=== PATIENT | female | born 1985 | race Caucasian/White ===

== ENCOUNTER 2016-07-04 04:49 | Emergency (ER) | payer OTHER ==
[2016-07-04] MEDS ORDERED: ACETAMINOPHEN IV (For NPO) 1,000 MG in SALINE 100 100ML.BAG IVPB STA (05:03)
[2016-07-04] MEDS ORDERED: SODIUM CHLORIDE 0.9% 1,000 ML IV STA (05:03)
[2016-07-04] MEDS ORDERED: ONDANSETRON 4 MG/2 ML VIAL IVP STA ×2 (05:03→06:10)
[2016-07-04 05:31] LABS: Basophils % (A) 0 %; CH 31.6; CHCM 34.7; Eosinophils # (A) 0.1 k/uL (0-0.7); Eosinophils % (A) 1 %; HCT 40.4 % (34.0-46.0); HDW 2.54; HGB 13.5 gm/dL (11.4-16.0); Luc # (Auto) 0.11; Luc % (Auto) 1; Lymphocytes # (A) 1.2 k/uL (1.0-4.8); Lymphocytes % (A) 8 %; MCH 30.5 pg (25.0-35.0); MCHC 33.4 g/dL (31.0-37.0); MCV 91.1 fL (80.0-100.0); Mean Platelet Volume 7.4; Monocytes # (A) 0.6 k/uL (0-1.0); Monocytes % (A) 4 %; Neutrophils # (A) 11.9 k/uL (1.3-7.7); Neutrophils % (A) 86 %; RBC 4.44 m/uL (3.80-5.40); RDW 12.7 % (11.5-15.5); WBC (Perox) 13.37
[2016-07-04 05:45] LABS: ALT 50 U/L (9-52); AST 28 U/L (14-36); Alkaline Phosphatase 79 U/L (38-126); Amylase 78 U/L (30-110); Anion Gap 13 mmol/L; Blood Urea Nitrogen 13 mg/dL (7-17); Calcium 9.6 mg/dL (8.4-10.2); Carbon Dioxide 22 mmol/L (22-30); Chloride 107 mmol/L (98-107); Glucose 96 mg/dL (74-99); Non-African American GFR(MDRD) >60 (>60 ml/min/1.73 sqM); Potassium 3.8 mmol/L (3.5-5.1); Sodium 142 mmol/L (137-145); Total Bilirubin 0.7 mg/dL (0.2-1.3); Total Protein 7.7 g/dL (6.3-8.2)
[2016-07-04] MEDS ORDERED: ONDANSETRON 4 MG ODT STARTER PACK 2 TAB BTL PO STA (06:09)
--- NOTE | 2016-07-04 06:09 | ED ---
General Adult HPI - General Chief complaint: Nausea/Vomiting/Diarrhea Stated complaint: vomitting Time Seen by Provider: 07/04/16 05:55 Source: patient, RN notes reviewed Mode of arrival: ambulatory Limitations: no limitations - History of Present Illness Initial comments: This is a 30-year-old female who presents to the emergency department complaining of vomiting since 1 AM. Patient states she has not been able to stop since she woke up. Patient denies any abdominal pain but she states her abdomen is sore. Patient denies any diarrhea. Patient denies any fever or chills. Patient denies any chest pain difficulty breathing or shortness of breath. Patient states no one around her is having similar symptoms. Patient denies any back pain. Patient denies any dysuria hematuria urinary frequency. - Related Data Home Medications Medication Instructions Recorded Confirmed No Known Home Medications [No 07/04/16 07/04/16 Known Home Medications] Allergies Allergy/AdvReac Type Severity Reaction Status Date / Time No Known Allergies Allergy Verified 07/04/16 04:55 Review of Systems ROS Statement: Those systems with pertinent positive or pertinent negative responses have been documented in the HPI. ROS Other: All systems not noted in ROS Statement are negative. Past Medical History Past Medical History: Hypertension Additional Past Medical History / Comment(s): kidney stones History of Any Multi-Drug Resistant Organisms: MRSA Date of last positivie culture/infection: 05/28/16 MDRO Source:: left arm Past Surgical History: Section, Cholecystectomy, Hernia Repair, Hysterectomy, Orthopedic Surgery Additional Past Surgical History / Comment(s): cervical cancer Past Psychological History: Anxiety Smoking Status: Never smoker Past Alcohol Use History: None Reported, Occasional Past Drug Use History: None Reported General Exam - General Exam Comments Initial Comments: GENERAL: Patient is well-developed and well-nourished. Patient is nontoxic and well- hydrated and is in mild distress. ENT: Neck is soft and supple. No significant lymphadenopathy is noted. Oropharynx is clear. Moist mucous membranes. Neck has full range of motion without eliciting any pain. EYES: The sclera were anicteric and conjunctiva were pink and moist. Extraocular movements were intact and pupils were equal round and reactive to light. Eyelids were unremarkable. PULMONARY: Unlabored respirations. Good breath sounds bilaterally. No audible rales rhonchi or wheezing was noted. CARDIOVASCULAR: There is a regular rate and rhythm without any murmurs gallops or rubs. ABDOMEN: Soft and nontender with normal bowel sounds. SKIN: Skin is clear with no lesions or rashes and otherwise unremarkable. NEUROLOGIC: Patient is alert and oriented x3. Cranial nerves II through XII are grossly intact. Motor and sensory are also intact. Normal speech, volume and content. MUSCULOSKELETAL: Normal extremities with adequate strength and full range of motion. No lower extremity swelling or edema. No calf tenderness. PSYCHIATRIC: Normal psychiatric evaluation. Limitations: no limitations Course Vital Signs 07/04/16 07/04/16 04:51 06:34 Temperature 97.6 F 97 F L Pulse Rate 97 80 Respiratory 20 18 Rate Blood Pressure 148/95 133/74 O2 Sat by Pulse 100 98 Oximetry Medical Decision Making - Medical Decision Making After the initial shot of Zofran patient still had a little nausea so I repeated the dose patient received fluids and Zofran in the ER she was feeling considerably better at this point time she wanted to go home. - Lab Data Result diagrams: 07/04/16 05:30 07/04/16 05:30 Lab Results 07/04/16 07/04/16 Range/Units 05:30 05:30 WBC 14.0 H (3.8-10.6) k/uL RBC 4.44 (3.80-5.40) m/uL Hgb 13.5 (11.4-16.0) gm/dL Hct 40.4 (34.0-46.0) % MCV 91.1 (80.0-100.0) fL MCH 30.5 (25.0-35.0) pg MCHC 33.4 (31.0-37.0) g/dL RDW 12.7 (11.5-15.5) % Plt Count 205 (150-450) k/uL Neutrophils % 86 % Lymphocytes % 8 % Monocytes % 4 % Eosinophils % 1 % Basophils % 0 % Neutrophils # 11.9 H (1.3-7.7) k/uL Lymphocytes # 1.2 (1.0-4.8) k/uL Monocytes # 0.6 (0-1.0) k/uL Eosinophils # 0.1 (0-0.7) k/uL Basophils # 0.0 (0-0.2) k/uL Sodium 142 (137-145) mmol/L Potassium 3.8 (3.5-5.1) mmol/L Chloride 107 (98-107) mmol/L Carbon Dioxide 22 (22-30) mmol/L Anion Gap 13 mmol/L BUN 13 (7-17) mg/dL Creatinine 0.80 (0.52-1.04) mg/dL Est GFR (MDRD) Af Amer >60 (>60 ml/min/1.73 sqM) Est GFR (MDRD) Non-Af >60 (>60 ml/min/1.73 sqM) Glucose 96 (74-99) mg/dL Calcium 9.6 (8.4-10.2) mg/dL Total Bilirubin 0.7 (0.2-1.3) mg/dL AST 28 (14-36) U/L ALT 50 (9-52) U/L Alkaline Phosphatase 79 (38-126) U/L Total Protein 7.7 (6.3-8.2) g/dL Albumin 4.7 (3.5-5.0) g/dL Amylase 78 (30-110) U/L Lipase 73 (23-300) U/L Disposition Clinical Impression: Nausea & vomiting Disposition: HOME SELF-CARE Instructions: Acute Nausea and Vomiting (ED) Referrals: Amparo Felder MD [Primary Care Provider] - 1-2 days Time of Disposition: 06:09
[2016-07-04 06:37] VITALS: BP 133/74; PULSE 80; RESP 18; TEMP 97
== END 2016-07-04 06:38 ==
LOC: EC 04:49
DX: R11.2 Nausea with vomiting, unspecified (principal)
CPT/HCPCS: 96365; 96375; 96376; 96361; 99283; 36415; 80053; 82150; 83690; 85025; J2405; J0131; S0119

== ENCOUNTER 2016-08-05 09:28 | Day surgery (SDC) | payer OTHER ==
[2016-07-31 11:54] VITALS: BMI 22.1
[~2016-08-05 09:28] MED LIST: DEXAMETHASONE SOD PHOSPHATE 10 MG/ML 1 ML VIAL IV ONE; HEPARIN SODIUM,PORCINE 5,000 UNIT/ML 1 ML VIAL SQ ONE; LACTATED RINGERS 1,000 ML IV SCH; LIDOCAINE 1% 20 ML VIAL (10MG/ML) FOR IV START INTRADERMA PRN; ONDANSETRON 4 MG/2 ML VIAL IVP ONE; SCOPOLAMINE 1.5MG/72HR PATCH TRANSDERM ONE
[2016-08-05 11:32] VITALS: RESP 16
--- NOTE | 2016-08-05 12:49 | P.GSHP ---
History of Present Illness H&P Date: 08/05/16 Chief Complaint: Right lower quadrant incisional hernia This is a 28-year-old female who presents today for laparoscopic robotic- assisted repair of a right lower quadrant incisional hernia. Past Medical History Past Medical History: Cancer, Hypertension Additional Past Medical History / Comment(s): Hx stress related hypertension - currently resolved. Hx kidney stones, cervical cancer. History of Any Multi-Drug Resistant Organisms: MRSA Date of last positivie culture/infection: 05/28/16 MDRO Source:: Left arm Past Surgical History: Section, Cholecystectomy, Hernia Repair, Hysterectomy, Orthopedic Surgery Additional Past Surgical History / Comment(s): Has plate and 6 screws in left ankle. Past Anesthesia/Blood Transfusion Reactions: Postoperative Nausea & Vomiting ( PONV) Past Psychological History: Anxiety Smoking Status: Former smoker Past Alcohol Use History: Occasional Additional Past Alcohol Use History / Comment(s): Smoked 1/2PPD for 10 yrs, quit in 2009. Past Drug Use History: None Reported - Past Family History Mother Family Medical History: Cancer Additional Family Medical History / Comment(s): Breast Cancer Medications and Allergies Home Medications Medication Instructions Recorded Confirmed Type HYDROcodone/APAP 5-325MG [[place] 1 tab PO Q6HR PRN 07/31/16 08/05/16 History 5-325] Allergies Allergy/AdvReac Type Severity Reaction Status Date / Time No Known Allergies Allergy Verified 07/31/16 11:35 Surgical - Exam Vital Signs Temp Pulse Resp BP Pulse Ox 98.4 F 80 16 158/84 97 08/05/16 11:27 08/05/16 11:27 08/05/16 11:27 08/05/16 11:27 08/05/16 11:27 - General well developed, no distress - Eyes PERRL - ENT normal pinna - Neck no masses - Respiratory normal expansion - Cardiovascular Rhythm: regular - Abdomen Abdomen: soft, non tender Hernia: incisional (Right lower quadrant incisional hernia measuring 1 cm diameter) Assessment and Plan Plan: Right lower quadrant incisional hernia. We'll perform laparoscopic robotic- assisted repair.
[2016-08-05] MEDS ORDERED: LIDOCAINE 1% INJ 10MG/ML (20 ML MDV) ONE (13:14)
[2016-08-05] MEDS ORDERED: NEOSTIGMINE 1 MG/ML 10 ML VIAL ONE (13:14)
[2016-08-05] MEDS ORDERED: ROCURONIUM BROMIDE 10 MG/ML 10 ML VIAL IV ONE (13:14)
[2016-08-05] MEDS ORDERED: PROPOFOL 10 MG/ML 20 ML VIAL IV ONE (13:14)
[2016-08-05] MEDS ORDERED: SUCCINYLCHOLINE CHLORIDE 100 MG/5 ML SYR IV ONE (13:14)
[2016-08-05] MEDS ORDERED: KETOROLAC 30 MG/ML 1 ML VIAL ONE (13:14)
[2016-08-05] MEDS ORDERED: GLYCOPYRROLATE 0.2 MG/ML 2 ML VIAL ONE (13:14)
[2016-08-05] MEDS ORDERED: fentaNYL (PF) 50 MCG/ML 2 ML AMP ONE (13:14)
[2016-08-05] MEDS ORDERED: MIDAZOLAM 2 MG/2 ML VIAL ONE (13:14)
[2016-08-05] MEDS ORDERED: ONDANSETRON 4 MG/2 ML VIAL ONE (13:14)
[2016-08-05] MEDS: ceFAZolin 2 GM in SODIUM CHLORIDE 0.9% 100 ML IVPB ONE ×2 (13:25→13:34)
[2016-08-05] MEDS ORDERED: BUPIVACAIN-EPI 0.25%-1:200,000 30 ML VIAL SQ ONE ×2 (13:33→13:39)
[2016-08-05] MEDS: HYDROmorphone 1 MG/ML 1 ML SYRINGE IVP PRN ×5 (15:19→16:26)
--- NOTE | 2016-08-05 15:22 | P.OP ---
Date of Procedure: 08/05/16 Preoperative Diagnosis: Recurrent incisional hernia Postoperative Diagnosis: Recurrent incisional hernia Procedure(s) Performed: Laparoscopic robotic repair of recurrent incisional hernia Partial omentectomy Anesthesia: ELLIOTT Surgeon: Andrae Adorno Estimated Blood Loss (ml): 5 Pathology: other (Omentum) Condition: stable Disposition: PACU Description of Procedure: The patient's placed on the endoscopy table in the lateral position. She received general anesthesia. Her abdomen was then prepped and draped in usual sterile fashion. The patient's hernia was previously marked in the preoperative hold area was located to the right of the umbilicus. The skin incision sites were anesthetized 1% local Xylocaine. The skin was incised 11 blade. Using a 5 mm blade less trocar the perineal cavity is entered in the left upper quadrant. After adequate insufflation the laparoscope was then placed the pleural cavity. Next a 8 mm trocar was placed in the left lower quadrant and a 12 mm trocar was placed in the left lateral position. The original 5 mm trocar was exchanged for an 8 mm robotic trocar. The patient's placed the left side up position and then the patient was docked to the robot. The patient's right abdomen was examined and there appeared adhesions to the anterior abdominal wall in the right side of the abdomen. The adhesions were lysed. After the adhesions were taken down there appeared to be to be #2 small incisional hernias. Using the hook cautery the incarcerated omentum was withdrawn from the hernias. And then the fascial defect was closed with oh the lock suture. Next using a ventral light ST mesh the hernia was repaired and this mesh was secured with 20 the lock suture. The patient was then undocked from the robot the needles were retrieved. The omentum was retrieved. The trochars withdrawn. And the fascia of the 12 mm trocar site was closed with 0 Ethibond suture. The skin was closed interrupted 3-0 Monocryl suture. Dermabond dressings was applied. Patient was sent to recovery in stable condition.
[2016-08-05 15:35] VITALS: TEMP 98
[2016-08-05] MEDS ORDERED: PROMETHAZINE INJ 25 MG/ML 1 ML VIAL IVPB ONE (15:35)
[2016-08-05] MEDS ORDERED: HYDROcodone/APAP 7.5-325MG 1 EACH TAB PO ONE ×2 (16:54)
[2016-08-05 18:03] VITALS: BP 116/68; PULSE 80
== END 2016-08-05 18:39 | disposition home or self-care (01) ==
LOC: OR 09:28
PROVIDERS: ATTEND Surgery
DX: K43.2 Incisional hernia without obstruction or gangrene (principal); K66.0 Peritoneal adhesions (postprocedural) (postinfection); Z79.891 Long term (current) use of opiate analgesic; Z86.14 Personal history of Methicillin resistant Staphylococcus aureus infection; Z87.891 Personal history of nicotine dependence
CPT/HCPCS: 49656; C1781; J2250; J1644; J1100; J2550; J2710; J0690; J2405; J2001; J3010; J1885; J1170; J0330; J2704; 88304

== ENCOUNTER 2016-09-15 08:23 | Emergency (ER) | payer OTHER ==
[2016-09-15 08:32] VITALS: RESP 18; TEMP 98.3
[2016-09-15] MEDS ORDERED: ONDANSETRON 4 MG/2 ML VIAL IVP STA (08:52)
[2016-09-15] MEDS ORDERED: SODIUM CHLORIDE 0.9% 1,000 ML IV STA (08:52)
--- NOTE | 2016-09-15 08:54 | ED ---
General Adult HPI - General Chief complaint: Abdominal Pain Stated complaint: post op pain Time Seen by Provider: 09/15/16 08:46 Source: patient, RN notes reviewed Mode of arrival: ambulatory Limitations: no limitations - History of Present Illness Initial comments: Patient 31-year-old female significant past medical history for hernia repair approximately one month ago, who presents emergency room today with a chief complaint of lower abdominal pain that started approximate 4 days ago. She describes it as a "burning" type sensation to the lower abdomen just below her bellybutton. Patient states seems to be worse with certain movements at times. She currently rates pain 2/10. Denies radiation. Does admit to some nausea. Denies any other complaints or symptoms. Patient denies any recent fever, chills, shortness of breath, chest pain, back pain, vomiting, numbness or tingling, dysuria or hematuria, constipation or diarrhea, headaches or visual changes, or any other complaints. - Related Data Home Medications Medication Instructions Recorded Confirmed HYDROcodone/APAP 5-325MG [[place] 1 tab PO Q6HR PRN 07/31/16 09/15/16 5-325] Docusate [Colace] 100 - 200 mg PO BID PRN 09/15/16 09/15/16 HYDROcodone/APAP 7.5-325MG [[place] 1 tab PO Q4H PRN 09/15/16 09/15/16 7.5] Allergies Allergy/AdvReac Type Severity Reaction Status Date / Time No Known Allergies Allergy Verified 09/15/16 09:06 Review of Systems ROS Statement: Those systems with pertinent positive or pertinent negative responses have been documented in the HPI. ROS Other: All systems not noted in ROS Statement are negative. Past Medical History Past Medical History: Cancer, Hypertension Additional Past Medical History / Comment(s): Hx stress related hypertension - currently resolved. Hx kidney stones, cervical cancer. History of Any Multi-Drug Resistant Organisms: MRSA Date of last positivie culture/infection: 05/28/16 MDRO Source:: Left arm Past Surgical History: Section, Cholecystectomy, Hernia Repair, Hysterectomy, Orthopedic Surgery Additional Past Surgical History / Comment(s): Has plate and 6 screws in left ankle. Past Anesthesia/Blood Transfusion Reactions: Postoperative Nausea & Vomiting ( PONV) Past Psychological History: Anxiety Smoking Status: Former smoker Past Alcohol Use History: Occasional Additional Past Alcohol Use History / Comment(s): Smoked 1/2PPD for 10 yrs, quit in 2009. Past Drug Use History: None Reported - Past Family History Mother Family Medical History: Cancer Additional Family Medical History / Comment(s): Breast Cancer General Exam - General Exam Comments Initial Comments: General: The patient is awake and alert, in no distress, and does not appear acutely ill. Eye: Pupils are equal, round and reactive to light, extra-ocular movements are intact. No nystagmus. There is normal conjunctiva bilaterally. No signs of icterus. Ears, nose, mouth and throat: There are moist mucous membranes and no oral lesions. Neck: The neck is supple, there is no tenderness or JVD. Cardiovascular: There is a regular rate and rhythm. No murmur, rub or gallop is appreciated. Respiratory: Lungs are clear to auscultation, respirations are non-labored, breath sounds are equal. No wheezes, stridor, rales, or rhonchi. Gastrointestinal: Soft, non-distended, non-tender abdomen without masses or organomegaly noted. There is no rebound or guarding present. No CVA tenderness. Bowel sounds are unremarkable. Musculoskeletal: Normal ROM, no tenderness. Strength 5/5. Sensation intact. Pulses equal bilaterally 2+. Neurological: A&O x 3. CN II-XII intact, There are no obvious motor or sensory deficits. Coordination appears grossly intact. Speech is normal. Skin: Skin is warm and dry and no rashes or lesions are noted. Psychiatric: Cooperative, appropriate mood & affect, normal judgment. Limitations: no limitations Course Vital Signs 09/15/16 09/15/16 08:29 09:18 Temperature 98.3 F Pulse Rate 82 72 Respiratory 18 18 Rate Blood Pressure 126/83 142/83 O2 Sat by Pulse 99 98 Oximetry Medical Decision Making - Medical Decision Making Patient reexamined at this time shows no signs of distress. Patient's abdomen is soft on reexam. Patient's labs reviewed. Mild elevation of AST ALT. Patient's glucose 64. Has eaten here feeling well no dizziness or lightheadedness. Remaining labs unremarkable. No white count. Negative lactic acid. Vital stable with no fever. Case discussed with attending physician Dr. Wong. Patient will be discharged home advised follow-up with her appointment in the next 3 days. She is advised return for any fever or increase or worsening of symptoms. She states understanding and is in agreement. - Lab Data Result diagrams: 09/15/16 09:20 09/15/16 09:20 Lab Results 09/15/16 09/15/16 09/15/16 Range/Units 09:20 09:20 09:20 WBC 6.0 (3.8-10.6) k/uL RBC 4.12 (3.80-5.40) m/uL Hgb 13.0 (11.4-16.0) gm/dL Hct 37.0 (34.0-46.0) % MCV 89.9 (80.0-100.0) fL MCH 31.6 (25.0-35.0) pg MCHC 35.2 (31.0-37.0) g/dL RDW 12.4 (11.5-15.5) % Plt Count 218 (150-450) k/uL Neutrophils % 53 % Lymphocytes % 34 % Monocytes % 6 % Eosinophils % 3 % Basophils % 1 % Neutrophils # 3.2 (1.3-7.7) k/uL Lymphocytes # 2.0 (1.0-4.8) k/uL Monocytes # 0.4 (0-1.0) k/uL Eosinophils # 0.2 (0-0.7) k/uL Basophils # 0.0 (0-0.2) k/uL Sodium 144 (137-145) mmol/L Potassium 4.0 (3.5-5.1) mmol/L Chloride 106 (98-107) mmol/L Carbon Dioxide 27 (22-30) mmol/L Anion Gap 11 mmol/L BUN 11 (7-17) mg/dL Creatinine 0.70 (0.52-1.04) mg/dL Est GFR (MDRD) Af Amer >60 (>60 ml/min/1.73 sqM) Est GFR (MDRD) Non-Af >60 (>60 ml/min/1.73 sqM) Glucose 64 L (74-99) mg/dL Plasma Lactic Acid Russ (0.7-2.0) mmol/L Calcium 9.8 (8.4-10.2) mg/dL Total Bilirubin 0.5 (0.2-1.3) mg/dL AST 53 H (14-36) U/L ALT 71 H (9-52) U/L Alkaline Phosphatase 70 (38-126) U/L Total Protein 7.8 (6.3-8.2) g/dL Albumin 4.4 (3.5-5.0) g/dL Lipase 84 (23-300) U/L Urine Color Urine Appearance (Clear) Urine pH (5.0-8.0) Ur Specific Daisy (1.001-1.035) Urine Protein (Negative) Urine Glucose (UA) (Negative) Urine Ketones (Negative) Urine Blood (Negative) Urine Nitrite (Negative) Urine Bilirubin (Negative) Urine Urobilinogen (<2.0) mg/dL Ur Leukocyte Esterase (Negative) Urine HCG, Qual Not Detected (Not Detectd) 09/15/16 09/15/16 Range/Units 09:20 09:20 WBC (3.8-10.6) k/uL RBC (3.80-5.40) m/uL Hgb (11.4-16.0) gm/dL Hct (34.0-46.0) % MCV (80.0-100.0) fL MCH (25.0-35.0) pg MCHC (31.0-37.0) g/dL RDW (11.5-15.5) % Plt Count (150-450) k/uL Neutrophils % % Lymphocytes % % Monocytes % % Eosinophils % % Basophils % % Neutrophils # (1.3-7.7) k/uL Lymphocytes # (1.0-4.8) k/uL Monocytes # (0-1.0) k/uL Eosinophils # (0-0.7) k/uL Basophils # (0-0.2) k/uL Sodium (137-145) mmol/L Potassium (3.5-5.1) mmol/L Chloride (98-107) mmol/L Carbon Dioxide (22-30) mmol/L Anion Gap mmol/L BUN (7-17) mg/dL Creatinine (0.52-1.04) mg/dL Est GFR (MDRD) Af Amer (>60 ml/min/1.73 sqM) Est GFR (MDRD) Non-Af (>60 ml/min/1.73 sqM) Glucose (74-99) mg/dL Plasma Lactic Acid Russ 1.0 (0.7-2.0) mmol/L Calcium (8.4-10.2) mg/dL Total Bilirubin (0.2-1.3) mg/dL AST (14-36) U/L ALT (9-52) U/L Alkaline Phosphatase (38-126) U/L Total Protein (6.3-8.2) g/dL Albumin (3.5-5.0) g/dL Lipase (23-300) U/L Urine Color Colorless Urine Appearance Clear (Clear) Urine pH 6.5 (5.0-8.0) Ur Specific Daisy 1.002 (1.001-1.035) Urine Protein Negative (Negative) Urine Glucose (UA) Negative (Negative) Urine Ketones Negative (Negative) Urine Blood Negative (Negative) Urine Nitrite Negative (Negative) Urine Bilirubin Negative (Negative) Urine Urobilinogen <2.0 (<2.0) mg/dL Ur Leukocyte Esterase Negative (Negative) Urine HCG, Qual (Not Detectd) Disposition Clinical Impression: Abdominal pain Disposition: HOME SELF-CARE Condition: Good Instructions: Abdominal Pain (ED) Additional Instructions: Please follow-up with family surgeon in the next 2-3 days. Please return to emergency room if the symptoms increase or worsen or for any other concerns. Referrals: Amparo Felder MD [Primary Care Provider] - 1-2 days Andrae Adorno MD [STAFF PHYSICIAN] - 1-2 days Time of Disposition: 10:24
[2016-09-15 09:20] VITALS: PULSE 72
--- NOTE | 2016-09-15 09:44 | XR ---
EXAMINATION TYPE: XR KUB DATE OF EXAM: 09/15/2016 9:34 AM COMPARISON: NONE HISTORY: Left-sided abdominal pain TECHNIQUE: One view abdominal series FINDINGS: The osseous structures are intact. The bowel gas pattern is nonspecific. Lung bases are clear. Surgi angel clips in the gallbladder fossa. IMPRESSION: 1. Nonspecific abdomen.
[2016-09-15 09:45] LABS: Appearance,Urine Clear (Clear); Bilirubin,Urine Negative (Negative); Glucose,Urine (UA) Negative (Negative); Ketones,Urine Negative (Negative); Leukocyte Esterase,Urine Negative (Negative); Nitrite,Urine Negative (Negative); PH, Urine 6.5 (5.0-8.0); Protein,Urine Negative (Negative); Specific Gravity,Urine 1.002 (1.001-1.035); UA Billing (MACRO vs. MICRO) CHEM; Urobilinogen,Urine <2.0 mg/dL (<2.0)
[2016-09-15 09:50] LABS: Basophils % (A) 1 %; CH 31.5; CHCM 35.2; Eosinophils # (A) 0.2 k/uL (0-0.7); Eosinophils % (A) 3 %; HDW 2.76; Luc # (Auto) 0.21; Luc % (Auto) 3; Lymphocytes % (A) 34 %; MCH 31.6 pg (25.0-35.0); MCHC 35.2 g/dL (31.0-37.0); MCV 89.9 fL (80.0-100.0); Mean Platelet Volume 8.2; Monocytes # (A) 0.4 k/uL (0-1.0); Monocytes % (A) 6 %; Neutrophils # (A) 3.2 k/uL (1.3-7.7); Neutrophils % (A) 53 %; RBC 4.12 m/uL (3.80-5.40); RDW 12.4 % (11.5-15.5); WBC (Perox) 5.98
[2016-09-15 10:40] LABS: ALT 71 U/L (9-52); AST 53 U/L (14-36); Alkaline Phosphatase 70 U/L (38-126); Anion Gap 11 mmol/L; Blood Urea Nitrogen 11 mg/dL (7-17); Calcium 9.8 mg/dL (8.4-10.2); Carbon Dioxide 27 mmol/L (22-30); Chloride 106 mmol/L (98-107); Glucose 64 mg/dL (74-99); Non-African American GFR(MDRD) >60 (>60 ml/min/1.73 sqM); Sodium 144 mmol/L (137-145); Total Bilirubin 0.5 mg/dL (0.2-1.3); Total Protein 7.8 g/dL (6.3-8.2)
[2016-09-15 10:51] VITALS: BP 158/94
== END 2016-09-15 10:56 | disposition home or self-care (01) ==
LOC: EC 08:23
DX: R10.30 Lower abdominal pain, unspecified (principal); R11.0 Nausea; I10 Essential (primary) hypertension; F41.9 Anxiety disorder, unspecified; Z85.41 Personal history of malignant neoplasm of cervix uteri; Z87.891 Personal history of nicotine dependence; Z90.49 Acquired absence of other specified parts of digestive tract; Z90.710 Acquired absence of both cervix and uterus
CPT/HCPCS: 36415; 80053; 83605; 83690; 85025; 81003; 81025; 74000; 99284; 96374; 96361 ×2; J2405

== ENCOUNTER → 2016-10-02 | Outpatient (CLI) | payer OTHER ==
--- NOTE | 2016-10-02 16:37 | CT ---
EXAMINATION TYPE: CT abdomen pelvis w con DATE OF EXAM: 10/02/2016 4:23 PM REFERENCE: Previous study dated 11/23/2015. HISTORY: R10.9 left flank pain, Z85.41 hx cervical CA HISTORY: Left groin pain after hernia repair 4 1/2 weeks ago. History of cervical cancer. REFERENCE: NONE CT DLP: 1126.00 mGy Automated exposure control for dose reduction was used. TECHNIQUE: Helical acquisition through the abdomen and pelvis was obtained following the oral ingesti on of with Oral Contrast and following intravenous administration of 100 mL of Omnipaque 300. The nahomy a was reformatted in axial, coronal and sagittal projections. FINDINGS: There are at least 3 subpleural nodules in the right lower lobe and middle lobe which is s table in comparison with previous examination. There is no pleural or pericardial fluid. The heart is not enlarged. Within the abdomen, the gallbladder is been removed. The liver measures 18 cm. This is largely due to a prominent Julissa's lobe. The spleen is unremarkable. Both adrenal glands are normal. There is no evidence of hydronephrosis or nephrolithiasis. Both kidneys demonstrate function and appe ar morphologically normal. The pancreas is unremarkable. There is no significant retroperitoneal, iliac or inguinal adenopathy. There is follicular change in both ovaries. The uterus is not visualized. The bladder is unremarkable. The left side of the colon is collapsed. The appendix is normal. Small bowel loops are normal. No free air is seen. There is a small amount of free fluid within the pelvis. There are sclerotic foci in the left humeral head as well as the acetabulum. There is no significant degenerative change. IMPRESSION: 1. NO EVIDENCE OF HYDRONEPHROSIS OR NEPHROLITHIASIS. 2. COLLAPSE OF THE LEFT SIDE OF THE COLON MAKES IT DIFFICULT TO ASSESS COLONIC WALL THICKNESS. PLEASE CORRELATE CLINICALLY TO EXCLUDE COLITIS. 3. MULTIPLE STABLE PULMONARY NODULES. 4. SEVERAL STABLE SCLEROTIC FOCI DESCRIBED. THIS IN COMBINATION WITH MULTIPLE PULMONARY NODULES RA ISES A MILD SUSPICION FOR METASTATIC DISEASE. A NUCLEAR MEDICINE WHOLE BODY BONE SCAN WOULD BE RECOMM ENDED.
== END | disposition home or self-care (01) ==
LOC: RADCTMAIN 15:51
PROVIDERS: ATTEND Internal Medicine
DX: K63.89 Other specified diseases of intestine (principal); Z85.41 Personal history of malignant neoplasm of cervix uteri
CPT/HCPCS: 74177; Q9967

== ENCOUNTER → 2016-10-08 | Outpatient (CLI) | payer OTHER ==
--- NOTE | 2016-10-08 15:04 | NM ---
EXAMINATION TYPE: NM bone scan whole body DATE OF EXAM: 10/08/2016 2:59 PM COMPARISON: NONE HISTORY: Cervical cancer Delayed whole-body scanning was performed following the injection of 27.1 mCi Tc 99m MDP. Images acq uired 3 hours post injection. FINDINGS: Uptake within the left foot likely post traumatic or post arthritic. No suspicious areas of abnormal increased or reduced uptake. Faint area of abnormal uptake in the upper thoracic spine likely degenerative. IMPRESSION: No suspicious uptake to suggest metastases.
== END | disposition home or self-care (01) ==
LOC: RADNMMAIN 11:16
PROVIDERS: ATTEND Internal Medicine
DX: R91.8 Other nonspecific abnormal finding of lung field (principal); Z85.41 Personal history of malignant neoplasm of cervix uteri
CPT/HCPCS: 78306; A9503

== ENCOUNTER 2016-10-10 22:51 | Emergency (ER) | payer OTHER ==
[2016-10-10 23:01] VITALS: BP 125/77; PULSE 92; RESP 20; TEMP 99.3
[2016-10-10] MEDS ORDERED: SULFAMETH-TMP DS STARTER PACK 2 TAB BTL PO STA (23:53)
--- NOTE | 2016-10-10 23:56 | ED ---
Skin/Abscess/FB HPI - General Chief complaint: Skin/Abscess/Foreign Body Stated complaint: left axillary boil Time Seen by Provider: 10/10/16 23:08 Source: patient, family Mode of arrival: ambulatory Limitations: no limitations - History of Present Illness Initial comments: Patient is a 32-year-old [employer] chief complaint of abscess underneath her left axilla. Patient reports that she's had these before. She states that she cannot receive the rate of them. Patient states she's never seen a industrial refrigeration mechanic before. She states she's had no fever or chills patient has feels hard lumps underneath her left axilla patient denies any pain or abscess in the right ankle. Patient states that she has not had any recent antibiotics. Denies any fever or chills, denies any chest pain, shortness of breath, nausea, vomiting, abdominal pain, changes in urination and bowel movements. denies any headache or changes in vision. - Related Data Home Medications Medication Instructions Recorded Confirmed HYDROcodone/APAP 5-325MG [[place] 1 tab PO Q6HR PRN 07/31/16 10/10/16 5-325] HYDROcodone/APAP 7.5-325MG [[place] 1 tab PO Q4H PRN 09/15/16 10/10/16 7.5] Previous Rx's Medication Instructions Recorded HYDROcodone/APAP 5-325MG [[place] 1 tab PO Q6HR PRN #10 tab 10/10/16 5-325] Sulfamethox-Tmp 800-160Mg [Bactrim 1 tab PO Q12HR #14 tab 10/10/16 DS 800-160 mg] Allergies Allergy/AdvReac Type Severity Reaction Status Date / Time No Known Allergies Allergy Verified 10/10/16 23:01 Review of Systems ROS Statement: Those systems with pertinent positive or pertinent negative responses have been documented in the HPI. ROS Other: All systems not noted in ROS Statement are negative. Past Medical History Past Medical History: Cancer, Hypertension Additional Past Medical History / Comment(s): Hx stress related hypertension - currently resolved. Hx kidney stones, cervical cancer. History of Any Multi-Drug Resistant Organisms: MRSA Date of last positivie culture/infection: 05/28/16 MDRO Source:: Left arm Past Surgical History: Section, Cholecystectomy, Hernia Repair, Hysterectomy, Orthopedic Surgery Additional Past Surgical History / Comment(s): Has plate and 6 screws in left ankle. Past Anesthesia/Blood Transfusion Reactions: Postoperative Nausea & Vomiting ( PONV) Past Psychological History: Anxiety Smoking Status: Former smoker Past Alcohol Use History: Occasional Additional Past Alcohol Use History / Comment(s): Smoked 1/2PPD for 10 yrs, quit in 2009. Past Drug Use History: None Reported - Past Family History Mother Family Medical History: Cancer Additional Family Medical History / Comment(s): Breast Cancer General Exam - General Exam Comments Initial Comments: Pleasant 31-year-old female. No distress. Limitations: no limitations General appearance: alert, in no apparent distress Head exam: Present: atraumatic, normocephalic, normal inspection Eye exam: Present: normal appearance, PERRL, EOMI. Absent: scleral icterus, conjunctival injection, periorbital swelling ENT exam: Present: normal exam, mucous membranes moist Neck exam: Present: normal inspection. Absent: tenderness, meningismus, lymphadenopathy Respiratory exam: Present: normal lung sounds bilaterally. Absent: respiratory distress, wheezes, rales, rhonchi, stridor Cardiovascular Exam: Present: regular rate, normal rhythm, normal heart sounds. Absent: systolic murmur, diastolic murmur, rubs, gallop, clicks GI/Abdominal exam: Present: soft, normal bowel sounds. Absent: distended, tenderness, guarding, rebound, rigid Extremities exam: Present: normal inspection, full ROM, normal capillary refill. Absent: tenderness, pedal edema, joint swelling, calf tenderness Back exam: Present: normal inspection Neurological exam: Present: alert, oriented X3, CN II-XII intact Psychiatric exam: Present: normal affect, normal mood Skin exam: Present: warm, dry, intact, normal color, erythema (Left axilla. Multiple hard nodules and abscesses. Consistent with hydradenitis suppuritiva.) . Absent: rash Course Vital Signs 10/10/16 22:58 Temperature 99.3 F Pulse Rate 92 Respiratory 20 Rate Blood Pressure 125/77 O2 Sat by Pulse 100 Oximetry Medical Decision Making - Medical Decision Making is 31-year-old female with multiple abscesses and nodules in the left axilla. Patient reports she's had them drained in the past. Patient had 2 large nodules that are causing most pain. Patient wants them incised and drained. Patient did have significant pus and wound culture was obtained. Patient was started on Bactrim and given pain medication. Patient received treatment plan will comply. Discussion is follow-up with industrial refrigeration mechanic. Patient history plan will comply. Disposition Clinical Impression: Axillary hidradenitis suppurativa Disposition: HOME SELF-CARE Condition: Good Instructions: Abscess Incision and Drainage (ED) Additional Instructions: Patient is follow-up with industrial refrigeration mechanic regards to her hydranitis suppurivica Patient needs to take entire antibiotic prescription and use pain medication instructed. Remove drain in a privately 3 days. Return to emergency department if any alarming signs or symptoms occur. Prescriptions: HYDROcodone/APAP 5-325MG [[place] 5-325] 1 tab PO Q6HR PRN #10 tab PRN Reason: Pain Sulfamethox-Tmp 800-160Mg [Bactrim DS 800-160 mg] 1 tab PO Q12HR #14 tab Referrals: Amparo Felder MD [Primary Care Provider] - 1-2 days Time of Disposition: 23:54
[2016-10-11] MEDS ORDERED: ACET/COD 300 MG/30 MG STARTER PACK 6 TAB BTL PO STA (00:23)
== END 2016-10-11 00:34 | disposition home or self-care (01) ==
LOC: EC 22:51
DX: L73.2 Hidradenitis suppurativa (principal); Z87.891 Personal history of nicotine dependence
CPT/HCPCS: 87070; 87077; 87186; 87205; 99283

== ENCOUNTER 2016-10-22 09:00 | Day surgery (SDC) | payer OTHER ==
[2016-10-20 14:11] VITALS: BMI 22.8
[~2016-10-22 09:00] MED LIST changes: -DEXAMETHASONE SOD PHOSPHATE 10 MG/ML 1 ML VIAL IV ONE; -HEPARIN SODIUM,PORCINE 5,000 UNIT/ML 1 ML VIAL SQ ONE; -LIDOCAINE 1% 20 ML VIAL (10MG/ML) FOR IV START INTRADERMA PRN; -ONDANSETRON 4 MG/2 ML VIAL IVP ONE; -SCOPOLAMINE 1.5MG/72HR PATCH TRANSDERM ONE
[2016-10-22 09:13] VITALS: TEMP 98
[2016-10-22] MEDS ORDERED: fentaNYL (PF) 50 MCG/ML 2 ML AMP ONE (09:34)
[2016-10-22] MEDS ORDERED: PROPOFOL 10 MG/ML 20 ML VIAL IV ONE (09:34)
[2016-10-22] MEDS ORDERED: MIDAZOLAM 2 MG/2 ML VIAL ONE (09:34)
[2016-10-22 10:04] VITALS: RESP 18
[2016-10-22 10:18] VITALS: BP 124/78; PULSE 72
--- NOTE | 2016-10-22 11:28 | P.PCN ---
Date of Procedure: 10/22/16 Procedure(s) Performed: Procedure: Total colonoscopy and biopsy. Preoperative diagnosis: Change in bowel habits and abnormal CT of the abdomen. Postoperative diagnosis: Exam of the colon and terminal ileum within normal limits. Preparation: HalfLytely prep. Sedation: Was provided by anesthesia. Brief clinical history: The patient is a 31-year-old female who is referred for this evaluation because of abnormal CT of the abdomen with poor visualization of the right colon because of lack of distention. The patient has been having issues with loose and diarrheic stools that started this year. Prior to that, used to have a bowel movement every few days. No family history of inflammatory bowel disease. She had hysterectomy for cervical cancer. No extraintestinal manifestations of inflammatory bowel disease. Procedure: With the patient on her left lateral decubitus position and after informed consent and adequate sedation, the perianal area was inspected and it did not show any fissures or fistulas. There were no masses felt on digital rectal examination. The Olympus CFQ 160L video colonoscope was then inserted in the rectum in the usual fashion and advanced to the cecum. I intubated the ileocecal valve and examined the terminal ileum. Terminal ileum and colon appeared healthy with no edema, erythema, friability, ulceration, exudation or spontaneous bleeding. No polyps or tumors were seen or any obvious diverticular disease. I retroflexed endoscope in the rectum and I obtained biopsies from the terminal ileum and right colon before the endoscope was withdrawn. The patient tolerated the procedure well. Plan: The patient was reassured. Will await biopsy results. Further plans based on her course. She will follow-up with you as planned.
== END 2016-10-22 10:32 | disposition home or self-care (01) ==
LOC: ORWHC2ENDO 09:00
DX: K52.9 Noninfective gastroenteritis and colitis, unspecified (principal)
CPT/HCPCS: 88305; 45380; J2250; J3010; J2704

== ENCOUNTER 2016-11-08 01:53 | Emergency (ER) | payer OTHER ==
[2016-11-08 02:29] VITALS: BP 153/85; PULSE 92; RESP 20; TEMP 98.5
[2016-11-08] MEDS ORDERED: SULFAMETH-TMP DS STARTER PACK 2 TAB BTL PO STA (02:42)
--- NOTE | 2016-11-08 02:44 | ED ---
Skin/Abscess/FB HPI - General Chief complaint: Skin/Abscess/Foreign Body Stated complaint: abcess under left arm Time Seen by Provider: 11/08/16 02:25 Source: patient, RN notes reviewed, old records reviewed Mode of arrival: ambulatory Limitations: no limitations - History of Present Illness Initial comments: This is a 31 year old female with recurrent left axilla abscess. PAtient was incised and drained, and the culture grew MRSA. PAtient states that she was doing better once on BActrim, but the abscess reoccured once she was off of them. She states that it is panful to move her arm. Denies any increased redness around the site. Denies any fever, chills, nausea vomiting, abdominal pain. - Related Data Home Medications Medication Instructions Recorded Confirmed Multivitamin [Multivitamins Adult 1 each PO DAILY 10/20/16 11/08/16 Gummies] Previous Rx's Medication Instructions Recorded HYDROcodone/APAP 5-325MG [[place] 1 tab PO Q6HR PRN #10 tab 10/10/16 5-325] Sulfamethox-Tmp 800-160Mg [Bactrim 2 tab PO Q12HR 7 Days 11/08/16 DS 800-160 mg] Allergies Allergy/AdvReac Type Severity Reaction Status Date / Time No Known Allergies Allergy Verified 11/08/16 02:06 Review of Systems ROS Statement: Those systems with pertinent positive or pertinent negative responses have been documented in the HPI. ROS Other: All systems not noted in ROS Statement are negative. Past Medical History Past Medical History: Cancer, Hypertension Additional Past Medical History / Comment(s): states "intermittent abdominal pain and left side of colon being collapsed on CT scan, also stated stable pulmonary nodules on ct scan",Hx stress related hypertension - currently resolved. Hx kidney stones, cervical cancer. History of Any Multi-Drug Resistant Organisms: MRSA Date of last positivie culture/infection: 10-11-2016 MDRO Source:: Left arm axilla Past Surgical History: Section, Cholecystectomy, Hernia Repair, Hysterectomy, Orthopedic Surgery Additional Past Surgical History / Comment(s): Has plate and 6 screws in left ankle-hardware removed lt ankle August 2016,hernia repairs x 4,c sect x3 Past Anesthesia/Blood Transfusion Reactions: Family History of Problems w/ Anesthesia, Postoperative Nausea & Vomiting (PONV) Additional Past Anesthesia/Blood Transfusion Reaction / Comment(s): mother has PONV,no hx blood transfusion Past Psychological History: Anxiety Smoking Status: Former smoker Past Alcohol Use History: Occasional Additional Past Alcohol Use History / Comment(s): Smoked 1/2PPD for 10 yrs, quit in 2009. Past Drug Use History: None Reported - Past Family History Mother Family Medical History: Cancer, Hypertension Additional Family Medical History / Comment(s): Breast Cancer,fadia mastectomy Father Family Medical History: Asthma, Diabetes Mellitus, Hypertension, Rheumatoid Arthritis (RA) General Exam - General Exam Comments Initial Comments: Pleasant 31 year old female, no distress. Limitations: no limitations General appearance: alert, in no apparent distress Head exam: Present: atraumatic, normocephalic, normal inspection Eye exam: Present: normal appearance, PERRL, EOMI. Absent: scleral icterus, conjunctival injection, periorbital swelling ENT exam: Present: normal exam, mucous membranes moist Neck exam: Present: normal inspection. Absent: tenderness, meningismus, lymphadenopathy Respiratory exam: Present: normal lung sounds bilaterally. Absent: respiratory distress, wheezes, rales, rhonchi, stridor Cardiovascular Exam: Present: regular rate, normal rhythm, normal heart sounds. Absent: systolic murmur, diastolic murmur, rubs, gallop, clicks GI/Abdominal exam: Present: soft, normal bowel sounds. Absent: distended, tenderness, guarding, rebound, rigid Extremities exam: Present: normal inspection, full ROM, normal capillary refill , other (left axilla abscess measuring 2 cm and deep, not ready to be drained. ) . Absent: tenderness, pedal edema, joint swelling, calf tenderness Back exam: Present: normal inspection Neurological exam: Present: alert, oriented X3, CN II-XII intact Psychiatric exam: Present: normal affect, normal mood Skin exam: Present: warm, dry, intact, normal color. Absent: rash Course Vital Signs 11/08/16 11/08/16 02:02 02:54 Temperature 98.5 F 98.5 F Pulse Rate 92 92 Respiratory 20 20 Rate Blood Pressure 153/85 153/85 O2 Sat by Pulse 99 99 Oximetry Medical Decision Making - Medical Decision Making This is a 31 year old female with chief complaint of recurrent left axilla abscess. Abscess is approximately 2 cm and deep, not ready to be incised and drained at this time. Discussed diagnosis of hydrinatis suppurativa. Patient relates she has appointment with dermatology in 3 days. Patient will be started on bactrim, advised to apply warm conpresses on the area. Patient agrees to treatment plan and return parameters were discussed. Disposition Clinical Impression: Abscess of left axilla, Axillary hidradenitis suppurativa Disposition: HOME SELF-CARE Condition: Good Instructions: Abscess (ED) Additional Instructions: eye secondary apply warm compresses over the area. Take at home pain medication and anxiety medication. Return the emergency department if any alarming signs or symptoms occur. Follow-up with your supervisor pressing department on Wednesday. Prescriptions: Sulfamethox-Tmp 800-160Mg [Bactrim DS 800-160 mg] 2 tab PO Q12HR 7 Days Referrals: Amparo Felder MD [Primary Care Provider] - 1-2 days Time of Disposition: 02:43
== END 2016-11-08 02:54 | disposition home or self-care (01) ==
LOC: EC 01:53
DX: L02.412 Cutaneous abscess of left axilla (principal); L73.2 Hidradenitis suppurativa; Z86.14 Personal history of Methicillin resistant Staphylococcus aureus infection; Z85.9 Personal history of malignant neoplasm, unspecified; Z87.891 Personal history of nicotine dependence; Z79.899 Other long term (current) drug therapy
CPT/HCPCS: 99283

== ENCOUNTER 2016-11-26 09:14 | Emergency (ER) | payer OTHER ==
[2016-11-26] MEDS ORDERED: MAG HYDROX/AL HYDROX/SIMETH 30 ML, HYOSCYAMINE ELIXIR 10 ML, CIMETIDINE HCL 300 MG, LID... PO STA ×4 (10:02)
--- NOTE | 2016-11-26 10:20 | ED ---
General Adult HPI - General Chief complaint: Chest Pain Stated complaint: HEARTBURN, SENT BY [facility] EKG Time Seen by Provider: 11/26/16 09:57 Source: patient, RN notes reviewed Mode of arrival: wheelchair Limitations: no limitations - History of Present Illness Initial comments: Patient is a 31-year-old female who presents emergency room today with a chief complaint of some acid reflux. She states that she noticed it last night approximately midnight. She states that seem to go away. She states she woke up this morning she was getting ready came back. She describes it as a "burning " type pain. States feels it in the lower portion of her chest. She also admits that she feels some pain to her back. She states she went to urgent care who performed an EKG. She states she was not told anything about but they advised to come here to the emergency room for further evaluation. She denies any other complaints at this time. Patient denies any recent fever, chills, shortness of breath, abdominal pain, nausea or vomiting, numbness or tingling, dysuria or hematuria, constipation or diarrhea, headaches or visual changes, or any other complaints. - Related Data Home Medications Medication Instructions Recorded Confirmed Multivitamin with Iron 1 tab PO DAILY 11/26/16 11/26/16 [Multivitamins with Iron] Previous Rx's Medication Instructions Recorded HYDROcodone/APAP 5-325MG [[place] 1 tab PO Q6HR PRN #10 tab 10/10/16 5-325] Famotidine [Pepcid] 20 mg PO BID #20 tablet 11/26/16 Allergies Allergy/AdvReac Type Severity Reaction Status Date / Time No Known Allergies Allergy Verified 11/26/16 10:16 Review of Systems ROS Statement: Those systems with pertinent positive or pertinent negative responses have been documented in the HPI. ROS Other: All systems not noted in ROS Statement are negative. Past Medical History Past Medical History: Cancer, Hypertension Additional Past Medical History / Comment(s): states "intermittent abdominal pain and left side of colon being collapsed on CT scan, also stated stable pulmonary nodules on ct scan",Hx stress related hypertension - currently resolved. Hx kidney stones, cervical cancer. History of Any Multi-Drug Resistant Organisms: MRSA Date of last positivie culture/infection: 10-11-2016 MDRO Source:: Left arm axilla Past Surgical History: Section, Cholecystectomy, Hernia Repair, Hysterectomy, Orthopedic Surgery Additional Past Surgical History / Comment(s): Has plate and 6 screws in left ankle-hardware removed lt ankle August 2016,hernia repairs x 4,c sect x3 Past Anesthesia/Blood Transfusion Reactions: Family History of Problems w/ Anesthesia, Postoperative Nausea & Vomiting (PONV) Additional Past Anesthesia/Blood Transfusion Reaction / Comment(s): mother has PONV,no hx blood transfusion Past Psychological History: Anxiety Smoking Status: Former smoker Past Alcohol Use History: Occasional Additional Past Alcohol Use History / Comment(s): Smoked 1/2PPD for 10 yrs, quit in 2009. Past Drug Use History: None Reported - Past Family History Mother Family Medical History: Cancer, Hypertension Additional Family Medical History / Comment(s): Breast Cancer,fadia mastectomy Father Family Medical History: Asthma, Diabetes Mellitus, Hypertension, Rheumatoid Arthritis (RA) General Exam - General Exam Comments Initial Comments: General: The patient is awake and alert, in no distress, and does not appear acutely ill. Eye: Pupils are equal, round and reactive to light, extra-ocular movements are intact. No nystagmus. There is normal conjunctiva bilaterally. No signs of icterus. Ears, nose, mouth and throat: There are moist mucous membranes and no oral lesions. Neck: The neck is supple, there is no tenderness or JVD. Cardiovascular: There is a regular rate and rhythm. No murmur, rub or gallop is appreciated. Respiratory: Lungs are clear to auscultation, respirations are non-labored, breath sounds are equal. No wheezes, stridor, rales, or rhonchi. Gastrointestinal: Soft, non-distended, non-tender abdomen without masses or organomegaly noted. There is no rebound or guarding present. No CVA tenderness. Bowel sounds are unremarkable. Musculoskeletal: Normal ROM, no tenderness. Strength 5/5. Sensation intact. Pulses equal bilaterally 2+. Neurological: A&O x 3. CN II-XII intact, There are no obvious motor or sensory deficits. Coordination appears grossly intact. Speech is normal. Skin: Skin is warm and dry and no rashes or lesions are noted. Psychiatric: Cooperative, appropriate mood & affect, normal judgment. Limitations: no limitations Course Vital Signs 11/26/16 11/26/16 09:20 10:14 Temperature 98.6 F Pulse Rate 81 84 Respiratory 18 20 Rate Blood Pressure 132/85 164/90 O2 Sat by Pulse 98 Oximetry EKG Findings - EKG Comments: EKG Findings:: EKG performed at 0950: A 12-lead EKG was performed and interpreted by me as showing the following: Rate is 80, and rhythm is normal sinus. There are normal QRS complexes and normal R-wave progression. ST segments have no elevation or depression, and UT segments appear normal. Medical Decision Making - Medical Decision Making Patient reexamined at this time shows no signs of distress. She was given GI cocktail here in the emergency room and does admit to improvement. She states she is pain-free at this time. Patient's EKG unremarkable shows normal sinus rhythm. His x-rays negative. Patient's labs were obtained. Again symptoms obtained and are negative. Patient at this time is pain-free is been resolved with GI cocktail. This that they didn't feel like heartburn to herself. She will be discharged home advised close follow-up the family doctor over the next 2 days advised to return if symptoms increase worsen. Patient advised to use Pepcid for symptoms with [id number] Tums as needed. Advised return if anything increases or worsens or for any other concerns. She states understanding and is in agreement. - Lab Data Result diagrams: 11/26/16 10:39 11/26/16 10:39 Lab Results 11/26/16 11/26/16 11/26/16 Range/Units 10:39 10:39 10:39 WBC 6.7 (3.8-10.6) k/uL RBC 4.55 (3.80-5.40) m/uL Hgb 14.3 (11.4-16.0) gm/dL Hct 42.5 (34.0-46.0) % MCV 93.4 (80.0-100.0) fL MCH 31.4 (25.0-35.0) pg MCHC 33.6 (31.0-37.0) g/dL RDW 12.8 (11.5-15.5) % Plt Count 202 (150-450) k/uL Neutrophils % 58 % Lymphocytes % 33 % Monocytes % 5 % Eosinophils % 1 % Basophils % 1 % Neutrophils # 3.9 (1.3-7.7) k/uL Lymphocytes # 2.2 (1.0-4.8) k/uL Monocytes # 0.4 (0-1.0) k/uL Eosinophils # 0.1 (0-0.7) k/uL Basophils # 0.1 (0-0.2) k/uL Sodium 143 (137-145) mmol/L Potassium 3.8 (3.5-5.1) mmol/L Chloride 104 (98-107) mmol/L Carbon Dioxide 27 (22-30) mmol/L Anion Gap 12 mmol/L BUN 11 (7-17) mg/dL Creatinine 0.74 (0.52-1.04) mg/dL Est GFR (MDRD) Af Amer >60 (>60 ml/min/1.73 sqM) Est GFR (MDRD) Non-Af >60 (>60 ml/min/1.73 sqM) Glucose 89 (74-99) mg/dL Calcium 10.0 (8.4-10.2) mg/dL Total Bilirubin 0.8 (0.2-1.3) mg/dL AST 34 (14-36) U/L ALT 47 (9-52) U/L Alkaline Phosphatase 79 (38-126) U/L Total Creatine Kinase 54 (30-135) U/L CK-MB (CK-2) 0.4 (0.0-2.4) ng/mL CK-MB (CK-2) Rel Index 0.7 Troponin I <0.012 (0.000-0.034) ng/mL Total Protein 8.7 H (6.3-8.2) g/dL Albumin 5.2 H (3.5-5.0) g/dL Disposition Clinical Impression: Acid reflux Disposition: HOME SELF-CARE Condition: Good Instructions: Gastroesophageal Reflux Disease (ED) Additional Instructions: Please use medication as discussed. Please follow-up with family doctor in the next 2 days. Please return to emergency room if the symptoms increase or worsen or for any other concerns. Prescriptions: Famotidine [Pepcid] 20 mg PO BID #20 tablet Referrals: Amparo Felder MD [Primary Care Provider] - 1-2 days Time of Disposition: 11:39
[2016-11-26 10:53] LABS: Basophils # (A) 0.1 k/uL (0-0.2); Basophils % (A) 1 %; CHCM 34.4; Eosinophils # (A) 0.1 k/uL (0-0.7); Eosinophils % (A) 1 %; HCT 42.5 % (34.0-46.0); HDW 2.55; HGB 14.3 gm/dL (11.4-16.0); Luc # (Auto) 0.19; Luc % (Auto) 3; Lymphocytes # (A) 2.2 k/uL (1.0-4.8); Lymphocytes % (A) 33 %; MCH 31.4 pg (25.0-35.0); MCHC 33.6 g/dL (31.0-37.0); MCV 93.4 fL (80.0-100.0); Mean Platelet Volume 7.4; Monocytes # (A) 0.4 k/uL (0-1.0); Monocytes % (A) 5 %; Neutrophils # (A) 3.9 k/uL (1.3-7.7); Neutrophils % (A) 58 %; RBC 4.55 m/uL (3.80-5.40); RDW 12.8 % (11.5-15.5); WBC 6.7 k/uL (3.8-10.6); WBC (Perox) 6.68
--- NOTE | 2016-11-26 11:04 | XR ---
EXAMINATION TYPE: XR chest 2V DATE OF EXAM: 11/26/2016 COMPARISON: 11/23/2015 HISTORY: Chest pain TECHNIQUE: Frontal and lateral views of the chest are obtained. FINDINGS: There is no focal air space opacity. No evidence for pnuemothorax.No pleural effusion. The cardiac silhouette size is within normal limits. The osseous structures are grossly intact. IMPRESSION: 1. No acute cardiopulmonary process.
[2016-11-26 11:05] LABS: ALT 47 U/L (9-52); AST 34 U/L (14-36); Alkaline Phosphatase 79 U/L (38-126); Anion Gap 12 mmol/L; Blood Urea Nitrogen 11 mg/dL (7-17); Carbon Dioxide 27 mmol/L (22-30); Chloride 104 mmol/L (98-107); Glucose 89 mg/dL (74-99); Non-African American GFR(MDRD) >60 (>60 ml/min/1.73 sqM); Potassium 3.8 mmol/L (3.5-5.1); Sodium 143 mmol/L (137-145); Total Bilirubin 0.8 mg/dL (0.2-1.3); Total Protein 8.7 g/dL (6.3-8.2)
[2016-11-26 11:22] LABS: Creatine Kinase 54 U/L (30-135)
[2016-11-26 11:33] LABS: Creatine Kinase MB 0.4 ng/mL (0.0-2.4); Troponin I <0.012 ng/mL (0.000-0.034)
[2016-11-26 11:50] VITALS: BP 108/77; PULSE 87; RESP 18; TEMP 98.4
== END 2016-11-26 11:50 | disposition home or self-care (01) ==
LOC: EC 09:14
DX: K21.9 Gastro-esophageal reflux disease without esophagitis (principal); M54.9 Dorsalgia, unspecified; Z87.891 Personal history of nicotine dependence; Z79.899 Other long term (current) drug therapy; Z85.41 Personal history of malignant neoplasm of cervix uteri; Z90.49 Acquired absence of other specified parts of digestive tract; Z90.710 Acquired absence of both cervix and uterus
CPT/HCPCS: 36415; 71020; 80053; 82550; 82553; 84484; 85025; 93005; 99285

== ENCOUNTER 2016-12-24 21:53 | Emergency (ER) | payer OTHER ==
[2016-12-24 22:12] VITALS: BP 146/84; PULSE 94; RESP 16; TEMP 98.5
--- NOTE | 2016-12-24 23:17 | ED ---
Skin/Abscess/FB HPI - General Chief complaint: Skin/Abscess/Foreign Body Stated complaint: Rash/ Fever Source: patient Mode of arrival: ambulatory Limitations: no limitations - History of Present Illness Initial comments: Patient is a 31-year-old female presenting to the emergency department with complaints of abscess to the left axilla. Patient states it started as a small bump 5 days ago and has gotten increasingly more painful and bigger in size. 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 Patient states she drained some green pus out of the abscess yesterday. Patient denies chills, reports low-grade fever, denies nausea, vomiting, shortness of breath, chest pain, or abdominal pain. Patient denies numbness or tingling. Patient denies possibility of being as she had a hysterectomy. Patient believes she had a tetanus shot less than 5 years ago and prefers to follow-up with her primary care physician if she needs one. MD complaint: abscess/boil Onset/Timin -: days(s) Tetanus Up to Date: unsure Location: LUE (Left axilla) Severity: moderate Severity scale (1-10): 7 Quality: sharp, constant Consistency: constant Improves with: none Worsens with: none Context: other (Abscess under left axilla) Associated symptoms: fever (Patient states she had a temperature of 100 today.) Treatments Prior to Arrival: attempted to drain pus at home - Related Data Home Medications Medication Instructions Recorded Confirmed Multivitamins, Thera [Multivitamin 1 tab PO DAILY 12/24/16 12/24/16 (formulary)] Mupirocin 2% Nasal Oint [Bactroban 1 applic NASAL HS PRN 12/24/16 12/24/16 2% Nasal Oint] Previous Rx's Medication Instructions Recorded HYDROcodone/APAP 5-325MG [Wister 1 tab PO Q6HR PRN #10 tab 10/10/16 5-325] HYDROcodone/APAP 5-325MG [Wister 1 tab PO Q6H PRN #10 tab 12/25/16 5-325] Sulfamethox-Tmp 800-160Mg [Bactrim 1 tab PO Q12HR #20 tab 12/25/16 DS 800-160 mg] Allergies Allergy/AdvReac Type Severity Reaction Status Date / Time No Known Allergies Allergy Verified 12/24/16 22:11 Review of Systems ROS Statement: Those systems with pertinent positive or pertinent negative responses have been documented in the HPI. ROS Other: All systems not noted in ROS Statement are negative. Past Medical History Past Medical History: Cancer, Hypertension Additional Past Medical History / Comment(s): states "intermittent abdominal pain and left side of colon being collapsed on CT scan, also stated stable pulmonary nodules on ct scan",Hx stress related hypertension - currently resolved. Hx kidney stones, cervical cancer. History of Any Multi-Drug Resistant Organisms: MRSA Date of last positivie culture/infection: 10-11-2016 MDRO Source:: Left arm axilla Past Surgical History: Section, Cholecystectomy, Hernia Repair, Hysterectomy, Orthopedic Surgery Additional Past Surgical History / Comment(s): Has plate and 6 screws in left ankle-hardware removed lt ankle August 2016,hernia repairs x 4,c sect x3 Past Anesthesia/Blood Transfusion Reactions: Family History of Problems w/ Anesthesia, Postoperative Nausea & Vomiting (PONV) Additional Past Anesthesia/Blood Transfusion Reaction / Comment(s): mother has PONV,no hx blood transfusion Past Psychological History: Anxiety Smoking Status: Former smoker Past Alcohol Use History: Occasional Past Drug Use History: None Reported - Past Family History Mother Family Medical History: Cancer, Hypertension Additional Family Medical History / Comment(s): Breast Cancer,fadia mastectomy Father Family Medical History: Asthma, Diabetes Mellitus, Hypertension, Rheumatoid Arthritis (RA) General Exam - General Exam Comments Initial Comments: GENERAL: Pt awake and alert, well-appearing, well-nourished, and in no acute distress. HEAD: Atraumatic, normocephalic. EYES: Pupils equal, round, and reactive to light, extraocular movements intact, sclera anicteric, conjunctiva are normal. ENT: Oropharynx clear without exudates. Moist mucous membranes. NECK:Supple without lymphadenopathy. LUNGS: Breath sounds clear to auscultation bilaterally. No wheezes, rales, or rhonchi. HEART: Heart S1, S2, no S3 or S4. Regular rate and rhythm. No murmurs, rubs or gallops. ABDOMEN: Soft, nontender, nondistended, normoactive bowel sounds. No guarding, no rebound. No masses or organomegaly appreciated. EXTREMITIES: 2+ peripheral pulses. No edema. No calf tenderness. NEUROLOGICAL: Pt oriented x 3. No focal deficits noted. Strength and sensation grossly intact. PSYCH: Normal mood, normal affect. SKIN: Warm, dry. 2 cm x 2 cm abscess noted to left axilla with minimal surrounding erythema and minimal induration. Limitations: no limitations Course Vital Signs 12/24/16 22:07 Temperature 98.5 F Pulse Rate 94 Respiratory 16 Rate Blood Pressure 146/84 O2 Sat by Pulse 97 Oximetry Procedures - Incision & Drainage Consent Obtained: verbal consent Time Out Performed?: No Site: other (Left axilla) Size (cm): 2 Anesthetic Used: lidocaine 1% Amount (mLs): 2 I&D Cleaning Method: Chloroprep, Iodine Sterile Field Used?: Yes Scalpel Used: #11 Needle Aspiration Performed?: No Irrigation Performed?: Yes I&D Drainage Obtained: Pus, Blood Packing: Iodoform Culture Obtained?: Yes Patient Tolerated Procedure: well, no complications Medical Decision Making - Medical Decision Making Abscess to left axilla. Incision and drainage performed. Patient tolerated well. Culture obtained. Patient placed on Bactrim. Patient instructed to follow-up with primary care physician. Patient instructed to return to the emergency department with any new worsening symptoms. Discharge instructions and return parameters reviewed. Disposition Clinical Impression: Abscess of left axilla Disposition: HOME SELF-CARE Condition: Good Instructions: Abscess Incision and Drainage (ED) Additional Instructions: Finish antibiotic as prescribed. Continue Wister every 6 hours as needed for moderate pain. Apply warm compresses 3-4 times a day. Follow-up with primary care physician for wound check and next 24-48 hours. Please return to the emergency department with new or worsening symptoms. Prescriptions: HYDROcodone/APAP 5-325MG [Wister 5-325] 1 tab PO Q6H PRN #10 tab PRN Reason: Pain Sulfamethox-Tmp 800-160Mg [Bactrim DS 800-160 mg] 1 tab PO Q12HR #20 tab Referrals: Amparo Felder MD [Primary Care Provider] - 1-2 days Time of Disposition: 00:17
[2016-12-25] MEDS ORDERED: SULFAMETHOX-TMP 800-160MG 1 EACH TAB PO STA (00:11)
== END 2016-12-25 00:42 | disposition home or self-care (01) ==
LOC: EC 21:53
DX: L02.412 Cutaneous abscess of left axilla (principal); Z85.41 Personal history of malignant neoplasm of cervix uteri; Z86.14 Personal history of Methicillin resistant Staphylococcus aureus infection; Z87.891 Personal history of nicotine dependence; Z79.899 Other long term (current) drug therapy
CPT/HCPCS: 10060; 87070; 87077; 87186; 87205; 99283

== ENCOUNTER 2017-01-26 08:38 | Emergency (ER) | payer OTHER ==
[2017-01-26] MEDS ORDERED: SODIUM CHLORIDE 0.9% 1,000 ML IV STA (09:01)
--- NOTE | 2017-01-26 09:03 | ED ---
General Adult HPI - General Chief complaint: Shortness of Breath Stated complaint: Diff Breathing Time Seen by Provider: 01/26/17 08:50 Source: patient, RN notes reviewed Mode of arrival: ambulatory Limitations: no limitations - History of Present Illness Initial comments: Patient 31-year-old female significant past medical history for anxiety, who presents emergency room today with a chief complaint of feeling short of breath , lightheaded and dizzy after waking up this morning. She does admit that she got up this morning felt okay was going to let her dog began feeling like she could not take a deep breath. She states she's had some anxiety similar to this in the past. She states "was different is that she began feeling nauseated and then the lightheaded. She states she's never had that in the past. She states that the lightheadedness and nausea has improved some at this time still feels like she cannot take a deep breath. She denies any pain. She does admit that she felt like her heart was racing earlier. Denies any other complaints at this time. Admits to a history of cervical cancer back in 2009. Patient denies any recent fever, chills, chest pain, back pain, abdominal pain, vomiting, numbness or tingling, dysuria or hematuria, constipation or diarrhea, headaches or visual changes, or any other complaints. - Related Data Home Medications Medication Instructions Recorded Confirmed Multivitamins, Thera [Multivitamin 1 tab PO DAILY 12/24/16 01/26/17 (formulary)] Mupirocin 2% Nasal Oint [Bactroban 1 applic NASAL HS PRN 12/24/16 01/26/17 2% Nasal Oint] Allergies Allergy/AdvReac Type Severity Reaction Status Date / Time No Known Allergies Allergy Verified 01/26/17 09:15 Review of Systems ROS Statement: Those systems with pertinent positive or pertinent negative responses have been documented in the HPI. ROS Other: All systems not noted in ROS Statement are negative. Past Medical History Past Medical History: Cancer, Hypertension Additional Past Medical History / Comment(s): states "intermittent abdominal pain and left side of colon being collapsed on CT scan, also stated stable pulmonary nodules on ct scan",Hx stress related hypertension - currently resolved. Hx kidney stones, cervical cancer. History of Any Multi-Drug Resistant Organisms: MRSA Date of last positivie culture/infection: 12/25/16 MDRO Source:: Left arm axilla Past Surgical History: Section, Cholecystectomy, Hernia Repair, Hysterectomy, Orthopedic Surgery Additional Past Surgical History / Comment(s): Has plate and 6 screws in left ankle-hardware removed lt ankle August 2016,hernia repairs x 4,c sect x3 Past Anesthesia/Blood Transfusion Reactions: Family History of Problems w/ Anesthesia, Postoperative Nausea & Vomiting (PONV) Additional Past Anesthesia/Blood Transfusion Reaction / Comment(s): mother has PONV,no hx blood transfusion Past Psychological History: Anxiety Smoking Status: Former smoker Past Alcohol Use History: Occasional Past Drug Use History: None Reported - Past Family History Mother Family Medical History: Cancer, Hypertension Additional Family Medical History / Comment(s): Breast Cancer,fadia mastectomy Father Family Medical History: Asthma, Diabetes Mellitus, Hypertension, Rheumatoid Arthritis (RA) General Exam Limitations: no limitations Course Vital Signs 01/26/17 01/26/17 01/26/17 08:41 08:44 09:43 Temperature 98.3 F 98.6 F Pulse Rate 80 69 Respiratory 18 16 Rate Blood Pressure 168/100 139/68 120/76 O2 Sat by Pulse 100 98 Oximetry 01/26/17 10:11 Temperature Pulse Rate Respiratory 20 Rate Blood Pressure O2 Sat by Pulse Oximetry EKG Findings - EKG Comments: EKG Findings:: EKG performed at 0911: A 12-lead EKG was performed and interpreted by me as showing the following: Rate is 72, and rhythm is normal sinus. There are normal QRS complexes and normal R-wave progression. ST segments have no elevation or depression, and CA segments appear normal. Medical Decision Making - Medical Decision Making Case discussed in detail with attending physician Dr. Wong. Patient examined here in the emergency room shows no signs of distress resting comfortably in the stretcher. Denies any nausea or lightheadedness after fluid bolus. Patient denies any chest pain discomfort or shortness breath at this time states she is feeling fine. She does admit that she's had similar symptoms before with her anxiety. Does not take any medications at home. Patient's vital stable. Pulse ox 100% on room air pulse was 80 at triage and 72 on EKG. EKG shows normal sinus rhythm. Patient has no clinical signs symptoms DVT. Denies any previous recent surgery or immobilization or injury. Has no previous history of DVT or PE. No history of hemoptysis. No history of malignancy within the last 6 months. Patient low probability for any PE. Patient will be discharged home she is asymptomatic at this time. Follow-up family doctor over the next 2 days. - Lab Data Result diagrams: 01/26/17 09:20 01/26/17 09:20 Lab Results 01/26/17 01/26/17 01/26/17 Range/Units 09:20 09:20 09:20 WBC 6.6 (3.8-10.6) k/uL RBC 4.21 (3.80-5.40) m/uL Hgb 13.4 (11.4-16.0) gm/dL Hct 38.9 (34.0-46.0) % MCV 92.4 (80.0-100.0) fL MCH 31.9 (25.0-35.0) pg MCHC 34.5 (31.0-37.0) g/dL RDW 13.0 (11.5-15.5) % Plt Count 188 (150-450) k/uL Neutrophils % 69 % Lymphocytes % 23 % Monocytes % 5 % Eosinophils % 1 % Basophils % 0 % Neutrophils # 4.5 (1.3-7.7) k/uL Lymphocytes # 1.6 (1.0-4.8) k/uL Monocytes # 0.3 (0-1.0) k/uL Eosinophils # 0.1 (0-0.7) k/uL Basophils # 0.0 (0-0.2) k/uL Sodium 143 (137-145) mmol/L Potassium 3.8 (3.5-5.1) mmol/L Chloride 106 (98-107) mmol/L Carbon Dioxide 27 (22-30) mmol/L Anion Gap 10 mmol/L BUN 12 (7-17) mg/dL Creatinine 0.80 (0.52-1.04) mg/dL Est GFR (MDRD) Af Amer >60 (>60 ml/min/1.73 sqM) Est GFR (MDRD) Non-Af >60 (>60 ml/min/1.73 sqM) Glucose 85 (74-99) mg/dL Calcium 9.3 (8.4-10.2) mg/dL Total Bilirubin 0.7 (0.2-1.3) mg/dL AST 21 (14-36) U/L ALT 35 (9-52) U/L Alkaline Phosphatase 70 (38-126) U/L Total Creatine Kinase 59 (30-135) U/L CK-MB (CK-2) 0.2 (0.0-2.4) ng/mL CK-MB (CK-2) Rel Index 0.3 Troponin I <0.012 (0.000-0.034) ng/mL Total Protein 7.2 (6.3-8.2) g/dL Albumin 4.2 (3.5-5.0) g/dL Disposition Clinical Impression: Lightheaded Disposition: HOME SELF-CARE Condition: Good Instructions: Lightheadedness (ED) Additional Instructions: Please use medication as discussed. Please follow-up with family doctor in the next 2 days. Please return to emergency room if the symptoms increase or worsen or for any other concerns. Referrals: Amparo Felder MD [Primary Care Provider] - 1-2 days Time of Disposition: 10:47
--- NOTE | 2017-01-26 09:44 | XR ---
EXAMINATION TYPE: XR chest 2V DATE OF EXAM: 01/26/2017 COMPARISON: Prior chest x-ray 11/26/2016 HISTORY: Shortness of breath TECHNIQUE: Frontal and lateral views of the chest are obtained. FINDINGS: There is no focal air space opacity, pleural effusion, or pneumothorax seen. The cardiac silhouette size is within normal limits. The osseous structures are intact. IMPRESSION: No acute cardiopulmonary process.
[2017-01-26 09:47] LABS: Basophils % (A) 0 %; CH 32.3; CHCM 35.1; Eosinophils # (A) 0.1 k/uL (0-0.7); Eosinophils % (A) 1 %; HCT 38.9 % (34.0-46.0); HDW 2.59; HGB 13.4 gm/dL (11.4-16.0); Luc # (Auto) 0.09; Luc % (Auto) 1; Lymphocytes # (A) 1.6 k/uL (1.0-4.8); Lymphocytes % (A) 23 %; MCH 31.9 pg (25.0-35.0); MCHC 34.5 g/dL (31.0-37.0); MCV 92.4 fL (80.0-100.0); Mean Platelet Volume 8.3; Monocytes # (A) 0.3 k/uL (0-1.0); Monocytes % (A) 5 %; Neutrophils # (A) 4.5 k/uL (1.3-7.7); Neutrophils % (A) 69 %; RBC 4.21 m/uL (3.80-5.40); WBC 6.6 k/uL (3.8-10.6); WBC (Perox) 6.08
[2017-01-26 09:52] LABS: ALT 35 U/L (9-52); AST 21 U/L (14-36); Alkaline Phosphatase 70 U/L (38-126); Anion Gap 10 mmol/L; Blood Urea Nitrogen 12 mg/dL (7-17); Calcium 9.3 mg/dL (8.4-10.2); Carbon Dioxide 27 mmol/L (22-30); Chloride 106 mmol/L (98-107); Glucose 85 mg/dL (74-99); Non-African American GFR(MDRD) >60 (>60 ml/min/1.73 sqM); Potassium 3.8 mmol/L (3.5-5.1); Sodium 143 mmol/L (137-145); Total Bilirubin 0.7 mg/dL (0.2-1.3); Total Protein 7.2 g/dL (6.3-8.2)
[2017-01-26 10:10] LABS: Creatine Kinase 59 U/L (30-135)
[2017-01-26 10:22] LABS: Creatine Kinase MB 0.2 ng/mL (0.0-2.4); Troponin I <0.012 ng/mL (0.000-0.034)
[2017-01-26 10:58] VITALS: BP 111/58; PULSE 60; RESP 16; TEMP 98
== END 2017-01-26 11:00 | disposition home or self-care (01) ==
LOC: EC 08:38
DX: R42 Dizziness and giddiness (principal); R06.02 Shortness of breath; Z85.41 Personal history of malignant neoplasm of cervix uteri; Z87.891 Personal history of nicotine dependence; Z79.899 Other long term (current) drug therapy
CPT/HCPCS: 36415; 71020; 80053; 82550; 82553; 84484; 85025; 93005; 96360; 99285

== ENCOUNTER → 2017-03-30 | Outpatient (CLI) | payer OTHER ==
--- NOTE | 2017-03-30 15:57 | US ---
EXAMINATION TYPE: US abdomen complete DATE OF EXAM: 03/30/2017 COMPARISON: NONE CLINICAL HISTORY: R10.84 Generlized Pain. Burning sensation RLQ, cholecystectomy, abdominal pain EXAM MEASUREMENTS: Liver Length: 14.8 cm Gallbladder Wall: Surgically absent CBD: 0.4 cm Spleen: 11.9 cm Right Kidney: 10.3 x 3.8 x 4.8 cm Left Kidney: 10.3 x 5.0 x 5.4 cm Pancreas: limited evaluation due to overlying bowel content Liver: appears wnl Gallbladder: Surgically absent Evidence for sonographic Guo's sign: no CBD: appears wnl Spleen: wnl Right Kidney: no evidence of hydronephrosis or nephrolithiasis Left Kidney: no evidence of hydronephrosis or nephrolithiasis Upper IVC: wnl Abd Aorta: wnl IMPRESSION: 1. Postcholecystectomy changes.
== END | disposition home or self-care (01) ==
LOC: RADUSWWP 14:55
PROVIDERS: ATTEND Internal Medicine
DX: R10.84 Generalized abdominal pain (principal); Z90.49 Acquired absence of other specified parts of digestive tract
CPT/HCPCS: 76700

== ENCOUNTER 2017-05-12 16:36 | Emergency (ER) | payer OTHER ==
[2017-05-12 16:41] VITALS: RESP 18; TEMP 98.9
[2017-05-12] MEDS ORDERED: SODIUM CHLORIDE 0.9% 500 ML IV STA (17:16)
[2017-05-12] MEDS ORDERED: KETOROLAC 30 MG/ML 1 ML VIAL IVP STA (17:16)
[2017-05-12] MEDS ORDERED: SODIUM CHLORIDE 0.9% 1,000 ML IV STA (17:16)
[2017-05-12] MEDS ORDERED: LORazepam 1 MG TAB PO STA (17:16)
--- NOTE | 2017-05-12 17:28 | ED ---
General Adult HPI - General Chief complaint: Shortness of Breath Stated complaint: SOB Time Seen by Provider: 05/12/17 17:15 Source: patient, RN notes reviewed, old records reviewed Mode of arrival: ambulatory Limitations: no limitations - History of Present Illness Initial comments: She is a 31-year-old female presents to the emergency Department chief complaint of chest palpitations and shortness of breath, she did she was having an anxiety attack. She reports that it started this morning. She reports she' s been under a lot of stress, her mother was recently diagnosed with metastatic breast cancer. Patient reports that she's had no fever or chills, denies any cough. She reports that at 4:00 she felt like she needed to take an Ativan. She reports she took the Ativan but her symptoms continue to persist. She reports that occasionally she'll have these episodes of chest palpitations, and feels a tightness in her chest but then it slowly resolves. She is here with HER-2 daughters. She denies any other complaints including abdominal pain, or nausea or vomiting or changes in bowel habits. Denies any urinary symptoms. - Related Data Home Medications Medication Instructions Recorded Confirmed LORazepam [Ativan] 0.5 mg PO DAILY PRN 05/12/17 05/12/17 Multivitamins, Thera [Multivitamin 1 tab PO DAILY 05/12/17 05/12/17 (formulary)] Allergies Allergy/AdvReac Type Severity Reaction Status Date / Time No Known Allergies Allergy Verified 05/12/17 17:12 Review of Systems ROS Statement: Those systems with pertinent positive or pertinent negative responses have been documented in the HPI. ROS Other: All systems not noted in ROS Statement are negative. Past Medical History Past Medical History: Cancer, Hypertension Additional Past Medical History / Comment(s): states "intermittent abdominal pain and left side of colon being collapsed on CT scan, also stated stable pulmonary nodules on ct scan",Hx stress related hypertension - currently resolved. Hx kidney stones, cervical cancer. History of Any Multi-Drug Resistant Organisms: MRSA Date of last positivie culture/infection: 12/25/16 MDRO Source:: Left arm axilla Past Surgical History: Section, Cholecystectomy, Hernia Repair, Hysterectomy, Orthopedic Surgery Additional Past Surgical History / Comment(s): Has plate and 6 screws in left ankle-hardware removed lt ankle August 2016,hernia repairs x 4,c sect x3 Past Anesthesia/Blood Transfusion Reactions: Family History of Problems w/ Anesthesia, Postoperative Nausea & Vomiting (PONV) Additional Past Anesthesia/Blood Transfusion Reaction / Comment(s): mother has PONV,no hx blood transfusion Past Psychological History: Anxiety Smoking Status: Former smoker Past Alcohol Use History: None Reported Past Drug Use History: None Reported - Past Family History Mother Family Medical History: Cancer, Hypertension Additional Family Medical History / Comment(s): Breast Cancer,fadia mastectomy Father Family Medical History: Asthma, Diabetes Mellitus, Hypertension, Rheumatoid Arthritis (RA) General Exam - General Exam Comments Initial Comments: Well-appearing 31-year-old female. Patient does not appear to be in any acute distress. Limitations: no limitations General appearance: alert, in no apparent distress Head exam: Present: atraumatic, normocephalic, normal inspection Eye exam: Present: normal appearance, PERRL, EOMI. Absent: scleral icterus, conjunctival injection, periorbital swelling ENT exam: Present: normal exam, mucous membranes moist Neck exam: Present: normal inspection. Absent: tenderness, meningismus, lymphadenopathy Respiratory exam: Present: normal lung sounds bilaterally. Absent: respiratory distress, wheezes, rales, rhonchi, stridor Cardiovascular Exam: Present: regular rate, normal rhythm, normal heart sounds. Absent: systolic murmur, diastolic murmur, rubs, gallop, clicks GI/Abdominal exam: Present: soft, normal bowel sounds. Absent: distended, tenderness, guarding, rebound, rigid Extremities exam: Present: normal inspection, full ROM, normal capillary refill. Absent: tenderness, pedal edema, joint swelling, calf tenderness Back exam: Present: normal inspection Neurological exam: Present: alert, oriented X3, CN II-XII intact Psychiatric exam: Present: normal affect, anxious (Patient reports that she has somewhat anxious about multiple life stressors including taking care of her children, and mother's recent sinus of metastatic breast cancer.). Absent: normal mood Skin exam: Present: warm, dry, intact, normal color. Absent: rash Course Vital Signs 05/12/17 05/12/17 05/12/17 16:39 18:22 18:39 Temperature 98.9 F Pulse Rate 91 82 Respiratory 18 18 18 Rate Blood Pressure 159/90 121/80 O2 Sat by Pulse 100 99 Oximetry Medical Decision Making - Medical Decision Making 31-year-old to complain of shortness of breath, anxiety attack. Clinically patient has no that he returns breath pulse ox on room air. Vital signs are all stable. No fever. Chest x-ray was reviewed and negative for any acute process. Negative troponin, EKG was normal. No signs of DVT, no concern for PE. It appears the patient's symptoms seem to related to a panic attack and anxiety. Patient was given 0.5 mg of Ativan emergency department. Discussed that all of her lab work was reviewed to be normal. Discussion is follow-up with her primary care provider as well as counseling services in regards to multiple stressors in her life. Patient agrees treatment plan will comply. Return parameters were discussed. - Lab Data Result diagrams: 05/12/17 17:50 05/12/17 17:50 Lab Results 05/12/17 05/12/17 05/12/17 Range/Units 17:50 17:50 17:50 WBC 10.0 (3.8-10.6) k/uL RBC 4.37 (3.80-5.40) m/uL Hgb 13.8 (11.4-16.0) gm/dL Hct 41.3 (34.0-46.0) % MCV 94.5 (80.0-100.0) fL MCH 31.5 (25.0-35.0) pg MCHC 33.3 (31.0-37.0) g/dL RDW 12.4 (11.5-15.5) % Plt Count 238 (150-450) k/uL Neutrophils % 64 % Lymphocytes % 27 % Monocytes % 6 % Eosinophils % 2 % Basophils % 1 % Neutrophils # 6.4 (1.3-7.7) k/uL Lymphocytes # 2.7 (1.0-4.8) k/uL Monocytes # 0.6 (0-1.0) k/uL Eosinophils # 0.2 (0-0.7) k/uL Basophils # 0.1 (0-0.2) k/uL PT (9.0-12.0) sec INR (<1.2) APTT (22.0-30.0) sec Sodium 141 (137-145) mmol/L Potassium 4.0 (3.5-5.1) mmol/L Chloride 105 (98-107) mmol/L Carbon Dioxide 26 (22-30) mmol/L Anion Gap 10 mmol/L BUN 10 (7-17) mg/dL Creatinine 0.81 (0.52-1.04) mg/dL Est GFR (MDRD) Af Amer >60 (>60 ml/min/1.73 sqM) Est GFR (MDRD) Non-Af >60 (>60 ml/min/1.73 sqM) Glucose 94 (74-99) mg/dL Calcium 9.8 (8.4-10.2) mg/dL Magnesium 2.0 (1.6-2.3) mg/dL Total Bilirubin 0.3 (0.2-1.3) mg/dL AST 20 (14-36) U/L ALT 34 (9-52) U/L Alkaline Phosphatase 77 (38-126) U/L Total Creatine Kinase 26 L (30-135) U/L CK-MB (CK-2) <0.2 (0.0-2.4) ng/mL CK-MB (CK-2) Rel Index Troponin I <0.012 (0.000-0.034) ng/mL Total Protein 8.0 (6.3-8.2) g/dL Albumin 4.4 (3.5-5.0) g/dL Urine HCG, Qual (Not Detectd) 05/12/17 05/12/17 Range/Units 17:50 17:58 WBC (3.8-10.6) k/uL RBC (3.80-5.40) m/uL Hgb (11.4-16.0) gm/dL Hct (34.0-46.0) % MCV (80.0-100.0) fL MCH (25.0-35.0) pg MCHC (31.0-37.0) g/dL RDW (11.5-15.5) % Plt Count (150-450) k/uL Neutrophils % % Lymphocytes % % Monocytes % % Eosinophils % % Basophils % % Neutrophils # (1.3-7.7) k/uL Lymphocytes # (1.0-4.8) k/uL Monocytes # (0-1.0) k/uL Eosinophils # (0-0.7) k/uL Basophils # (0-0.2) k/uL PT 10.0 (9.0-12.0) sec INR 1.0 (<1.2) APTT 23.8 (22.0-30.0) sec Sodium (137-145) mmol/L Potassium (3.5-5.1) mmol/L Chloride (98-107) mmol/L Carbon Dioxide (22-30) mmol/L Anion Gap mmol/L BUN (7-17) mg/dL Creatinine (0.52-1.04) mg/dL Est GFR (MDRD) Af Amer (>60 ml/min/1.73 sqM) Est GFR (MDRD) Non-Af (>60 ml/min/1.73 sqM) Glucose (74-99) mg/dL Calcium (8.4-10.2) mg/dL Magnesium (1.6-2.3) mg/dL Total Bilirubin (0.2-1.3) mg/dL AST (14-36) U/L ALT (9-52) U/L Alkaline Phosphatase (38-126) U/L Total Creatine Kinase (30-135) U/L CK-MB (CK-2) (0.0-2.4) ng/mL CK-MB (CK-2) Rel Index Troponin I (0.000-0.034) ng/mL Total Protein (6.3-8.2) g/dL Albumin (3.5-5.0) g/dL Urine HCG, Qual Not Detected (Not Detectd) 05/12/17 17:55 EKG shows normal sinus rhythm. Ventricular rate 97 bpm. SC interval 154 ms. QRS duration 92 Ms seconds. QT QTc is 36/452 ms. No evidence of ST elevation or T-wave inversions. No evidence of atrial or ventricular arrhythmias. - Radiology Data Radiology results: report reviewed No acute process, no significant changes from prior. Disposition Clinical Impression: Anxiety Disposition: HOME SELF-CARE Condition: Good Instructions: Anxiety (ED) Additional Instructions: Patient advised to rest, follow-up with primary care provider. Return to emergency department if any alarming signs or symptoms occur. Referrals: Amparo Felder MD [Primary Care Provider] - 1-2 days Time of Disposition: 19:24
[2017-05-12 18:02] LABS: Basophils # (A) 0.1 k/uL (0-0.2); Basophils % (A) 1 %; CH 32.2; CHCM 34.2; Eosinophils # (A) 0.2 k/uL (0-0.7); Eosinophils % (A) 2 %; HCT 41.3 % (34.0-46.0); HDW 2.54; HGB 13.8 gm/dL (11.4-16.0); Luc # (Auto) 0.19; Luc % (Auto) 2; Lymphocytes # (A) 2.7 k/uL (1.0-4.8); Lymphocytes % (A) 27 %; MCH 31.5 pg (25.0-35.0); MCHC 33.3 g/dL (31.0-37.0); MCV 94.5 fL (80.0-100.0); Mean Platelet Volume 7.5; Monocytes # (A) 0.6 k/uL (0-1.0); Monocytes % (A) 6 %; Neutrophils # (A) 6.4 k/uL (1.3-7.7); Neutrophils % (A) 64 %; RBC 4.37 m/uL (3.80-5.40); RDW 12.4 % (11.5-15.5); WBC (Perox) 10.21
[2017-05-12 18:13] LABS: ALT 34 U/L (9-52); AST 20 U/L (14-36); Alkaline Phosphatase 77 U/L (38-126); Anion Gap 10 mmol/L; Blood Urea Nitrogen 10 mg/dL (7-17); Calcium 9.8 mg/dL (8.4-10.2); Carbon Dioxide 26 mmol/L (22-30); Chloride 105 mmol/L (98-107); Glucose 94 mg/dL (74-99); Non-African American GFR(MDRD) >60 (>60 ml/min/1.73 sqM); Sodium 141 mmol/L (137-145); Total Bilirubin 0.3 mg/dL (0.2-1.3)
[2017-05-12 18:22] LABS: Creatine Kinase 26 U/L (30-135)
[2017-05-12 18:24] LABS: Partial Thromboplastin Time 23.8 sec (22.0-30.0)
[2017-05-12 18:34] LABS: Creatine Kinase MB <0.2 ng/mL (0.0-2.4); Troponin I <0.012 ng/mL (0.000-0.034)
[2017-05-12 18:39] VITALS: BP 121/80; PULSE 82
--- NOTE | 2017-05-12 18:43 | XR ---
EXAMINATION TYPE: XR chest 2V DATE OF EXAM: 05/12/2017 COMPARISON: Prior chest x-ray January 26, 2017 HISTORY: Chest pain. TECHNIQUE: Frontal and lateral views of the chest are obtained. FINDINGS: There is no focal air space opacity, pleural effusion, or pneumothorax seen. The cardiac silhouette size is within normal limits. The osseous structures are intact. Multiple cholecystectom y clips are noted on lateral view. IMPRESSION: No acute process. No significant change from prior.
== END 2017-05-12 19:43 | disposition home or self-care (01) ==
LOC: EC 16:36
DX: F41.9 Anxiety disorder, unspecified (principal); R00.2 Palpitations; Z79.899 Other long term (current) drug therapy; Z87.891 Personal history of nicotine dependence
CPT/HCPCS: 99285; 96374; 96361 ×2; 36415; 93005; 80053; 82550; 82553; 83735; 84484; 85025; 85610; 85730; 81025; 71020; J1885

== ENCOUNTER 2017-07-30 23:57 | Emergency (ER) | payer OTHER ==
[2017-07-31 00:59] VITALS: RESP 18
[2017-07-31] MEDS ORDERED: SODIUM CHLORIDE 0.9% 1,000 ML IV STA (01:20)
[2017-07-31] MEDS ORDERED: MAG HYDROX/AL HYDROX/SIMETH 30 ML, HYOSCYAMINE ELIXIR 10 ML, CIMETIDINE HCL 300 MG PO STA ×3 (01:21)
--- NOTE | 2017-07-31 01:26 | ED ---
Chest Pain HPI - General Chief Complaint: Chest Pain Stated Complaint: Chest Tightness Time Seen by Provider: 07/31/17 01:10 Source: patient, RN notes reviewed Mode of arrival: ambulatory Limitations: no limitations - History of Present Illness Initial Comments: This is a 31-year-old female with a history of cholecystectomy in the past who states she took some Pepcid around 9 PM this past evening and woke up around 2 hours later with indigestion-like pain. She states that this was associated with some nausea vomiting. The pain was 7/10 severity is intermittent. She does states she has no known history of heart or lung disease she is a nonsmoker. There is a remote family history of her grandmother with heart disease. She feels as if she has a sensation going up and down her chest at times. MD Complaint: chest pain, other - Related Data Home Medications Medication Instructions Recorded Confirmed LORazepam [Ativan] 0.5 mg PO DAILY PRN 05/12/17 05/12/17 Multivitamins, Thera [Multivitamin 1 tab PO DAILY 05/12/17 05/12/17 (formulary)] Previous Rx's Medication Instructions Recorded Ibuprofen [Motrin] 600 mg PO Q6HR PRN #20 tab 07/31/17 Pantoprazole Sodium [Protonix] 20 mg PO AC-BID #20 tablet. 07/31/17 Allergies Allergy/AdvReac Type Severity Reaction Status Date / Time No Known Allergies Allergy Verified 07/21/17 18:09 Review of Systems ROS Statement: Those systems with pertinent positive or pertinent negative responses have been documented in the HPI. ROS Other: All systems not noted in ROS Statement are negative. EKG Findings - EKG Results: EKG: interpreted by PJ, sinus rhythm (Normal sinus rhythm rate 81. Interval 168 QRS duration 96 QT since QTC 392/455 this is a normal-appearing EKG.) Past Medical History Past Medical History: Cancer, Hypertension Additional Past Medical History / Comment(s): states "intermittent abdominal pain and left side of colon being collapsed on CT scan, also stated stable pulmonary nodules on ct scan",Hx stress related hypertension - currently resolved. Hx kidney stones, cervical cancer. History of Any Multi-Drug Resistant Organisms: MRSA Date of last positivie culture/infection: 12/25/16 MDRO Source:: Left arm axilla Past Surgical History: Section, Cholecystectomy, Hernia Repair, Hysterectomy, Orthopedic Surgery Additional Past Surgical History / Comment(s): Has plate and 6 screws in left ankle-hardware removed lt ankle August 2016,hernia repairs x 4,c sect x3 Past Anesthesia/Blood Transfusion Reactions: Family History of Problems w/ Anesthesia, Postoperative Nausea & Vomiting (PONV) Additional Past Anesthesia/Blood Transfusion Reaction / Comment(s): mother has PONV,no hx blood transfusion Past Psychological History: Anxiety Smoking Status: Former smoker Past Alcohol Use History: Occasional Past Drug Use History: None Reported - Past Family History Mother Family Medical History: Cancer, Hypertension Additional Family Medical History / Comment(s): Breast Cancer,fadia mastectomy Father Family Medical History: Asthma, Diabetes Mellitus, Hypertension, Rheumatoid Arthritis (RA) General Exam - General Exam Comments Initial Comments: This is a well-developed well-nourished awake alert oriented 3 female Limitations: no limitations General appearance: alert, in no apparent distress Head exam: Present: atraumatic, normocephalic, normal inspection Eye exam: Present: normal appearance, PERRL, EOMI. Absent: scleral icterus, conjunctival injection, periorbital swelling ENT exam: Present: normal exam, mucous membranes moist Neck exam: Present: normal inspection. Absent: tenderness, meningismus, lymphadenopathy Respiratory exam: Present: normal lung sounds bilaterally. Absent: respiratory distress, wheezes, rales, rhonchi, stridor Cardiovascular Exam: Present: regular rate, normal rhythm, normal heart sounds. Absent: systolic murmur, diastolic murmur, rubs, gallop, clicks GI/Abdominal exam: Present: soft, normal bowel sounds. Absent: distended, tenderness, guarding, rebound, rigid Extremities exam: Present: normal inspection, full ROM, normal capillary refill. Absent: tenderness, pedal edema, joint swelling, calf tenderness Back exam: Present: normal inspection, tenderness (Mild paraspinous tenderness over the mid to lower thoracic spine no spinous process tenderness no step-off or crepitation no bruising) Neurological exam: Present: alert, oriented X3, CN II-XII intact Psychiatric exam: Present: normal affect, normal mood Skin exam: Present: warm, dry, intact, normal color. Absent: rash Course Vital Signs 07/31/17 07/31/17 00:53 02:22 Temperature 97.7 F 97.8 F Pulse Rate 87 82 Respiratory 18 18 Rate Blood Pressure 146/93 138/93 O2 Sat by Pulse 99 97 Oximetry Chest Pain MDM - MDM I did review the imaging and reports no acute findings. Patient is feeling much improved after the IV Toradol. Patient will be discharged home. Patient' s presentation is likely secondary to costochondritis though reflux, be ruled out at this time. Patient will be placed on appropriate medication she is a follow-up with her doctor and return when necessary Disposition Clinical Impression: Chest wall syndrome, Costalchondritis Disposition: HOME SELF-CARE Instructions: Costochondritis (ED) Prescriptions: Ibuprofen [Motrin] 600 mg PO Q6HR PRN #20 tab PRN Reason: Pain Pantoprazole Sodium [Protonix] 20 mg PO AC-BID #20 tablet.dr Referrals: Amparo Felder MD [Primary Care Provider] - 1-2 days
--- NOTE | 2017-07-31 01:53 | XR ---
EXAMINATION TYPE: XR chest 2V DATE OF EXAM: 07/31/2017 COMPARISON: 05/12/2017 HISTORY: Chest pain TECHNIQUE: Frontal and lateral views of the chest are obtained. FINDINGS: Heart and mediastinum are normal. Lungs are clear. Diaphragm is normal. Bony thorax appear s normal. IMPRESSION: Normal chest. No change.
[2017-07-31 01:59] LABS: Basophils % (A) 1 %; Eosinophils # (A) 0.1 k/uL (0-0.7); Eosinophils % (A) 1 %; HGB 12.5 gm/dL (11.4-16.0); Lymphocytes # (A) 2.1 k/uL (1.0-4.8); Lymphocytes % (A) 29 %; MCH 31.8 pg (25.0-35.0); MCHC 33.8 g/dL (31.0-37.0); MCV 94.1 fL (80.0-100.0); Mean Platelet Volume 8.3; Monocytes # (A) 0.4 k/uL (0-1.0); Monocytes % (A) 6 %; Neutrophils # (A) 4.6 k/uL (1.3-7.7); Neutrophils % (A) 62 %; Platelet Count 177 k/uL (150-450); RBC 3.93 m/uL (3.80-5.40); RDW 13.5 % (11.5-15.5); WBC 7.4 k/uL (3.8-10.6)
[2017-07-31 02:08] LABS: ALT 22 U/L (9-52); AST 22 U/L (14-36); Albumin 3.9 g/dL (3.5-5.0); Alkaline Phosphatase 62 U/L (38-126); Amylase 49 U/L (30-110); Anion Gap 10 mmol/L; Blood Urea Nitrogen 17 mg/dL (7-17); Calcium 9.1 mg/dL (8.4-10.2); Carbon Dioxide 26 mmol/L (22-30); Chloride 106 mmol/L (98-107); Glucose 98 mg/dL (74-99); Lipase 81 U/L (23-300); Magnesium 1.9 mg/dL (1.6-2.3); Potassium 3.7 mmol/L (3.5-5.1); Sodium 142 mmol/L (137-145); Total Bilirubin 0.2 mg/dL (0.2-1.3); Total Protein 6.5 g/dL (6.3-8.2)
[2017-07-31 02:14] LABS: D-Dimer 0.69 mg/L FEU (<0.60)
[2017-07-31 02:19] LABS: Creatine Kinase 43 U/L (30-135)
[2017-07-31] MEDS ORDERED: KETOROLAC 30 MG/ML 1 ML VIAL IVP STA (02:20)
[2017-07-31 02:24] VITALS: BP 138/93; PULSE 82; TEMP 97.8
[2017-07-31 02:32] LABS: Creatine Kinase MB 0.2 ng/mL (0.0-2.4); Troponin I <0.012 ng/mL (0.000-0.034)
[2017-07-31] MEDS ORDERED: RX INFO: IV CONTRAST WAS GIVEN 1 EACH MISC MISCELLANE PRN (02:35)
--- NOTE | 2017-07-31 03:12 | CT ---
EXAM: CT Angiography Chest With Intravenous Contrast CLINICAL HISTORY: Reason: Pain TECHNIQUE: Axial computed tomographic angiography images of the chest with intravenous contrast using pulmonary embolism protocol. CTDI is 38 mGy and DLP is 277.7 mGy-cm. This CT exam was performed using one or more of the following dose reduction techniques: automated exposure control, adjustment of the mA and/or kV according to patient size, and/or use of iterative reconstruction technique. MIP reconstructed images were created and reviewed. COMPARISON: No relevant prior studies available. FINDINGS: Pulmonary arteries: Unremarkable. No pulmonary embolism. Aorta: No acute findings. No thoracic aortic aneurysm. Lungs: Unremarkable. No mass. No consolidation. Pleural space: Unremarkable. No significant effusion. No pneumothorax. Heart: Unremarkable. No cardiomegaly. No significant pericardial effusion. No evidence of RV dysfunction. Bones/joints: No acute fracture. No dislocation. Soft tissues: Unremarkable. Lymph nodes: Unremarkable. No enlarged lymph nodes. Gallbladder and bile ducts: Prior cholecystectomy. IMPRESSION: No evidence of pulmonary embolus. Lungs are clear.
== END 2017-07-31 04:02 | disposition home or self-care (01) ==
LOC: EC 23:57
DX: M94.0 Chondrocostal junction syndrome [Tietze] (principal); R11.2 Nausea with vomiting, unspecified; Z87.891 Personal history of nicotine dependence; Z79.899 Other long term (current) drug therapy; Z85.41 Personal history of malignant neoplasm of cervix uteri; Z86.14 Personal history of Methicillin resistant Staphylococcus aureus infection; Z90.710 Acquired absence of both cervix and uterus; Z82.49 Family history of ischemic heart disease and other diseases of the circulatory system
CPT/HCPCS: 36415; 93005; 85379; 80053; 82150; 82550; 82553; 83690; 83735; 84484; 85025; 85610; 85730; 71046; 71275; 99285; 96374; 96361 ×2; Q9967; J1885

== ENCOUNTER 2017-08-25 08:30 | Day surgery (SDC) | payer OTHER ==
[2017-08-23 11:26] VITALS: BMI 22.1
[2017-08-25 09:07] VITALS: RESP 16; TEMP 97.4
[2017-08-25] MEDS ORDERED: LIDOCAINE 1% 20 ML VIAL (10MG/ML) FOR IV START INTRADERMA ONE (09:07)
--- NOTE | 2017-08-25 09:09 | P.GSHP ---
History of Present Illness H&P Date: 08/25/17 Chief Complaint: GERD This is a 32-year-old female who has had issues with GERD. Patient rents today for EGD. Past Medical History Past Medical History: Cancer, GERD/Reflux, Hypertension Additional Past Medical History / Comment(s): state stable pulmonary nodules on ct scan",Hx stress related hypertension. Hx kidney stones, Hx cervical cancer. History of Any Multi-Drug Resistant Organisms: MRSA Date of last positivie culture/infection: 12/25/16 MDRO Source:: Left arm axilla Past Surgical History: Section, Cholecystectomy, Hernia Repair, Hysterectomy, Orthopedic Surgery Additional Past Surgical History / Comment(s): Had plate and 6 screws in left ankle-hardware removed lt ankle August 2016,hernia repairs x 4,c sect x3 Past Anesthesia/Blood Transfusion Reactions: Family History of Problems w/ Anesthesia, Postoperative Nausea & Vomiting (PONV) Additional Past Anesthesia/Blood Transfusion Reaction / Comment(s): Also mother has PONV, no hx blood transfusion Smoking Status: Former smoker - Past Family History Mother Family Medical History: Cancer, Hypertension Additional Family Medical History / Comment(s): Breast Cancer,fadia mastectomy Father Family Medical History: Asthma, Diabetes Mellitus, Hypertension, Rheumatoid Arthritis (RA) Medications and Allergies Home Medications Medication Instructions Recorded Confirmed Type LORazepam [Ativan] 0.5 mg PO DAILY PRN 05/12/17 08/25/17 History Multivitamins, Thera [Multivitamin 1 tab PO DAILY 05/12/17 08/25/17 History (formulary)] Ibuprofen [Motrin] 600 mg PO Q6HR PRN #20 tab 07/31/17 08/25/17 Rx Pantoprazole Sodium [Protonix] 20 mg PO AC-BID PRN 08/23/17 08/25/17 History Allergies Allergy/AdvReac Type Severity Reaction Status Date / Time No Known Allergies Allergy Verified 08/25/17 09:03 Surgical - Exam Vital Signs Temp Pulse Resp BP Pulse Ox 97.4 F L 74 16 133/85 95 08/25/17 09:06 08/25/17 09:06 08/25/17 09:06 08/25/17 09:06 08/25/17 09:06 - General well developed, no distress - Eyes PERRL - ENT normal pinna - Neck no masses - Respiratory normal expansion - Cardiovascular Rhythm: regular - Abdomen Abdomen: soft, non tender Assessment and Plan Assessment: GERD. We'll perform EGD.
[2017-08-25] MEDS ORDERED: ONDANSETRON 4 MG/2 ML VIAL IVP ONE (09:12)
[2017-08-25] MEDS ORDERED: PROPOFOL 10 MG/ML 20 ML VIAL IV ONE (09:15)
[2017-08-25] MEDS ORDERED: LIDOCAINE 1% INJ 10MG/ML (20 ML MDV) ONE (09:15)
--- NOTE | 2017-08-25 09:26 | P.OP ---
Date of Procedure: 08/25/17 Preoperative Diagnosis: GERD Postoperative Diagnosis: Mild antral gastritis Small hiatal hernia Mild esophagitis Procedure(s) Performed: EGD Anesthesia: MAC Surgeon: Andrae Adorno Pathology: other (Antrum, esophagus) Condition: stable Disposition: PACU Description of Procedure: The patient's placed on the endoscopy table in the lateral position. She received IV sedation. The gastroscope placed oropharynx passed in the esophagus and stomach. Scope was then placed through the pylorus. The first and second portion of the duodenum appeared normal. Scope was then brought back the antrum this. Mildly inflamed. A biopsies performed. The scope was retroflexed and remainder of the stomach appeared normal. There was a small hiatal hernia. The GE junction was at 38 cm. The distal esophagus appeared mildly inflamed a biopsies performed. The proximal esophagus appeared normal. Scope was withdrawn for patient.
[2017-08-25 09:47] VITALS: BP 127/78; PULSE 64
== END 2017-08-25 10:22 | disposition home or self-care (01) ==
LOC: ORWHC2ENDO 08:30
PROVIDERS: ATTEND Surgery
DX: K29.50 Unspecified chronic gastritis without bleeding (principal); K21.0 Gastro-esophageal reflux disease with esophagitis; I10 Essential (primary) hypertension; K44.9 Diaphragmatic hernia without obstruction or gangrene; F41.9 Anxiety disorder, unspecified; Z85.41 Personal history of malignant neoplasm of cervix uteri; Z86.14 Personal history of Methicillin resistant Staphylococcus aureus infection; Z90.710 Acquired absence of both cervix and uterus; Z87.891 Personal history of nicotine dependence; Z82.49 Family history of ischemic heart disease and other diseases of the circulatory system; Z86.73 Personal history of transient ischemic attack (TIA), and cerebral infarction without residual deficits; Z79.1 Long term (current) use of non-steroidal anti-inflammatories (NSAID); Z79.899 Other long term (current) drug therapy; Z90.49 Acquired absence of other specified parts of digestive tract
CPT/HCPCS: 88305; 43239; J2405; J2001; J2704

== ENCOUNTER → 2017-08-26 | Outpatient (CLI) | payer OTHER ==
--- NOTE | 2017-08-26 10:13 | CT ---
EXAMINATION TYPE: CT abdomen pelvis w con DATE OF EXAM: 08/26/2017 COMPARISON: 10/02/2016 HISTORY: Ventral hernia CT DLP: 559.80 mGycm CONTRAST: CT scan of the abdomen and pelvis is performed with Oral Contrast and with IV Contrast, patient injec rafa with 100 ml mL of Omnipaque 300. FINDINGS: LUNG BASES-: Small subpleural nodule right lower lobe unchanged. No infiltrate. LIVER/GB: No calcified gallstones. Hepatic steatosis. Cholecystectomy clips. No space occupying hep atic lesion. Biliary tree is of normal caliber. PANCREAS: No inflammation. No distinct mass. SPLEEN: No splenic enlargement. No lesion seen. ADRENALS: No nodule. No thickening. KIDNEYS/BLADDER: No hydronephrosis. No nephrolithiasis. No distinct renal mass. Urinary bladder g rossly unremarkable. BOWEL: Normal appendix. Normal bowel caliber. No inflammation. GENITAL ORGANS: Hysterectomy changes noted. Small amount of free fluid within the cul-de-sac. LYMPH NODES: No greater than 1cm abdominal or pelvic lymph nodes are appreciated. AORTA: No significant abnormality. OSSEOUS STRUCTURES: No significant abnormality is seen. OTHER: No significant additional abnormality is seen. No hernia identified. IMPRESSION: 1. No visible anterior abdominal wall hernia. 2. Stable subpleural nodule right lower lobe. 3. Hepatic steatosis.
== END | disposition home or self-care (01) ==
LOC: RADCTMAIN 08:43
PROVIDERS: ATTEND Surgery
DX: K76.0 Fatty (change of) liver, not elsewhere classified (principal)
CPT/HCPCS: 74177; Q9967

== ENCOUNTER 2017-09-07 08:46 | Observation (INO) | payer OTHER ==
[~2017-09-07 08:46] MED LIST changes: +DEXAMETHASONE SOD PHOSPHATE 10 MG/ML 1 ML VIAL IV ONE; +HEPARIN SODIUM,PORCINE 5,000 UNIT/ML 1 ML VIAL SQ ONE; -LACTATED RINGERS 1,000 ML IV SCH; +LIDOCAINE 1% 20 ML VIAL (10MG/ML) FOR IV START INTRADERMA PRN; +MIDAZOLAM 2 MG/2 ML VIAL IV PRN; +MORPHINE SULFATE 4 MG/ML SYRINGE IV PRN; +ONDANSETRON 4 MG/2 ML VIAL IVP ONE; +SCOPOLAMINE 1.5MG/72HR PATCH TRANSDERM ONE; +ceFAZolin IN SWFI 2 GM/20 ML SYRINGE IVP ONE
[2017-09-07] MEDS: LACTATED RINGERS 1,000 ML IV SCH (09:41)
--- NOTE | 2017-09-07 10:40 | P.GSHP ---
History of Present Illness H&P Date: 09/07/17 Chief Complaint: GERD This is a 32-year-old female for from Dr. Felder. MThe patient has had long- standing problems with reflux esophagitis. The patient underwent recent EGD is found have evidence of esophagitis. Patient has been well informed on the procedure of laparoscopic Loren fundoplication. The patient is aware the risk of the conversion to the open procedure, risk of injury to the stomach, liver and spleen. The patient is also a risk of recurrent GERD and dysphagia symptoms. The patient understands there is a postoperative diet of full liquids for 2 weeks after surgery. Past Medical History Past Medical History: Cancer, GERD/Reflux, Hypertension, Osteoarthritis (OA) Additional Past Medical History / Comment(s): state stable pulmonary nodules on ct scan",Hx stress related hypertension. Hx kidney stones, Hx cervical cancer. History of Any Multi-Drug Resistant Organisms: None Reported, MRSA Date of last positivie culture/infection: 12/25/16 MDRO Source:: Left arm axilla Past Surgical History: Section, Cholecystectomy, Hernia Repair, Hysterectomy, Orthopedic Surgery, Tubal Ligation Additional Past Surgical History / Comment(s): Had plate and 6 screws in left ankle-hardware removed lt ankle August 2016,hernia repairs x 4 umbilical,c sect x3 Past Anesthesia/Blood Transfusion Reactions: Family History of Problems w/ Anesthesia, Postoperative Nausea & Vomiting (PONV) Additional Past Anesthesia/Blood Transfusion Reaction / Comment(s): Also mother has PONV, no hx blood transfusion Smoking Status: Former smoker - Past Family History Mother Family Medical History: Cancer, Hypertension Additional Family Medical History / Comment(s): Breast Cancer,fadia mastectomy Father Family Medical History: Asthma, Diabetes Mellitus, Hypertension, Rheumatoid Arthritis (RA) Medications and Allergies Home Medications Medication Instructions Recorded Confirmed Type LORazepam [Ativan] 0.5 mg PO DAILY PRN 05/12/17 09/07/17 History Multivitamins, Thera [Multivitamin 1 tab PO DAILY 05/12/17 09/07/17 History (formulary)] Pantoprazole Sodium [Protonix] 20 mg PO AC-BID PRN 08/23/17 09/07/17 History Ibuprofen [Motrin] 800 mg PO Q8H PRN 09/01/17 09/07/17 History Allergies Allergy/AdvReac Type Severity Reaction Status Date / Time No Known Allergies Allergy Verified 09/07/17 09:23 Surgical - Exam Vital Signs Temp Pulse Resp BP Pulse Ox 98.5 F 75 16 145/96 100 09/07/17 09:42 09/07/17 09:42 09/07/17 09:42 09/07/17 09:42 09/07/17 09:42 - General well developed, no distress - Eyes PERRL - ENT normal pinna - Neck no masses - Respiratory normal expansion - Cardiovascular Rhythm: regular - Abdomen Abdomen: soft, non tender Assessment and Plan Assessment: GERD. We'll perform laparoscopic Loren fundal plication.
[2017-09-07] MEDS ORDERED: fentaNYL (PF) 50 MCG/ML 2 ML AMP ONE (11:06)
[2017-09-07] MEDS ORDERED: MEPERIDINE 50 MG/ML SYRINGE ONE (11:06)
[2017-09-07] MEDS ORDERED: SUCCINYLCHOLINE CHLORIDE 100 MG/5 ML SYR IV ONE (11:06)
[2017-09-07] MEDS ORDERED: NEOSTIGMINE 1 MG/ML 10 ML VIAL ONE (11:06)
[2017-09-07] MEDS ORDERED: MIDAZOLAM 2 MG/2 ML VIAL ONE (11:06)
[2017-09-07] MEDS ORDERED: GLYCOPYRROLATE 0.2 MG/ML 2 ML VIAL ONE (11:06)
[2017-09-07] MEDS ORDERED: LIDOCAINE 1% INJ 10MG/ML (20 ML MDV) ONE (11:06)
[2017-09-07] MEDS ORDERED: PROPOFOL 10 MG/ML 20 ML VIAL IV ONE (11:06)
[2017-09-07] MEDS ORDERED: ROCURONIUM BROMIDE 10 MG/ML 10 ML VIAL IV ONE (11:06)
[2017-09-07] MEDS ORDERED: BUPIVACAINE (PF) 0.25% 30 ML VIAL SQ ONE (11:35)
[2017-09-07] MEDS ORDERED: LACTATED RINGERS 1,000 ML IV ONE ×2 (11:44→13:52)
[2017-09-07] MEDS ORDERED: ONDANSETRON 4 MG/2 ML VIAL IVP PRN (11:56)
--- NOTE | 2017-09-07 11:56 | P.OP ---
Date of Procedure: 09/07/17 Preoperative Diagnosis: GERD Postoperative Diagnosis: GERD Procedure(s) Performed: Laparoscopic Loren fundoplication Anesthesia: ELLIOTT Surgeon: Andrae Adorno Estimated Blood Loss (ml): 5 Pathology: none sent Condition: stable Disposition: PACU Description of Procedure: Karon patient was placed on the operating table in the supine position. The patient received general anesthesia. And was placed in dorsal lithotomy position. The patient was prepped and draped in the usual sterile fashion. The skin incision sites were anesthetized with 1% local Xylocaine. The skin was incised in the left periumbilical area and then using a blade less 5 mm trocar under direct visualization panel cavity was entered. After adequate insufflation the laparoscope was then placed into the peritoneal cavity. Next a 5 mm trochars placed in the right epigastric position. Another 5 millimeter trocar the right lateral position. Another 5 millimeter trocar in the left lateral position a 5 mm trocar is placed in the left epigastric position. And then the initial 5 mm trocar was exchanged for a 10 mm trocar. The left lateral lobe liver was retracted. The hernia was seen. The crural defect was then dissected using the Harmonic scissors device. A 360 crural dissection was performed the esophagus stomach was reduced back into the peritoneal Cavity. The crural defect was then closed using 2-0 Ethibond suture. Next the fundus of the stomach was mobilized using the [place] scissors device. and then a 58-G[place] bougie dilator was placed oropharynx passed into the esophagus and stomach the fundal plication wrap was then performed by grasping the fundus posteriorly and bringing it around the esophagus and stomach fundoplication was then performed using 2-0 Ethibond suture. Care was taken that the fundal location rested over top of the intra-abdominal esophagus. There was no injury seen to the stomach or esophagus. The dilator was then withdrawn. The abdomen was irrigated there is no bleeding seen. The trochars were then withdrawn and then skin incision sites were closed using 3-0 Monocryl suture Steri-Strips are applied. Patient thought procedure well and sent to recovery room in stable condition.
[2017-09-07] MEDS ORDERED: ONDANSETRON 4 MG/2 ML VIAL IVP ONE (12:36)
[2017-09-07] MEDS ORDERED: MORPHINE SULFATE 4 MG/ML SYRINGE IV ONE (12:37)
[2017-09-07] MEDS ORDERED: MORPHINE SULFATE 4 MG/ML SYRINGE IVP ONE (13:49)
[2017-09-07] MEDS ORDERED: diphenhydrAMINE 50 MG/ML 1 ML VIAL IVP ONE ×2 (13:50→14:00)
[2017-09-07] MEDS: D5-0.45% NACL WITH KCL 20MEQ/L 1,000 ML IV SCH ×3 (16:20→23:52)
--- NOTE | 2017-09-07 16:45 | FL ---
Single contrast esophagram EXAMINATION TYPE: FL esophagus cervic/pharynx DATE OF EXAM: 09/07/2017 4:31 PM COMPARISON: NONE CLINICAL HISTORY: Status post Dar fundoplication The patient ingested contrast without difficulty or delay. Noted are changes of Dar fundoplicatio n. There is no evidence for leak or obstruction. Small amount of residual contrast within the distal esophagus. IMPRESSION: Post-surgical change of Dar fundoplication without evidence for leak or obstruction.
[2017-09-07] MEDS: MORPHINE SULFATE 4 MG/ML SYRINGE IVP PRN ×2 (16:57→21:03)
[2017-09-08] MEDS: LACTATED RINGERS 1,000 ML IV SCH (02:06)
[2017-09-08] MEDS: MORPHINE SULFATE 4 MG/ML SYRINGE IVP PRN (05:14)
[2017-09-08] MEDS: D5-0.45% NACL WITH KCL 20MEQ/L 1,000 ML IV SCH (05:32)
[2017-09-08] MEDS ORDERED: ENOXAPARIN 40 MG/0.4 ML SYRINGE SQ SCH (09:00)
[2017-09-08] MEDS ORDERED: IBUPROFEN 200 MG TAB PO PRN (09:29)
[2017-09-08] MEDS ORDERED: HYDROcodone/APAP 5-325MG 1 EACH TAB PO PRN (09:29)
--- NOTE | 2017-09-08 10:41 | P.DS ---
Providers Date of admission: 09/07/17 21:12 Expected date of discharge: 09/08/17 Attending physician: Andrae Adorno Consults: 09/07/17 11:56 Consult Physician Routine Consulting Provider: Caro Chris Consult Reason/Comments: Medical management Do you want consulting provider notified?: Yes Primary care physician: Emerita Zuniga [facility] Course: 32-year-old female who has had a long-standing problem with reflux esophagitis. Recently underwent an EGD showed evidence of esophagitis. Patient underwent on the 07 of September a laparoscopic Loren fundoplication for symptomatic esophageal reflex symptoms. There were no postop events. Patient was felt to be stable and appropriate to proceed with discharge home. Impression discharge diagnoses September 07 underwent laparoscopically niacin from the medication for symptomatic esophageal reflux symptoms Long-standing symptomatic symptoms reflex esophagitis A recent EGD showing evidence of esophagitis The above impression and plan of care have been discussed and directed by signing physician. Vani Deng nurse practitioner acting as scribe for signing physician. Plan - Discharge Summary New Discharge Prescriptions: New HYDROcodone/APAP 5-325MG [[place] 5-325] 1 each PO Q4HR PRN #15 tab PRN Reason: Moderate Pain Ibuprofen [Advil] 200 mg PO Q4HR PRN tab PRN Reason: Mild Pain Continue Multivitamins, Thera [Multivitamin (formulary)] 1 tab PO DAILY LORazepam [Ativan] 0.5 mg PO DAILY PRN PRN Reason: Anxiety Ibuprofen [Motrin] 800 mg PO Q8H PRN PRN Reason: Pain Discharge Medication List LORazepam [Ativan] 0.5 mg PO DAILY PRN 05/12/17 [History] Multivitamins, Thera [Multivitamin (formulary)] 1 tab PO DAILY 05/12/17 [History ] Ibuprofen [Motrin] 800 mg PO Q8H PRN 09/01/17 [History] HYDROcodone/APAP 5-325MG [[place]argo 5-325] 1 each PO Q4HR PRN #15 tab 09/08/17 [Rx] Ibuprofen [Advil] 200 mg PO Q4HR PRN tab 09/08/17 [Rx] Follow up Appointment(s)/Referral(s): Andrae Adorno MD [STAFF PHYSICIAN] - 1 Week (August AT 3:30PM) Activity/Diet/Wound Care/Special Instructions: No tub bath for six weeks. Shower daily. No lifting over 4 pounds for the next 6 weeks. . Liquid diet for 2 weeks after surgery May use ice packs to surgical site. No driving while taking narcotic for pain. Stopped taking protonix off from work until seen by surgeon Discharge Disposition: HOME SELF-CARE
[2017-09-08 13:02] VITALS: BP 110/68; PULSE 72; RESP 16; TEMP 98; BMI 22.1
== END 2017-09-08 12:26 | disposition home or self-care (01) ==
LOC: OR 08:46 → 6PED 11:45 → OR 21:12 → 6PED 21:12
PROVIDERS: ADMIT Surgery; ATTEND Surgery
DX: K21.0 Gastro-esophageal reflux disease with esophagitis (principal); I10 Essential (primary) hypertension; M19.90 Unspecified osteoarthritis, unspecified site; F41.9 Anxiety disorder, unspecified; R91.8 Other nonspecific abnormal finding of lung field; Z85.41 Personal history of malignant neoplasm of cervix uteri; Z87.891 Personal history of nicotine dependence; Z80.3 Family history of malignant neoplasm of breast; Z83.3 Family history of diabetes mellitus; Z82.5 Family history of asthma and other chronic lower respiratory diseases; Z82.49 Family history of ischemic heart disease and other diseases of the circulatory system
CPT/HCPCS: 43280; 74210; G0378 ×2; J2250; J2270 ×2; J1200; J1644; J1100; J2710; Q9967; J2175; J2405; J2001; J1650; J3010; J0330; J2704; J0690

== ENCOUNTER 2017-11-02 14:41 | Emergency (ER) | payer OTHER ==
[2017-11-02] MEDS ORDERED: MAG HYDROX/AL HYDROX/SIMETH 30 ML, HYOSCYAMINE ELIXIR 10 ML, CIMETIDINE HCL 300 MG, LID... PO STA ×4 (16:19)
[2017-11-02 16:42] VITALS: TEMP 97.9
[2017-11-02] MEDS ORDERED: RX INFO: IV CONTRAST WAS GIVEN 1 EACH MISC MISCELLANE PRN (17:30)
[2017-11-02 17:51] LABS: Basophils % (A) 0 %; Eosinophils # (A) 0.1 k/uL (0-0.7); Eosinophils % (A) 1 %; HCT 38.1 % (34.0-46.0); HGB 13.1 gm/dL (11.4-16.0); Lymphocytes # (A) 2.6 k/uL (1.0-4.8); Lymphocytes % (A) 26 %; MCH 30.9 pg (25.0-35.0); MCHC 34.4 g/dL (31.0-37.0); MCV 89.7 fL (80.0-100.0); Mean Platelet Volume 8.5; Monocytes # (A) 0.5 k/uL (0-1.0); Monocytes % (A) 5 %; Neutrophils # (A) 6.7 k/uL (1.3-7.7); Neutrophils % (A) 66 %; Platelet Count 201 k/uL (150-450); RBC 4.25 m/uL (3.80-5.40); RDW 12.8 % (11.5-15.5); WBC 10.1 k/uL (3.8-10.6)
[2017-11-02 18:06] LABS: ALT 18 U/L (9-52); AST 20 U/L (14-36); Albumin 4.6 g/dL (3.5-5.0); Alkaline Phosphatase 73 U/L (38-126); Anion Gap 15 mmol/L; Blood Urea Nitrogen 9 mg/dL (7-17); Carbon Dioxide 25 mmol/L (22-30); Chloride 105 mmol/L (98-107); Glucose 98 mg/dL (74-99); Potassium 3.9 mmol/L (3.5-5.1); Sodium 145 mmol/L (137-145); Total Bilirubin 0.3 mg/dL (0.2-1.3); Total Protein 7.4 g/dL (6.3-8.2)
[2017-11-02 19:24] VITALS: BP 144/86; PULSE 64; RESP 19
--- NOTE | 2017-11-02 19:44 | CT ---
EXAMINATION TYPE: CT abdomen w con DATE OF EXAM: 11/02/2017 COMPARISON: 08/26/2017 HISTORY: Pain CT DLP: mGycm Automated exposure control for dose reduction was used. TECHNIQUE: Helical acquisition of images was performed from the lung bases through the top of iliac crest to include entire abdomen. CONTRAST: The IV contrast was Isovue 100 mL. FINDINGS: Lung bases are clear. There is no pleural effusion. Heart size is normal. There are multiple surgical clips at the gastroesophageal junction. There is a 1.7 cm hypodense area in the anterior right lobe of the liver that could be a hemangioma. There are clips from cholecystect juan. The remainder of the liver appears normal. Bile ducts are not dilated. Spleen and pancreas appea r normal. There is no adrenal mass. Kidneys show satisfactory contrast opacification. There is no hyd ronephrosis. There is no retroperitoneal adenopathy. Appendix is seen and appears normal. I see no in testinal wall thickening. There are no dilated loops. There is probably a 2.5 cm left ovarian cyst. T here is no sign of ascites. IMPRESSION: PREVIOUS SURGERY THAT COULD BE BARIATRIC SURGERY AT THE GASTROESOPHAGEAL JUNCTION. STABLE SMALL HYPOD ENSE AREA IN THE ANTERIOR RIGHT LOBE OF THE LIVER COULD BE A HEMANGIOMA OR OTHER BENIGN ETIOLOGY. No sign of an acute abdomen. No adverse change compared to old exam.
--- NOTE | 2017-11-02 19:47 | CT ---
EXAMINATION TYPE: CT chest angio for PE DATE OF EXAM: 11/02/2017 COMPARISON: 07/31/2017 HISTORY: Chest/epigastric pain x1 week. CT DLP: 1156.5 mGycm Automated exposure control for dose reduction was used. CONTRAST: CT Chest for pulmonary embolism performed with with IV Contrast, patient injected with 100ml mL of Is ovue 370. FINDINGS: There are 3-D post processed images. The lungs are clear of infiltrate. There is no evidence of a pulmonary mass. There is no mediastinal adenopathy. Heart and mediastinum appear normal. There is no evidence of aortic aneurysm or dissectio n. There are no hilar masses. There is no pericardial effusion. There is no pleural effusion. There is normal contrast opacification of the pulmonary arteries. I see no filling defects. IMPRESSION: Negative CT angiogram of the chest. No evidence of pulmonary embolism. No adverse change compared to old exam.
--- NOTE | 2017-11-02 19:47 | ED ---
General Adult HPI - General Chief complaint: Recheck/Abnormal Lab/Rx Stated complaint: trouble swallowing/lump in esophagus Time Seen by Provider: 11/02/17 16:10 Source: patient, RN notes reviewed Mode of arrival: ambulatory Limitations: no limitations - History of Present Illness Initial comments: 32-year-old female presents from chief complaint of a sensation in her upper abdomen chest region. Patient states that she feels like something is stuck in her throat and asthma was up and down. She states that she has a history of GERD, hiatal hernia. Patient had a Dar fundoplication by Dr. Adorno August. She states her last week symptoms are getting worse. She states she has not taken any current and antacids as they told her to discontinue them after her surgery. They told her that she should be fine.. Patient denies any shortness of breath, headache or dizziness. Denies any vomiting diarrhea constipation. Patient has no fever no chills. Patient states that she has not seen Dr. Addison for her current symptoms. - Related Data Home Medications Medication Instructions Recorded Confirmed LORazepam [Ativan] 0.5 mg PO BID PRN 05/12/17 11/02/17 Multivitamins, Thera [Multivitamin 1 tab PO DAILY 05/12/17 11/02/17 (formulary)] Allergies Allergy/AdvReac Type Severity Reaction Status Date / Time No Known Allergies Allergy Verified 11/02/17 16:21 Review of Systems ROS Statement: Those systems with pertinent positive or pertinent negative responses have been documented in the HPI. ROS Other: All systems not noted in ROS Statement are negative. Past Medical History Past Medical History: Cancer, GERD/Reflux, Hypertension, Osteoarthritis (OA) Additional Past Medical History / Comment(s): state stable pulmonary nodules on ct scan",Hx stress related hypertension. Hx kidney stones, Hx cervical cancer. History of Any Multi-Drug Resistant Organisms: None Reported, MRSA Date of last positivie culture/infection: 12/25/16 MDRO Source:: Left arm axilla Past Surgical History: Section, Cholecystectomy, Hernia Repair, Hysterectomy, Orthopedic Surgery, Tubal Ligation Additional Past Surgical History / Comment(s): Had plate and 6 screws in left ankle-hardware removed lt ankle August 2016,hernia repairs x 4 umbilical,c sect x3 Past Anesthesia/Blood Transfusion Reactions: Family History of Problems w/ Anesthesia, Postoperative Nausea & Vomiting (PONV) Additional Past Anesthesia/Blood Transfusion Reaction / Comment(s): Also mother has PONV, no hx blood transfusion Past Psychological History: Anxiety Smoking Status: Former smoker Past Alcohol Use History: Occasional Past Drug Use History: None Reported - Past Family History Mother Family Medical History: Cancer, Hypertension Additional Family Medical History / Comment(s): Breast Cancer,fadia mastectomy Father Family Medical History: Asthma, Diabetes Mellitus, Hypertension, Rheumatoid Arthritis (RA) General Exam Limitations: no limitations General appearance: alert, in no apparent distress Head exam: Present: atraumatic, normocephalic, normal inspection Eye exam: Present: normal appearance, PERRL, EOMI. Absent: scleral icterus, conjunctival injection, periorbital swelling ENT exam: Present: normal exam, normal oropharynx, mucous membranes moist Neck exam: Present: normal inspection. Absent: tenderness, meningismus, lymphadenopathy Respiratory exam: Present: normal lung sounds bilaterally. Absent: respiratory distress, wheezes, rales, rhonchi, stridor Cardiovascular Exam: Present: regular rate, normal rhythm, normal heart sounds. Absent: systolic murmur, diastolic murmur, rubs, gallop, clicks GI/Abdominal exam: Present: soft, tenderness (Mild epigastric), normal bowel sounds. Absent: distended, guarding, rebound, rigid Course Vital Signs 11/02/17 11/02/17 11/02/17 14:53 16:31 19:00 Temperature 97.8 F 97.9 F Pulse Rate 89 72 81 Respiratory 16 18 20 Rate Blood Pressure 157/95 128/94 142/85 O2 Sat by Pulse 98 99 100 Oximetry 11/02/17 19:22 Temperature Pulse Rate 64 Respiratory 19 Rate Blood Pressure 144/86 O2 Sat by Pulse 98 Oximetry Medical Decision Making - Medical Decision Making 32-year-old female presented emergency department for esophageal, epigastric discomfort. Patient had recently some complication. Patient lab work, CT unremarkable. Unable to get a barium swallow. Patient's symptoms seem to be related to GERD versus esophagitis. Patient advised to restart and antacids at home follow-up with Dr. Addison for EGD and return for any worsening symptoms. - Lab Data Result diagrams: 11/02/17 17:38 11/02/17 17:38 Lab Results 11/02/17 11/02/17 Range/Units 17:38 17:38 WBC 10.1 (3.8-10.6) k/uL RBC 4.25 (3.80-5.40) m/uL Hgb 13.1 (11.4-16.0) gm/dL Hct 38.1 (34.0-46.0) % MCV 89.7 (80.0-100.0) fL MCH 30.9 (25.0-35.0) pg MCHC 34.4 (31.0-37.0) g/dL RDW 12.8 (11.5-15.5) % Plt Count 201 (150-450) k/uL Neutrophils % 66 % Lymphocytes % 26 % Monocytes % 5 % Eosinophils % 1 % Basophils % 0 % Neutrophils # 6.7 (1.3-7.7) k/uL Lymphocytes # 2.6 (1.0-4.8) k/uL Monocytes # 0.5 (0-1.0) k/uL Eosinophils # 0.1 (0-0.7) k/uL Basophils # 0.0 (0-0.2) k/uL Sodium 145 (137-145) mmol/L Potassium 3.9 (3.5-5.1) mmol/L Chloride 105 (98-107) mmol/L Carbon Dioxide 25 (22-30) mmol/L Anion Gap 15 mmol/L BUN 9 (7-17) mg/dL Creatinine 0.70 (0.52-1.04) mg/dL Est GFR (CKD-EPI)AfAm >90 (>60 ml/min/1.73 sqM) Est GFR (CKD-EPI)NonAf >90 (>60 ml/min/1.73 sqM) Glucose 98 (74-99) mg/dL Calcium 10.0 (8.4-10.2) mg/dL Total Bilirubin 0.3 (0.2-1.3) mg/dL AST 20 (14-36) U/L ALT 18 (9-52) U/L Alkaline Phosphatase 73 (38-126) U/L Total Protein 7.4 (6.3-8.2) g/dL Albumin 4.6 (3.5-5.0) g/dL Disposition Clinical Impression: Esophagitis, Abdominal pain Disposition: HOME SELF-CARE Condition: Stable Instructions: Gastroesophageal Reflux Disease (ED) Additional Instructions: Please return to the Emergency Department if symptoms worsen or any other concerns. Is patient prescribed a controlled substance at d/c from ED?: No Referrals: Amparo Felder MD [Primary Care Provider] - 1-2 days Andrae Adorno MD [STAFF PHYSICIAN] - 1-2 days Time of Disposition: 19:53
== END 2017-11-02 20:01 | disposition home or self-care (01) ==
LOC: EC 14:41
DX: K20.9 Esophagitis, unspecified (principal); R10.9 Unspecified abdominal pain; K21.9 Gastro-esophageal reflux disease without esophagitis; Z85.41 Personal history of malignant neoplasm of cervix uteri; Z87.891 Personal history of nicotine dependence; Z86.14 Personal history of Methicillin resistant Staphylococcus aureus infection; Z90.49 Acquired absence of other specified parts of digestive tract; Z87.19 Personal history of other diseases of the digestive system
CPT/HCPCS: 36415; 80053; 85025; 74160; 71275; 99284; Q9967

== ENCOUNTER → 2017-12-15 | Outpatient (CLI) | payer OTHER ==
--- NOTE | 2017-12-15 11:25 | USB ---
Reason for exam: follow-up at short interval from prior study. History: Patient has history of other cancer at age 24. Family history of breast cancer in mother at age 50. US Breast LT Left complete breast ultrasound includes all four quadrants, the retroareolar region and axilla. Finding demonstrates a 0.9 x 0.5 x 0.8cm lymph node at 3 o'clock and a 0.2 x 0.2 x 0.2cm lesion too small to characterize at 11 o'clock. These results were verbally communicated with the patient and result sheet given to the patient on 12/15/17. ASSESSMENT: Probably benign, BI-RAD 3 RECOMMENDATION: Ultrasound of the left breast in 6 months. Routine screening mammogram of both breasts at age 38.
== END | disposition home or self-care (01) ==
LOC: RADUSWWP 09:56
PROVIDERS: ATTEND Surgery
DX: N60.02 Solitary cyst of left breast (principal)

== ENCOUNTER 2018-06-12 01:08 | Emergency (ER) | payer OTHER ==
[2018-06-12 01:19] VITALS: TEMP 98.3
[2018-06-12] MEDS ORDERED: SODIUM CHLORIDE 0.9% 500 ML 500 ML IV STA (01:59)
[2018-06-12] MEDS ORDERED: SODIUM CHLORIDE 0.9% 1,000 ML IV ONE (02:00)
[2018-06-12 02:17] LABS: Basophils % (A) 0 %; Eosinophils # (A) 0.2 k/uL (0-0.7); Eosinophils % (A) 2 %; HCT 38.9 % (34.0-46.0); HGB 13.5 gm/dL (11.4-16.0); Lymphocytes % (A) 36 %; MCH 31.9 pg (25.0-35.0); MCHC 34.6 g/dL (31.0-37.0); MCV 92.1 fL (80.0-100.0); Mean Platelet Volume 7.7; Monocytes # (A) 0.5 k/uL (0-1.0); Monocytes % (A) 6 %; Neutrophils # (A) 4.5 k/uL (1.3-7.7); Neutrophils % (A) 54 %; Platelet Count 180 k/uL (150-450); RBC 4.23 m/uL (3.80-5.40); RDW 12.9 % (11.5-15.5); WBC 8.3 k/uL (3.8-10.6)
--- NOTE | 2018-06-12 02:23 | XR ---
EXAMINATION TYPE: XR chest 2V DATE OF EXAM: 06/12/2018 COMPARISON: July 31, 2017 HISTORY: Chest pain TECHNIQUE: Frontal and lateral views of the chest are obtained. FINDINGS: There is no heart failure nor confluent pneumonic infiltrate. Heart and mediastinum are no rmal. Diaphragm is normal. There are chest leads. Bony thorax appears normal. IMPRESSION: Normal chest. No change.
[2018-06-12 02:27] LABS: ALT 23 U/L (9-52); AST 28 U/L (14-36); Albumin 4.6 g/dL (3.5-5.0); Alkaline Phosphatase 85 U/L (38-126); Anion Gap 10 mmol/L; Blood Urea Nitrogen 14 mg/dL (7-17); Calcium 9.4 mg/dL (8.4-10.2); Carbon Dioxide 24 mmol/L (22-30); Chloride 107 mmol/L (98-107); Glucose 89 mg/dL (74-99); Magnesium 1.9 mg/dL (1.6-2.3); Potassium 3.8 mmol/L (3.5-5.1); Sodium 141 mmol/L (137-145); Total Bilirubin 0.3 mg/dL (0.2-1.3); Total Protein 8.3 g/dL (6.3-8.2)
--- NOTE | 2018-06-12 02:27 | ED ---
General Adult HPI - General Chief complaint: Arrhythmia/Palpitations Stated complaint: Palpitations Time Seen by Provider: 06/12/18 01:33 Source: patient Mode of arrival: ambulatory Limitations: no limitations - History of Present Illness Initial comments: 32-year-old female patient presents to the emergency department today for evaluation of palpitations and chest pressure. Patient states that she has been having intermittent episodes of this over the last 24 hours. Patient states that she does have a history of anxiety however symptoms are different than her usual episodes. Patient states that she feels like her heart is racing when she attempts to lie down. She denies any shortness of breath, nausea, or vomiting. Denies any dizziness or weakness. Patient does admit to having 2 alcoholic beverages this evening. States she did not take her home Ativan. Patient denies any recent rash, fever, chills, shortness breath, chest pain, abdominal pain, diarrhea, constipation, back pain, numbness, tingling, dizziness, weakness, hematuria, dysuria, urinary urgency, urinary frequency, headache, visual changes, or any other complaints. - Related Data Home Medications Medication Instructions Recorded Confirmed LORazepam [Ativan] 0.5 mg PO BID PRN 05/12/17 06/12/18 Multivitamins, Thera [Multivitamin 1 tab PO DAILY 05/12/17 06/12/18 (formulary)] Allergies Allergy/AdvReac Type Severity Reaction Status Date / Time No Known Allergies Allergy Verified 05/20/18 17:35 Review of Systems ROS Statement: Those systems with pertinent positive or pertinent negative responses have been documented in the HPI. ROS Other: All systems not noted in ROS Statement are negative. Past Medical History Past Medical History: Cancer, GERD/Reflux, Hypertension, Osteoarthritis (OA) Additional Past Medical History / Comment(s): state stable pulmonary nodules on ct scan",Hx stress related hypertension. Hx kidney stones, Hx cervical cancer. History of Any Multi-Drug Resistant Organisms: None Reported, MRSA Date of last positivie culture/infection: 12/25/16 MDRO Source:: Left arm axilla Past Surgical History: Section, Cholecystectomy, Hernia Repair, Hysterectomy, Orthopedic Surgery, Tubal Ligation Additional Past Surgical History / Comment(s): Had plate and 6 screws in left ankle-hardware removed lt ankle August 2016,hernia repairs x 4 umbilical,c sect x3 Past Anesthesia/Blood Transfusion Reactions: Family History of Problems w/ Anesthesia, Postoperative Nausea & Vomiting (PONV) Additional Past Anesthesia/Blood Transfusion Reaction / Comment(s): Also mother has PONV, no hx blood transfusion Past Psychological History: Anxiety Smoking Status: Former smoker Past Alcohol Use History: Occasional Past Drug Use History: None Reported - Past Family History Mother Family Medical History: Cancer, Hypertension Additional Family Medical History / Comment(s): Breast Cancer,fadia mastectomy Father Family Medical History: Asthma, Diabetes Mellitus, Hypertension, Rheumatoid Arthritis (RA) General Exam Limitations: no limitations General appearance: alert, in no apparent distress, other (This is a well- developed, well-nourished adult female patient in no acute distress. Vital signs upon presentation are temperature 98.2F, pulse 90, respirations 20, blood pressure 165/100, pulse ox 99% on room air.) Eye exam: Present: normal appearance, PERRL, EOMI. Absent: scleral icterus, conjunctival injection, periorbital swelling ENT exam: Present: normal exam, normal oropharynx, mucous membranes moist Respiratory exam: Present: normal lung sounds bilaterally. Absent: respiratory distress, wheezes, rales, rhonchi, stridor Cardiovascular Exam: Present: regular rate, normal rhythm, normal heart sounds. Absent: systolic murmur, diastolic murmur, rubs, gallop, clicks GI/Abdominal exam: Present: soft, normal bowel sounds. Absent: distended, tenderness, guarding, rebound, rigid Neurological exam: Present: alert, oriented X3, CN II-XII intact Psychiatric exam: Present: normal affect, normal mood Skin exam: Present: warm, dry, intact, normal color. Absent: rash Course Vital Signs 06/12/18 01:15 Temperature 98.3 F Pulse Rate 90 Respiratory 20 Rate Blood Pressure 165/100 O2 Sat by Pulse 99 Oximetry EKG Findings - EKG Comments: EKG Findings:: EKG obtained at shows normal sinus rhythm with a ventricular rate of 94, AK interval 158, QRS duration 96, QT 376, QTc 470. No evidence of ST elevation or depression. Medical Decision Making - Medical Decision Making 32-year-old female patient presents to emergency department today for complaints of palpitations and racing heart. Physical examination is unremarkable. EKG showed normal sinus rhythm. Labs reviewed and were unremarkable. Electrolytes normal. Thyroid stimulating hormone is within normal range. Upon reevaluation patient states she is feeling much better. We' ll be discharged home at this time, she is instructed to follow-up with her primary care physician to discuss referral to cardiology for Holter monitoring if symptoms persist. She is instructed take Ativan upon arrival home. Return parameters were discussed in detail. She verbalizes understanding and agrees with this plan. - Lab Data Result diagrams: 06/12/18 01:33 06/12/18 01:33 Lab Results 06/12/18 06/12/18 06/12/18 Range/Units 01:33 01:33 01:33 WBC 8.3 (3.8-10.6) k/uL RBC 4.23 (3.80-5.40) m/uL Hgb 13.5 (11.4-16.0) gm/dL Hct 38.9 (34.0-46.0) % MCV 92.1 (80.0-100.0) fL MCH 31.9 (25.0-35.0) pg MCHC 34.6 (31.0-37.0) g/dL RDW 12.9 (11.5-15.5) % Plt Count 180 (150-450) k/uL Neutrophils % 54 % Lymphocytes % 36 % Monocytes % 6 % Eosinophils % 2 % Basophils % 0 % Neutrophils # 4.5 (1.3-7.7) k/uL Lymphocytes # 3.0 (1.0-4.8) k/uL Monocytes # 0.5 (0-1.0) k/uL Eosinophils # 0.2 (0-0.7) k/uL Basophils # 0.0 (0-0.2) k/uL PT (9.0-12.0) sec INR (<1.2) APTT (22.0-30.0) sec Sodium 141 (137-145) mmol/L Potassium 3.8 (3.5-5.1) mmol/L Chloride 107 (98-107) mmol/L Carbon Dioxide 24 (22-30) mmol/L Anion Gap 10 mmol/L BUN 14 (7-17) mg/dL Creatinine 0.73 (0.52-1.04) mg/dL Est GFR (CKD-EPI)AfAm >90 (>60 ml/min/1.73 sqM) Est GFR (CKD-EPI)NonAf >90 (>60 ml/min/1.73 sqM) Glucose 89 (74-99) mg/dL Calcium 9.4 (8.4-10.2) mg/dL Magnesium 1.9 (1.6-2.3) mg/dL Total Bilirubin 0.3 (0.2-1.3) mg/dL AST 28 (14-36) U/L ALT 23 (9-52) U/L Alkaline Phosphatase 85 (38-126) U/L Total Creatine Kinase 60 (30-135) U/L CK-MB (CK-2) 0.3 (0.0-2.4) ng/mL CK-MB (CK-2) Rel Index 0.5 Troponin I 0.015 (0.000-0.034) ng/mL Total Protein 8.3 H (6.3-8.2) g/dL Albumin 4.6 (3.5-5.0) g/dL TSH 3.760 (0.465-4.680) mIU/L Urine Color Urine Appearance (Clear) Urine pH (5.0-8.0) Ur Specific [place] (1.001-1.035) Urine Protein (Negative) Urine Glucose (UA) (Negative) Urine Ketones (Negative) Urine Blood (Negative) Urine Nitrite (Negative) Urine Bilirubin (Negative) Urine Urobilinogen (<2.0) mg/dL Ur Leukocyte Esterase (Negative) 06/12/18 06/12/18 Range/Units 01:33 03:04 WBC (3.8-10.6) k/uL RBC (3.80-5.40) m/uL Hgb (11.4-16.0) gm/dL Hct (34.0-46.0) % MCV (80.0-100.0) fL MCH (25.0-35.0) pg MCHC (31.0-37.0) g/dL RDW (11.5-15.5) % Plt Count (150-450) k/uL Neutrophils % % Lymphocytes % % Monocytes % % Eosinophils % % Basophils % % Neutrophils # (1.3-7.7) k/uL Lymphocytes # (1.0-4.8) k/uL Monocytes # (0-1.0) k/uL Eosinophils # (0-0.7) k/uL Basophils # (0-0.2) k/uL PT 9.7 (9.0-12.0) sec INR 0.9 (<1.2) APTT 25.0 (22.0-30.0) sec Sodium (137-145) mmol/L Potassium (3.5-5.1) mmol/L Chloride (98-107) mmol/L Carbon Dioxide (22-30) mmol/L Anion Gap mmol/L BUN (7-17) mg/dL Creatinine (0.52-1.04) mg/dL Est GFR (CKD-EPI)AfAm (>60 ml/min/1.73 sqM) Est GFR (CKD-EPI)NonAf (>60 ml/min/1.73 sqM) Glucose (74-99) mg/dL Calcium (8.4-10.2) mg/dL Magnesium (1.6-2.3) mg/dL Total Bilirubin (0.2-1.3) mg/dL AST (14-36) U/L ALT (9-52) U/L Alkaline Phosphatase (38-126) U/L Total Creatine Kinase (30-135) U/L CK-MB (CK-2) (0.0-2.4) ng/mL CK-MB (CK-2) Rel Index Troponin I (0.000-0.034) ng/mL Total Protein (6.3-8.2) g/dL Albumin (3.5-5.0) g/dL TSH (0.465-4.680) mIU/L Urine Color Yellow Urine Appearance Clear (Clear) Urine pH 5.5 (5.0-8.0) Ur Specific [place] 1.019 (1.001-1.035) Urine Protein Negative (Negative) Urine Glucose (UA) Negative (Negative) Urine Ketones Negative (Negative) Urine Blood Negative (Negative) Urine Nitrite Negative (Negative) Urine Bilirubin Negative (Negative) Urine Urobilinogen <2.0 (<2.0) mg/dL Ur Leukocyte Esterase Negative (Negative) - Radiology Data Radiology results: report reviewed, image reviewed Two-view x-ray of the chest is obtained. Report was reviewed in its entirety. Impression by Dr. Interiano shows normal chest with no change. Disposition Clinical Impression: Palpitations Disposition: HOME SELF-CARE Condition: Good Instructions: Heart Palpitations (ED) Additional Instructions: Follow-up with your primary care physician for recheck as soon as possible, discuss cardiology consultation or Holter monitoring. Return to the emergency department immediately if anything should change or worsen. Is patient prescribed a controlled substance at d/c from ED?: No Referrals: Amparo Felder MD [Primary Care Provider] - 1-2 days Time of Disposition: 03:39
[2018-06-12 02:40] LABS: INR 0.9 (<1.2); Prothrombin Time 9.7 sec (9.0-12.0)
[2018-06-12 02:52] LABS: Creatine Kinase MB 0.3 ng/mL (0.0-2.4); Troponin I 0.015 ng/mL (0.000-0.034)
[2018-06-12 03:31] LABS: Appearance,Urine Clear (Clear); Bilirubin,Urine Negative (Negative); Blood,Urine Negative (Negative); Color,Urine Yellow; Glucose,Urine (UA) Negative (Negative); Ketones,Urine Negative (Negative); Leukocyte Esterase,Urine Negative (Negative); Nitrite,Urine Negative (Negative); PH, Urine 5.5 (5.0-8.0); Protein,Urine Negative (Negative); Specific Gravity,Urine 1.019 (1.001-1.035); Urobilinogen,Urine <2.0 mg/dL (<2.0)
[2018-06-12 03:48] VITALS: BP 117/67; PULSE 69; RESP 16
== END 2018-06-12 03:46 | disposition home or self-care (01) ==
LOC: EC 01:08
DX: R00.2 Palpitations (principal); R07.89 Other chest pain; F41.9 Anxiety disorder, unspecified; Z87.891 Personal history of nicotine dependence; Z85.41 Personal history of malignant neoplasm of cervix uteri
CPT/HCPCS: 36415; 71046; 80053; 81003; 82550; 82553; 83735; 84443; 84484; 85025; 85610; 85730; 93005; 96360; 99285

== ENCOUNTER → 2018-07-07 | Outpatient (CLI) | payer OTHER ==
--- NOTE | 2018-07-09 07:35 | USB ---
Reason for exam: follow-up at short interval from prior study. History: Patient has history of other cancer at age 24. Family history of breast cancer in mother at age 50. Physical Findings: Nurse Summary: Mobil 0.5 cm lesion at 7 o'clock. US Breast LT Left complete breast ultrasound includes all four quadrants, the retroareolar region and axilla. Finding demonstrates a 3 x 2 x 3 mm oval to small to characterize lesion at 2 o'clock, a 2 x 2 x 2 mm oval to small to characterize lesion at 11 o'clock. These results were verbally communicated with the patient and result sheet given to the patient on 07/07/18. ASSESSMENT: Benign, BI-RAD 2 RECOMMENDATION: Routine screening mammogram of both breasts at age 38.
== END ==
LOC: RADUSWWP 14:47
PROVIDERS: ATTEND Surgery
DX: R92.8 Other abnormal and inconclusive findings on diagnostic imaging of breast (principal)

== ENCOUNTER 2018-09-11 12:40 | Emergency (ER) | payer OTHER ==
[2018-09-11 12:49] VITALS: RESP 18; TEMP 98.5
--- NOTE | 2018-09-11 13:21 | ED ---
Abdominal Pain HPI - General Chief Complaint: Abdominal Pain Stated Complaint: JIA, epigastric pain Time Seen by Provider: 09/11/18 13:02 Source: patient, RN notes reviewed, old records reviewed Mode of arrival: ambulatory Limitations: no limitations - History of Present Illness Initial Comments: 33-year-old female presents emergency room one month of complaining of epigastric abdominal pain and gassiness and bloated feeling. She also states the past 4 days has been feeling more short of breath. She has a history of Loren fundoplication. She reports she's been under stress. Symptoms started after her [id number] . Patient states that Patient did take a and an earlier today and did relieve some of her anxiety and complaints of symptoms. Patient states that she has had no nausea or vomiting. She denies any recent fevers or chills. She denies a cough. She is generally active and healthy. - Related Data Home Medications Medication Instructions Recorded Confirmed LORazepam [Ativan] 0.5 mg PO BID PRN 05/12/17 06/12/18 Multivitamins, Thera [Multivitamin 1 tab PO DAILY 05/12/17 06/12/18 (formulary)] Previous Rx's Medication Instructions Recorded Famotidine [Pepcid] 20 mg PO BID #20 tablet 09/11/18 Sucralfate [Carafate] 1 gm PO ACHS #30 tablet 09/11/18 Allergies Allergy/AdvReac Type Severity Reaction Status Date / Time No Known Allergies Allergy Verified 09/11/18 12:49 Review of Systems ROS Statement: Those systems with pertinent positive or pertinent negative responses have been documented in the HPI. ROS Other: All systems not noted in ROS Statement are negative. Past Medical History Past Medical History: Cancer, GERD/Reflux, Hypertension, Osteoarthritis (OA) Additional Past Medical History / Comment(s): state stable pulmonary nodules on ct scan",Hx stress related hypertension. Hx kidney stones, Hx cervical cancer. History of Any Multi-Drug Resistant Organisms: None Reported, MRSA Date of last positivie culture/infection: 12/25/16 MDRO Source:: Left arm axilla Past Surgical History: Section, Cholecystectomy, Hernia Repair, Hysterectomy, Orthopedic Surgery, Tubal Ligation Additional Past Surgical History / Comment(s): Had plate and 6 screws in left ankle-hardware removed lt ankle August 2016,hernia repairs x 4 umbilical,c sect x3 Past Anesthesia/Blood Transfusion Reactions: Family History of Problems w/ Anesthesia, Postoperative Nausea & Vomiting (PONV) Additional Past Anesthesia/Blood Transfusion Reaction / Comment(s): Also mother has PONV, no hx blood transfusion Past Psychological History: Anxiety Smoking Status: Former smoker Past Alcohol Use History: Occasional Past Drug Use History: None Reported - Past Family History Mother Family Medical History: Cancer, Hypertension Additional Family Medical History / Comment(s): Breast Cancer,fadia mastectomy Father Family Medical History: Asthma, Diabetes Mellitus, Hypertension, Rheumatoid Arthritis (RA) General Exam - General Exam Comments Initial Comments: This is a 33-year-old female. Alert and oriented 3. Patient appears in no significant distress. Limitations: no limitations General appearance: alert, in no apparent distress Head exam: Present: atraumatic, normocephalic, normal inspection Eye exam: Present: normal appearance, PERRL, EOMI. Absent: scleral icterus, conjunctival injection, periorbital swelling ENT exam: Present: normal exam, mucous membranes moist Neck exam: Present: normal inspection. Absent: tenderness, meningismus, lymphadenopathy Respiratory exam: Present: normal lung sounds bilaterally. Absent: respiratory distress, wheezes, rales, rhonchi, stridor Cardiovascular Exam: Present: regular rate, normal rhythm, normal heart sounds. Absent: systolic murmur, diastolic murmur, rubs, gallop, clicks GI/Abdominal exam: Present: soft, normal bowel sounds. Absent: distended, tenderness, guarding, rebound, rigid Extremities exam: Present: normal inspection, full ROM, normal capillary refill. Absent: tenderness, pedal edema, joint swelling, calf tenderness Back exam: Present: normal inspection Neurological exam: Present: alert, oriented X3, CN II-XII intact Psychiatric exam: Present: normal affect, normal mood Skin exam: Present: warm, dry, intact, normal color. Absent: rash Course Vital Signs 09/11/18 12:45 Temperature 98.5 F Pulse Rate 81 Respiratory 18 Rate Blood Pressure 148/98 O2 Sat by Pulse 98 Oximetry - Reevaluation(s) Reevaluation #1: 09/11/18 15:26 is reevaluated this time and states she is feeling much better. Informed that all of her lab results and EKG chest and KUB x-ray are normal. Patient was relieved. Medical Decision Making - Medical Decision Making Patient is a 33-year-old female with history of denies fundoplication presents today with feeling bloated for the past 4 weeks. She states she's also been having significant stress. Patient states that she felt like she is also having some discomfort in breathing. Patient's symptoms seem similar to exacerbation of her anxiety. She did feel better after taking Ativan. Patient did have some labwork obtained and all of that was reviewed and normal. EKG and chest x-ray and troponin tests are negative. Patient was informed her symptoms could also be related to being an ulcer related to stress. Patient will be discharged at this time with following up with Dr. Wan. Discussion may likely need an EGD. Discussed that she should return to emergency department if any alarming signs or symptoms occur. We'll discharge the Patient with prescription for Pepcid and Carafate. - Lab Data Result diagrams: 09/11/18 13:59 09/11/18 13:59 Lab Results 09/11/18 09/11/18 09/11/18 Range/Units 13:40 13:59 13:59 WBC 7.3 (3.8-10.6) k/uL RBC 4.16 (3.80-5.40) m/uL Hgb 12.9 (11.4-16.0) gm/dL Hct 38.7 (34.0-46.0) % MCV 93.0 (80.0-100.0) fL MCH 31.0 (25.0-35.0) pg MCHC 33.4 (31.0-37.0) g/dL RDW 13.2 (11.5-15.5) % Plt Count 212 (150-450) k/uL Neutrophils % 56 % Lymphocytes % 32 % Monocytes % 7 % Eosinophils % 2 % Basophils % 0 % Neutrophils # 4.0 (1.3-7.7) k/uL Lymphocytes # 2.4 (1.0-4.8) k/uL Monocytes # 0.5 (0-1.0) k/uL Eosinophils # 0.2 (0-0.7) k/uL Basophils # 0.0 (0-0.2) k/uL PT (9.0-12.0) sec INR (<1.2) APTT (22.0-30.0) sec Sodium 141 (137-145) mmol/L Potassium 4.4 (3.5-5.1) mmol/L Chloride 108 H (98-107) mmol/L Carbon Dioxide 23 (22-30) mmol/L Anion Gap 10 mmol/L BUN 12 (7-17) mg/dL Creatinine 0.67 (0.52-1.04) mg/dL Est GFR (CKD-EPI)AfAm >90 (>60 ml/min/1.73 sqM) Est GFR (CKD-EPI)NonAf >90 (>60 ml/min/1.73 sqM) Glucose 87 (74-99) mg/dL Calcium 9.8 (8.4-10.2) mg/dL Total Bilirubin 0.5 (0.2-1.3) mg/dL AST 19 (14-36) U/L ALT 24 (9-52) U/L Alkaline Phosphatase 75 (38-126) U/L Troponin I (0.000-0.034) ng/mL Total Protein 7.7 (6.3-8.2) g/dL Albumin 4.4 (3.5-5.0) g/dL Amylase 47 (30-110) U/L Lipase 108 (23-300) U/L Urine Color Light Yellow Urine Appearance Clear (Clear) Urine pH 6.5 (5.0-8.0) Ur Specific [place] 1.006 (1.001-1.035) Urine Protein Negative (Negative) Urine Glucose (UA) Negative (Negative) Urine Ketones Negative (Negative) Urine Blood Negative (Negative) Urine Nitrite Negative (Negative) Urine Bilirubin Negative (Negative) Urine Urobilinogen <2.0 (<2.0) mg/dL Ur Leukocyte Esterase Negative (Negative) 09/11/18 09/11/18 Range/Units 13:59 13:59 WBC (3.8-10.6) k/uL RBC (3.80-5.40) m/uL Hgb (11.4-16.0) gm/dL Hct (34.0-46.0) % MCV (80.0-100.0) fL MCH (25.0-35.0) pg MCHC (31.0-37.0) g/dL RDW (11.5-15.5) % Plt Count (150-450) k/uL Neutrophils % % Lymphocytes % % Monocytes % % Eosinophils % % Basophils % % Neutrophils # (1.3-7.7) k/uL Lymphocytes # (1.0-4.8) k/uL Monocytes # (0-1.0) k/uL Eosinophils # (0-0.7) k/uL Basophils # (0-0.2) k/uL PT 9.8 (9.0-12.0) sec INR 0.9 (<1.2) APTT 24.5 (22.0-30.0) sec Sodium (137-145) mmol/L Potassium (3.5-5.1) mmol/L Chloride (98-107) mmol/L Carbon Dioxide (22-30) mmol/L Anion Gap mmol/L BUN (7-17) mg/dL Creatinine (0.52-1.04) mg/dL Est GFR (CKD-EPI)AfAm (>60 ml/min/1.73 sqM) Est GFR (CKD-EPI)NonAf (>60 ml/min/1.73 sqM) Glucose (74-99) mg/dL Calcium (8.4-10.2) mg/dL Total Bilirubin (0.2-1.3) mg/dL AST (14-36) U/L ALT (9-52) U/L Alkaline Phosphatase (38-126) U/L Troponin I <0.012 (0.000-0.034) ng/mL Total Protein (6.3-8.2) g/dL Albumin (3.5-5.0) g/dL Amylase (30-110) U/L Lipase (23-300) U/L Urine Color Urine Appearance (Clear) Urine pH (5.0-8.0) Ur Specific [place] (1.001-1.035) Urine Protein (Negative) Urine Glucose (UA) (Negative) Urine Ketones (Negative) Urine Blood (Negative) Urine Nitrite (Negative) Urine Bilirubin (Negative) Urine Urobilinogen (<2.0) mg/dL Ur Leukocyte Esterase (Negative) 09/11/18 14:18 EKG shows normal sinus rhythm normal EKG. Ventricular rate of 60 beats were minute. Intervals 150 ms. QS duration 94 ms. QT QTc is 412/438 ms. No evidence of ST elevation or T-wave inversions. - Radiology Data Radiology results: report reviewed Abnormal chest x-ray. No changes. No acute abdomen. No acute changes. Disposition Clinical Impression: Epigastric pain, Anxiety Disposition: HOME SELF-CARE Condition: Good Instructions (If sedation given, give patient instructions): Diet for Stomach Ulcers and Gastritis (ED), Peptic Ulcer (ED) Additional Instructions: Patient should follow-up with your primary care physician. Patient should also follow up with GI doctor. Return to emergency department if any alarming signs or symptoms occur. Patient should be taking the antacid medication. Prescriptions: Sucralfate [Carafate] 1 gm PO ACHS #30 tablet Famotidine [Pepcid] 20 mg PO BID #20 tablet Is patient prescribed a controlled substance at d/c from ED?: No Referrals: Amparo Felder MD [Primary Care Provider] - 1-2 days Andrae Adorno MD [STAFF PHYSICIAN] - 1-2 days Time of Disposition: 15:29
[2018-09-11] MEDS ORDERED: SODIUM CHLORIDE 0.9% 1,000 ML IV STA ×2 (13:42)
[2018-09-11] MEDS ORDERED: PANTOPRAZOLE 40 MG/10 ML VIAL IVP STA (13:42)
[2018-09-11] MEDS ORDERED: KETOROLAC 30 MG/ML 1 ML VIAL IVP STA (13:42)
[2018-09-11 14:14] LABS: Appearance,Urine Clear (Clear); Bilirubin,Urine Negative (Negative); Blood,Urine Negative (Negative); Color,Urine Light Yellow; Glucose,Urine (UA) Negative (Negative); Ketones,Urine Negative (Negative); Leukocyte Esterase,Urine Negative (Negative); Nitrite,Urine Negative (Negative); PH, Urine 6.5 (5.0-8.0); Protein,Urine Negative (Negative); Specific Gravity,Urine 1.006 (1.001-1.035); Urobilinogen,Urine <2.0 mg/dL (<2.0)
[2018-09-11 14:18] LABS: Basophils % (A) 0 %; Eosinophils # (A) 0.2 k/uL (0-0.7); Eosinophils % (A) 2 %; HCT 38.7 % (34.0-46.0); HGB 12.9 gm/dL (11.4-16.0); Lymphocytes # (A) 2.4 k/uL (1.0-4.8); Lymphocytes % (A) 32 %; MCHC 33.4 g/dL (31.0-37.0); Mean Platelet Volume 8.1; Monocytes # (A) 0.5 k/uL (0-1.0); Monocytes % (A) 7 %; Neutrophils % (A) 56 %; Platelet Count 212 k/uL (150-450); RBC 4.16 m/uL (3.80-5.40); RDW 13.2 % (11.5-15.5); WBC 7.3 k/uL (3.8-10.6)
[2018-09-11 14:29] LABS: ALT 24 U/L (9-52); AST 19 U/L (14-36); Albumin 4.4 g/dL (3.5-5.0); Alkaline Phosphatase 75 U/L (38-126); Amylase 47 U/L (30-110); Anion Gap 10 mmol/L; Blood Urea Nitrogen 12 mg/dL (7-17); Calcium 9.8 mg/dL (8.4-10.2); Carbon Dioxide 23 mmol/L (22-30); Chloride 108 mmol/L (98-107); Glucose 87 mg/dL (74-99); Lipase 108 U/L (23-300); Potassium 4.4 mmol/L (3.5-5.1); Sodium 141 mmol/L (137-145); Total Bilirubin 0.5 mg/dL (0.2-1.3); Total Protein 7.7 g/dL (6.3-8.2)
[2018-09-11 14:32] LABS: INR 0.9 (<1.2); Partial Thromboplastin Time 24.5 sec (22.0-30.0); Prothrombin Time 9.8 sec (9.0-12.0)
--- NOTE | 2018-09-11 14:40 | XR ---
EXAMINATION TYPE: XR KUB DATE OF EXAM: 09/11/2018 COMPARISON: NONE HISTORY: Abdominal pain TECHNIQUE: 2 views FINDINGS: 2 upright views were obtained and show no sign of intestinal obstruction or pneumoperitoneu m. Fecal pattern is normal. There are clips from cholecystectomy. There is no sign of a mass. Lung ba ses are clear. There are no pathologic calcifications over the kidneys. IMPRESSION: Nonacute abdomen. No change.
--- NOTE | 2018-09-11 14:41 | XR ---
EXAMINATION TYPE: XR chest 2V DATE OF EXAM: 09/11/2018 COMPARISON: 06/12/2018 HISTORY: Chest pain TECHNIQUE: Frontal and lateral views of the chest are obtained. FINDINGS: Heart and mediastinum are normal. Lungs are clear. Diaphragm is normal. Bony thorax appear s normal. IMPRESSION: Normal chest. No change.
[2018-09-11 15:57] VITALS: BP 133/96; PULSE 71
== END 2018-09-11 15:55 | disposition home or self-care (01) ==
LOC: EC 12:40
DX: F41.9 Anxiety disorder, unspecified (principal); R10.13 Epigastric pain; Z87.891 Personal history of nicotine dependence; Z85.41 Personal history of malignant neoplasm of cervix uteri; Z90.49 Acquired absence of other specified parts of digestive tract; Z90.710 Acquired absence of both cervix and uterus
CPT/HCPCS: 36415; 93005; 80053; 82150; 83690; 84484; 85025; 85610; 85730; 81003; 71046; 74018; 99284; 96374; 96375; 96361 ×2; J1885; C9113

== ENCOUNTER → 2018-09-27 | Outpatient (CLI) | payer OTHER ==
--- NOTE | 2018-09-27 08:53 | CT ---
EXAMINATION TYPE: CT chest w con DATE OF EXAM: 09/27/2018 COMPARISON: 07/31/2017 and 06/22/2012 HISTORY: 33-year-old female follow-up pulmonary nodule TECHNIQUE: Contiguous axial scanning of the chest after the administration of 100 mL of Isovue 300. Coronal/sagittal reconstructions performed. CT DLP: 257.9mGycm. Automatic exposure control utilized for a dose reduction. FINDINGS: Heart normal size without pericardial effusion. Borderline ectasia aortic root at 3.5 cm. There is co nventional branching anatomy. Residual mild thymic tissue in the anterior mediastinum. No thoracic lymphadenopathy. Evaluation of the lungs shows a stable 3 mm right upper lobe pulmonary nodule axial image 18, back to 2011. Minimal areas of subpleural nodularity peripheral right middle lobe and right lower lobe were present previously as well likely representing some subpleural areas of nodular atelectasis or scarring. Als o stable back to 2011. A 4 mm left upper lobe pulmonary nodule axial image 23 was present back in 2011. Postsurgical changes of Loren fundoplication in the upper abdomen. Somewhat low density of the liver may reflect phase of imaging after contrast over fatty infiltration. Cholecystectomy clips are prese nt. Bones: Mild endplate spondylosis midthoracic spine. IMPRESSION: A few scattered 4 mm and smaller pulmonary nodules all stable back to 2012 compatible with a benign e tiology. No acute pulmonary process.
== END | disposition home or self-care (01) ==
LOC: RADCTMAIN 07:01
PROVIDERS: ATTEND Internal Medicine Critical Care Medicine
DX: R91.8 Other nonspecific abnormal finding of lung field (principal)
CPT/HCPCS: 71260; Q9967

== ENCOUNTER 2018-11-29 08:12 | Observation (INO) | payer OTHER ==
[2018-11-29] MEDS ORDERED: SODIUM CHLORIDE 0.9% 1,000 ML IV STA ×2 (08:26)
[2018-11-29] MEDS ORDERED: ONDANSETRON 4 MG/2 ML VIAL IVP STA (08:26)
[2018-11-29] MEDS ORDERED: PANTOPRAZOLE 40 MG/10 ML VIAL IVP STA (08:26)
[2018-11-29] MEDS ORDERED: HYDROmorphone 0.5 MG/0.5 ML SYRINGE IVP STA (08:26)
--- NOTE | 2018-11-29 08:28 | ED ---
Abdominal Pain HPI <Baldemar Baker - Last Filed: 11/29/18 10:38> - General Source: patient, RN notes reviewed, old records reviewed Mode of arrival: ambulatory Limitations: no limitations <Lexi Jeff - Last Filed: 11/29/18 10:57> - General Chief Complaint: Abdominal Pain Stated Complaint: abdominal pain Time Seen by Provider: 11/29/18 08:19 - History of Present Illness Initial Comments: Patient's a 33-year-old female presents emergency department today for evaluation for complaints of diffuse gas pains. Patient states that she's tried [id number] Gas-X with little relief of her symptoms. Patient states that the pain seems to radiate towards her back. She was seeing her chiropractor, but had no change in her symptoms. She reports that she has had some episodes of dry heaving. She is unable to vomit after Loren fundoplication. Patient states that she's had a bowel movement today but she seemed to be normal. Denies any changes in urination. (Lexi Jeff) - Related Data Home Medications Medication Instructions Recorded Confirmed Multivitamins, Thera [Multivitamin 1 tab PO DAILY 05/12/17 11/29/18 (formulary)] Simethicone [Gas-X] 125 mg PO DAILY PRN 11/29/18 11/29/18 Allergies Allergy/AdvReac Type Severity Reaction Status Date / Time No Known Allergies Allergy Verified 11/29/18 08:26 Review of Systems ROS Other: All systems not noted in ROS Statement are negative. <Baldemar Baker - Last Filed: 11/29/18 10:38> ROS Other: All systems not noted in ROS Statement are negative. <Lexi Jeff - Last Filed: 11/29/18 10:57> ROS Statement: Those systems with pertinent positive or pertinent negative responses have been documented in the HPI. Past Medical History Past Medical History: Cancer, GERD/Reflux, Hypertension, Osteoarthritis (OA) Additional Past Medical History / Comment(s): state stable pulmonary nodules on ct scan,Hx stress related hypertension. Hx kidney stones, Hx cervical cancer History of Any Multi-Drug Resistant Organisms: MRSA Date of last positivie culture/infection: 12/25/16 MDRO Source:: Left arm axilla Past Surgical History: Section, Cholecystectomy, Hernia Repair, Hysterectomy, Orthopedic Surgery, Tubal Ligation Additional Past Surgical History / Comment(s): Had plate and 6 screws in left ankle-hardware removed lt ankle August 2016,hernia repairs x 4 umbilical,c sect x3, Loren fundoplication Past Anesthesia/Blood Transfusion Reactions: Family History of Problems w/ Anesthesia, Postoperative Nausea & Vomiting (PONV) Additional Past Anesthesia/Blood Transfusion Reaction / Comment(s): Also mother has PONV, no hx blood transfusion Past Psychological History: Anxiety Smoking Status: Former smoker Past Alcohol Use History: Occasional Past Drug Use History: None Reported - Past Family History Mother Family Medical History: Cancer, Hypertension Additional Family Medical History / Comment(s): Breast Cancer,fadia mastectomy Father Family Medical History: Asthma, Diabetes Mellitus, Hypertension, Rheumatoid Arthritis (RA) <Lexi Jeff - Last Filed: 11/29/18 10:57> General Exam Limitations: no limitations Head exam: Present: atraumatic, normocephalic, normal inspection Eye exam: Present: normal appearance, PERRL, EOMI. Absent: scleral icterus, conjunctival injection, periorbital swelling ENT exam: Present: normal exam, mucous membranes moist Neck exam: Present: normal inspection. Absent: tenderness, meningismus, lymphadenopathy Respiratory exam: Present: normal lung sounds bilaterally. Absent: respiratory distress, wheezes, rales, rhonchi, stridor Cardiovascular Exam: Present: regular rate, normal rhythm, normal heart sounds. Absent: systolic murmur, diastolic murmur, rubs, gallop, clicks GI/Abdominal exam: Present: soft, tenderness (Right lower quadrant left lower quadrant tenderness.), normal bowel sounds. Absent: distended, guarding, rebound, rigid Extremities exam: Present: normal inspection, full ROM, normal capillary refill. Absent: tenderness, pedal edema, joint swelling, calf tenderness Back exam: Present: normal inspection Neurological exam: Present: alert, oriented X3, CN II-XII intact Psychiatric exam: Present: normal affect, normal mood Skin exam: Present: warm, dry, intact, normal color. Absent: rash <Lexi Jeff - Last Filed: 11/29/18 10:57> - General Exam Comments Initial Comments: 33-year-old female. Alert and oriented 3. No significant distress. (Lexi Glez) Course Vital Signs 11/29/18 08:13 Temperature 98.2 F Pulse Rate 87 Respiratory 18 Rate Blood Pressure 144/101 O2 Sat by Pulse 100 Oximetry Medical Decision Making - Lab Data Result diagrams: 11/29/18 08:35 11/29/18 08:35 <Baldemar Baker - Last Filed: 11/29/18 10:38> - Lab Data Result diagrams: 11/29/18 08:35 11/29/18 08:35 - Radiology Data Radiology results: report reviewed <Lexi Jeff - Last Filed: 11/29/18 10:57> - Medical Decision Making Case discussed with practitioner Tomer. Case also discussed with Dr. Adorno, who will admit his patient. Chart and reports reviewed. (Baldemar Baker) 33-year-old female present emergency department today with 2 days of diffuse abdominal pain. She states it seems that she is having increased gas pains. Episodes of dry heaving and she did report normal stool. She denies any fever at this time. On examination she had some right lower quadrant tenderness, and diffuse abdominal tenderness is noted. Patient received blood work. Mild leukocytosis noted. Continue tenderness computed tomography scan was completed. There is evidence of acute appendicitis. Patient was informed of this. She started on Zosyn. Blood cultures completed. Patient case discussed with Dr. Baker who discussed the case with Dr. Adorno who will admit the Patient. (Lexi Jeff) - Lab Data Lab Results 11/29/18 11/29/18 11/29/18 Range/Units 08:00 08:35 08:35 WBC 11.2 H (3.8-10.6) k/uL RBC 4.07 (3.80-5.40) m/uL Hgb 12.8 (11.4-16.0) gm/dL Hct 37.4 (34.0-46.0) % MCV 91.9 (80.0-100.0) fL MCH 31.4 (25.0-35.0) pg MCHC 34.2 (31.0-37.0) g/dL RDW 13.8 (11.5-15.5) % Plt Count 174 (150-450) k/uL Neutrophils % 78 % Lymphocytes % 14 % Monocytes % 5 % Eosinophils % 1 % Basophils % 0 % Neutrophils # 8.8 H (1.3-7.7) k/uL Lymphocytes # 1.6 (1.0-4.8) k/uL Monocytes # 0.6 (0-1.0) k/uL Eosinophils # 0.1 (0-0.7) k/uL Basophils # 0.0 (0-0.2) k/uL Sodium 140 (137-145) mmol/L Potassium 3.7 (3.5-5.1) mmol/L Chloride 107 (98-107) mmol/L Carbon Dioxide 24 (22-30) mmol/L Anion Gap 9 mmol/L BUN 9 (7-17) mg/dL Creatinine 0.70 (0.52-1.04) mg/dL Est GFR (CKD-EPI)AfAm >90 (>60 ml/min/1.73 sqM) Est GFR (CKD-EPI)NonAf >90 (>60 ml/min/1.73 sqM) Glucose 107 H (74-99) mg/dL Calcium 9.3 (8.4-10.2) mg/dL Total Bilirubin 0.7 (0.2-1.3) mg/dL AST 21 (14-36) U/L ALT 19 (9-52) U/L Alkaline Phosphatase 69 (38-126) U/L Troponin I (0.000-0.034) ng/mL Total Protein 7.1 (6.3-8.2) g/dL Albumin 4.3 (3.5-5.0) g/dL Amylase 44 (30-110) U/L Lipase 60 (23-300) U/L Urine Color Yellow Urine Appearance Cloudy H (Clear) Urine pH 6.0 (5.0-8.0) Ur Specific [place] 1.030 (1.001-1.035) Urine Protein Trace H (Negative) Urine Glucose (UA) Negative (Negative) Urine Ketones Negative (Negative) Urine Blood Negative (Negative) Urine Nitrite Negative (Negative) Urine Bilirubin Negative (Negative) Urine Urobilinogen <2.0 (<2.0) mg/dL Ur Leukocyte Esterase Negative (Negative) Urine RBC 1 (0-5) /hpf Urine WBC <1 (0-5) /hpf Ur Squamous Epith Cells 5 H (0-4) /hpf Urine Bacteria Occasional H (None) /hpf Urine Mucus Occasional H (None) /hpf 06/04/19 Range/Units 08:35 WBC (3.8-10.6) k/uL RBC (3.80-5.40) m/uL Hgb (11.4-16.0) gm/dL Hct (34.0-46.0) % MCV (80.0-100.0) fL MCH (25.0-35.0) pg MCHC (31.0-37.0) g/dL RDW (11.5-15.5) % Plt Count (150-450) k/uL Neutrophils % % Lymphocytes % % Monocytes % % Eosinophils % % Basophils % % Neutrophils # (1.3-7.7) k/uL Lymphocytes # (1.0-4.8) k/uL Monocytes # (0-1.0) k/uL Eosinophils # (0-0.7) k/uL Basophils # (0-0.2) k/uL Sodium (137-145) mmol/L Potassium (3.5-5.1) mmol/L Chloride (98-107) mmol/L Carbon Dioxide (22-30) mmol/L Anion Gap mmol/L BUN (7-17) mg/dL Creatinine (0.52-1.04) mg/dL Est GFR (CKD-EPI)AfAm (>60 ml/min/1.73 sqM) Est GFR (CKD-EPI)NonAf (>60 ml/min/1.73 sqM) Glucose (74-99) mg/dL Calcium (8.4-10.2) mg/dL Total Bilirubin (0.2-1.3) mg/dL AST (14-36) U/L ALT (9-52) U/L Alkaline Phosphatase (38-126) U/L Troponin I <0.012 (0.000-0.034) ng/mL Total Protein (6.3-8.2) g/dL Albumin (3.5-5.0) g/dL Amylase (30-110) U/L Lipase (23-300) U/L Urine Color Urine Appearance (Clear) Urine pH (5.0-8.0) Ur Specific [place] (1.001-1.035) Urine Protein (Negative) Urine Glucose (UA) (Negative) Urine Ketones (Negative) Urine Blood (Negative) Urine Nitrite (Negative) Urine Bilirubin (Negative) Urine Urobilinogen (<2.0) mg/dL Ur Leukocyte Esterase (Negative) Urine RBC (0-5) /hpf Urine WBC (0-5) /hpf Ur Squamous Epith Cells (0-4) /hpf Urine Bacteria (None) /hpf Urine Mucus (None) /hpf - Radiology Data EKG shows a sinus rhythm normal EKG. Ventricular rate of 81 beats were minute. Verbal is 158 ms. QRS duration 92 ms. QT QTc is 386/448 ms. Nonspecific abdomen. Occasional air-fluid level in the lower abdomen on the right which could be associated with ileus or enteritis. Stable nonspecific left hemipelvic calcification therefore likely vascular. Acute uncompensated appendicitis. Suspected early fatty replacement of pancreatic head given heterogeneous low-density unchanged from prior without d iscrete ductal dilation. Correlate with amylase or lipase to exclude keratitis. Poorly defined uterus and flexion or cystic change within the ovaries of free fluid. Emergent pelvic ultrasound. Further characterize these findings. (Lexi Jeff) Disposition <Baldemar Baker - Last Filed: 11/29/18 10:38> Is patient prescribed a controlled substance at d/c from ED?: No Time of Disposition: 10:57 <Lexi Jeff - Last Filed: 11/29/18 10:57> Clinical Impression: Acute appendicitis Disposition: ADMITTED IP TO THIS HOSP Condition: Stable Referrals: Rojas Ledesma DO [Doctor of Osteopathic Medicine] - 1-2 days
[2018-11-29 08:52] LABS: Appearance,Urine Cloudy (Clear); Bacteria,Urine Occasional /hpf; Bilirubin,Urine Negative (Negative); Blood,Urine Negative (Negative); Color,Urine Yellow; Glucose,Urine (UA) Negative (Negative); Ketones,Urine Negative (Negative); Leukocyte Esterase,Urine Negative (Negative); Mucus,Urine Occasional /hpf; Nitrite,Urine Negative (Negative); Protein,Urine Trace (Negative); RBC,Urine 1 /hpf (0-5); Squamous Epithelial Cell,Urine 5 /hpf (0-4); Urobilinogen,Urine <2.0 mg/dL (<2.0); WBC,Urine <1 /hpf (0-5)
[2018-11-29 08:57] LABS: ALT 19 U/L (9-52); AST 21 U/L (14-36); African American GFR (CKD) >90 (>60 ml/min/1.73 sqM); Albumin 4.3 g/dL (3.5-5.0); Alkaline Phosphatase 69 U/L (38-126); Amylase 44 U/L (30-110); Anion Gap 9 mmol/L; Blood Urea Nitrogen 9 mg/dL (7-17); Calcium 9.3 mg/dL (8.4-10.2); Carbon Dioxide 24 mmol/L (22-30); Chloride 107 mmol/L (98-107); Glucose 107 mg/dL (74-99); Lipase 60 U/L (23-300); Potassium 3.7 mmol/L (3.5-5.1); Sodium 140 mmol/L (137-145); Total Bilirubin 0.7 mg/dL (0.2-1.3); Total Protein 7.1 g/dL (6.3-8.2)
[2018-11-29 08:58] LABS: Basophils % (A) 0 %; Eosinophils # (A) 0.1 k/uL (0-0.7); Eosinophils % (A) 1 %; HCT 37.4 % (34.0-46.0); HGB 12.8 gm/dL (11.4-16.0); Lymphocytes # (A) 1.6 k/uL (1.0-4.8); Lymphocytes % (A) 14 %; MCH 31.4 pg (25.0-35.0); MCHC 34.2 g/dL (31.0-37.0); MCV 91.9 fL (80.0-100.0); Mean Platelet Volume 7.8; Monocytes # (A) 0.6 k/uL (0-1.0); Monocytes % (A) 5 %; Neutrophils # (A) 8.8 k/uL (1.3-7.7); Neutrophils % (A) 78 %; Platelet Count 174 k/uL (150-450); RBC 4.07 m/uL (3.80-5.40); RDW 13.8 % (11.5-15.5); WBC 11.2 k/uL (3.8-10.6)
--- NOTE | 2018-11-29 09:06 | XR ---
EXAMINATION TYPE: XR KUB DATE OF EXAM: 11/29/2018 COMPARISON: 09/11/2018 HISTORY: Pain TECHNIQUE: One view abdominal series FINDINGS: The osseous structures are intact. The bowel gas pattern is nonspecific. A few air-fluid levels are seen in the right abdomen. Surgical clips in the right upper quadrant. Calcifications the pelvis like ly vascular. Calcification along the lateral margin of the left acetabulum likely related to acetabul ar labral chronic tear. IMPRESSION: 1. Nonspecific abdomen. There is occasional air-fluid level in the lower abdomen on the right which could be associated with an ileus or enteritis correlate clinically. 2. Stable nonspecific left hemipelvic calcification and therefore likely vascular.
--- NOTE | 2018-11-29 10:26 | CT ---
EXAMINATION TYPE: CT abdomen pelvis w con DATE OF EXAM: 11/29/2018 HISTORY: Pelvic pressure and bloating. History of cholecystectomy, , hernia repair, tubal li gation, and Loren fundoplication. CT DLP: 939.2mGycm Automated Exposure Control for Dose Reduction was Utilized. CONTRAST: CT scan of the abdomen and pelvis is performed with IV Contrast, patient injected with 100 mL of Isov ue 300. COMPARISON: 11/02/2017. FINDINGS: LUNG BASES: Pleural based nodule or atelectasis is partially visualized in the posterior right lower lobe on image 1 measuring 3 mm.. LIVER/GB: Hepatic parenchyma is diffusely hypoattenuated in comparison to that of the spleen, most co mmonly seen in hepatic steatosis. This finding limits evaluation for hepatic masses. A more focal wed ge-shaped area of hypoattenuation is seen near the fissure for the falciform ligament on image 19 fran suring 1.1 cm as seen on the prior of 11/02/2017 and could represent more focal fatty infiltration. No intrahepatic biliary ductal dilatation. Gallbladder is surgically absent. PANCREAS: There is suspected early fatty infiltration/fatty replacement of the pancreatic head is the re is ill-defined low density that is unchanged from the prior without ductal dilatation.. SPLEEN: No significant abnormality is seen. ADRENALS: No significant abnormality is seen. KIDNEYS: No significant abnormality is seen. BOWEL: There is focal fat stranding in the right lower quadrant with prominent right lower quadrant l ymph nodes and periappendiceal fat stranding within the enlarged appendix measuring up to 1.4 cm. Nikole ris is seen within the appendix lumen. There has been prior Loren fundoplication. UTERUS/ADNEXA: Follicular and/or cystic changes are seen of the ovaries a small amount of free fluid in the posterior cul-de-sac, likely physiologic in nature uterus is ill-defined. Pelvic ultrasound co uld be considered to the uterus on a nonemergent basis. LYMPH NODES: No greater than 1cm abdominal or pelvic lymph nodes are appreciated. OSSEOUS STRUCTURES: No significant abnormality is seen. OTHER: Abdominal aorta is of normal course and caliber. IMPRESSION: 1. Acute uncomplicated appendicitis. Findings were communicated with the ER provider Jono at 10:23 A M on 11/29/[address] Jhaveri. 2. Suspected early fatty replacement of the pancreatic head given diffuse heterogenous low density un changed from the prior without discrete ductal dilatation. Correlation with amylase and lipase could be performed to exclude much less likely pancreatitis. 3. Poorly defined uterus and follicular and/or cystic changes of the ovaries with free fluid. Nonemer gent pelvic ultrasound could further characterize these findings.
[2018-11-29] MEDS ORDERED: PIPERACILLIN-TAZOBACTAM 3.375 GM in SODIUM CHLORIDE 0.9% 100 ML IVPB STA (10:29)
[2018-11-29] MEDS ORDERED: ONDANSETRON 4 MG/2 ML VIAL IVP PRN (10:58)
[2018-11-29] MEDS ORDERED: IBUPROFEN 400 MG TAB PO PRN (10:58)
[2018-11-29] MEDS ORDERED: HYDROmorphone 0.5 MG/0.5 ML SYRINGE IVP PRN (10:58)
[2018-11-29] MEDS ORDERED: KETOROLAC 30 MG/ML 1 ML VIAL IVP PRN (10:58)
[2018-11-29] MEDS ORDERED: NALOXONE 0.4 MG/ML 1 ML VIAL IV PRN ×2 (10:58→12:43)
[2018-11-29] MEDS ORDERED: MORPHINE SULFATE 4 MG/ML SYRINGE IV PRN (10:58)
[2018-11-29] MEDS ORDERED: ACETAMINOPHEN TAB 325 MG TAB PO PRN (10:58)
[2018-11-29] MEDS ORDERED: SODIUM CHLORIDE 0.9% 1,000 ML IV SCH (11:00)
[2018-11-29] MEDS ORDERED: IV FLUID CONTINUATION 1,000 ML IV ONE (11:12)
--- NOTE | 2018-11-29 11:17 | P.GSHP ---
History of Present Illness H&P Date: 11/29/18 Chief Complaint: abdominal pain CHIEF COMPLAINT: Abdominal pain HISTORY OF PRESENT ILLNESS: 33-year-old female who presented to emergency room with chief complaint of abdominal pain. Patient reports the pain is mostly in the right lower quadrant and radiates to her back. She is currently rating her pain a 10 out of 10. She reports nausea. No episodes of vomiting. No diarrhea or constipation. No reports of fevers at home. PAST MEDICAL HISTORY: See list. PAST SURGICAL HISTORY: See list. SOCIAL HISTORY: No illicit drug use. REVIEW OF SYSTEMS: CONSTITUTIONAL: Denies fever or chills. HEENT: Denies blurred vision, vision changes, or eye pain. Denies hemoptysis CARDIOVASCULAR: Denies chest pain or pressure. RESPIRATORY: No shortness of breath. GASTROINTESTINAL: Refer to [facility] for pertinent findings HEMATOLOGIC: Denies bleeding disorders. GENITOURINARY: Denies any blood in urine. SKIN: Denies pruitis. Denies rash. PHYSICAL EXAM: VITAL SIGNS: Reviewed. GENERAL: Well-developed in no acute distress. HEENT: No sclera icterus. Extraocular movements grossly intact. Moist buccal mucosa. Head is atraumatic, normocephalic. ABDOMEN: Soft. Nondistended. Tenderness to right lower quadrant. NEUROLOGIC: Alert and oriented. Cranial nerves II through XII grossly intact. LABORATORY DATA: WBC 11.2. Hemoglobin 12.8. ASSESSMENT: 1. Abdominal pain 2. Acute appendicitis PLAN: NPO. Continue antibiotics. IV Fluids. Pain control. Monitor labs. Patient to undergo laparoscopic appendectomy today with Dr. Adorno. Patient agreeable. Nurse practitioner note has been reviewed by physician. Signing provider agrees with the documented findings, assessment, and plan of care. Past Medical History Past Medical History: Cancer, GERD/Reflux, Hypertension, Osteoarthritis (OA) Additional Past Medical History / Comment(s): state stable pulmonary nodules on ct scan,Hx stress related hypertension. Hx kidney stones, Hx cervical cancer History of Any Multi-Drug Resistant Organisms: MRSA Date of last positivie culture/infection: 12/25/16 MDRO Source:: Left arm axilla Past Surgical History: Section, Cholecystectomy, Hernia Repair, Hysterectomy, Orthopedic Surgery, Tubal Ligation Additional Past Surgical History / Comment(s): Had plate and 6 screws in left ankle-hardware removed lt ankle August 2016,hernia repairs x 4 umbilical,c sect x3, Loren fundoplication Past Anesthesia/Blood Transfusion Reactions: Family History of Problems w/ Anesthesia, Postoperative Nausea & Vomiting (PONV) Additional Past Anesthesia/Blood Transfusion Reaction / Comment(s): Also mother has PONV, no hx blood transfusion Past Psychological History: Anxiety Smoking Status: Former smoker Past Alcohol Use History: Occasional Past Drug Use History: None Reported - Past Family History Mother Family Medical History: Cancer, Hypertension Additional Family Medical History / Comment(s): Breast Cancer,fadia mastectomy Father Family Medical History: Asthma, Diabetes Mellitus, Hypertension, Rheumatoid Arthritis (RA) Medications and Allergies Home Medications Medication Instructions Recorded Confirmed Type Multivitamins, Thera [Multivitamin 1 tab PO DAILY 05/12/17 11/29/18 History (formulary)] Simethicone [Gas-X] 125 mg PO DAILY PRN 11/29/18 11/29/18 History Allergies Allergy/AdvReac Type Severity Reaction Status Date / Time No Known Allergies Allergy Verified 11/29/18 11:01 Surgical - Exam Vital Signs Temp Pulse Resp BP Pulse Ox 98.2 F 87 18 144/101 100 11/29/18 08:13 11/29/18 08:13 11/29/18 08:13 11/29/18 08:13 11/29/18 08:13 Results - Labs 11/29/18 08:35 11/29/18 08:35 Abnormal Lab Results - Last 24 Hours (Table) 11/29/18 11/29/18 11/29/18 Range/Units 08:00 08:35 08:35 WBC 11.2 H (3.8-10.6) k/uL Neutrophils # 8.8 H (1.3-7.7) k/uL Glucose 107 H (74-99) mg/dL Urine Appearance Cloudy H (Clear) Urine Protein Trace H (Negative) Ur Squamous Epith Cells 5 H (0-4) /hpf Urine Bacteria Occasional H (None) /hpf Urine Mucus Occasional H (None) /hpf Diabetes panel 11/29/18 Range/Units 08:35 Sodium 140 (137-145) mmol/L Potassium 3.7 (3.5-5.1) mmol/L Chloride 107 (98-107) mmol/L Carbon Dioxide 24 (22-30) mmol/L BUN 9 (7-17) mg/dL Creatinine 0.70 (0.52-1.04) mg/dL Glucose 107 H (74-99) mg/dL Calcium 9.3 (8.4-10.2) mg/dL AST 21 (14-36) U/L ALT 19 (9-52) U/L Alkaline Phosphatase 69 (38-126) U/L Total Protein 7.1 (6.3-8.2) g/dL Albumin 4.3 (3.5-5.0) g/dL Calcium panel 11/29/18 Range/Units 08:35 Calcium 9.3 (8.4-10.2) mg/dL Albumin 4.3 (3.5-5.0) g/dL Pituitary panel 11/29/18 Range/Units 08:35 Sodium 140 (137-145) mmol/L Potassium 3.7 (3.5-5.1) mmol/L Chloride 107 (98-107) mmol/L Carbon Dioxide 24 (22-30) mmol/L BUN 9 (7-17) mg/dL Creatinine 0.70 (0.52-1.04) mg/dL Glucose 107 H (74-99) mg/dL Calcium 9.3 (8.4-10.2) mg/dL Adrenal panel 11/29/18 Range/Units 08:35 Sodium 140 (137-145) mmol/L Potassium 3.7 (3.5-5.1) mmol/L Chloride 107 (98-107) mmol/L Carbon Dioxide 24 (22-30) mmol/L BUN 9 (7-17) mg/dL Creatinine 0.70 (0.52-1.04) mg/dL Glucose 107 H (74-99) mg/dL Calcium 9.3 (8.4-10.2) mg/dL Total Bilirubin 0.7 (0.2-1.3) mg/dL AST 21 (14-36) U/L ALT 19 (9-52) U/L Alkaline Phosphatase 69 (38-126) U/L Total Protein 7.1 (6.3-8.2) g/dL Albumin 4.3 (3.5-5.0) g/dL
[2018-11-29] MEDS ORDERED: HEPARIN SODIUM,PORCINE 5,000 UNIT/ML 1 ML VIAL SQ ONE (11:35)
[2018-11-29] MEDS ORDERED: ONDANSETRON 4 MG/2 ML VIAL IVP ONE (11:45)
[2018-11-29] MEDS ORDERED: DEXAMETHASONE SOD PHOSPHATE 10 MG/ML 1 ML VIAL IV ONE (11:48)
[2018-11-29] MEDS ORDERED: fentaNYL (PF) 50 MCG/ML 2 ML AMP IVP ONE (11:54)
[2018-11-29] MEDS ORDERED: ROCURONIUM BROMIDE 10 MG/ML 10 ML VIAL IV ONE (12:02)
[2018-11-29] MEDS ORDERED: PROPOFOL 10 MG/ML 20 ML VIAL IV ONE (12:02)
[2018-11-29] MEDS ORDERED: fentaNYL (PF) 50 MCG/ML 2 ML AMP ONE (12:02)
[2018-11-29] MEDS ORDERED: BUPIVACAIN-EPI 0.25%-1:200,000 30 ML VIAL SQ ONE ×2 (12:02→12:24)
[2018-11-29] MEDS ORDERED: LIDOCAINE 1% INJ 10MG/ML (20 ML MDV) ONE (12:02)
[2018-11-29] MEDS ORDERED: NEOSTIGMINE 1 MG/ML 10 ML VIAL ONE (12:02)
[2018-11-29] MEDS ORDERED: ONDANSETRON 4 MG/2 ML VIAL ONE (12:02)
[2018-11-29] MEDS ORDERED: GLYCOPYRROLATE 0.2 MG/ML 2 ML VIAL ONE (12:02)
[2018-11-29] MEDS ORDERED: MIDAZOLAM 2 MG/2 ML VIAL ONE (12:02)
[2018-11-29] MEDS ORDERED: KETOROLAC 30 MG/ML 1 ML VIAL ONE (12:02)
[2018-11-29] MEDS ORDERED: LACTATED RINGERS 1,000 ML IV ONE ×2 (12:42→12:43)
--- NOTE | 2018-11-29 12:42 | P.OP ---
Date of Procedure: 11/29/18 Preoperative Diagnosis: Acute appendicitis Postoperative Diagnosis: Acute appendicitis Procedure(s) Performed: Laparoscopic appendectomy Anesthesia: ELLIOTT Surgeon: Andrae Adorno Estimated Blood Loss (ml): 5 Pathology: other (Appendix) Condition: stable Disposition: PACU Description of Procedure: HThe patient's placed on the operating table in the supine position. The patient received general anesthesia. The abdomen was prepped and draped in the usual sterile fashion. The skin was anesthetized 1% local Xylocaine at the trocar sites. Using an 11 blade the skin was incised at the umbilicus. The umbilicus was grasped with a Ayla clamp and then a Veress needle was placed into the peritoneal cavity. Position of the Veress needle was confirmed with positive drop test. After adequate insufflation a 5 mm trocar was placed into the peritoneal cavity. The abdomen was further insufflated. And then the laparoscope was placed in the peritoneal cavity. Next a 5 mm trocar was placed in the midline suprapubic position. And then a 10 mm trocar was placed in the midline epigastric position. The patient was rotated with the right side up and in Trendelenburg. The appendix was visualized. The appendix appeared to be inflamed. The appendix was grasped and then using the Harmonic scissors the mesoappendix was divided. A PDS Endoloop was then placed around the base of the appendix. And then the appendix was divided using Harmonic scissors. The appendix was placed into an Endo Catch and brought out through the 10 mm trocar site. The abdomen was irrigated. There is no bleeding seen. The trochars withdrawn. The skin was closed interrupted 3-0 Monocryl suture. Dermabond dressing was applied. Patient was sent to recovery room in stable condition.
[2018-11-29] MEDS ORDERED: HYDROcodone/APAP 5-325MG 1 EACH TAB PO PRN (12:43)
[2018-11-29] MEDS ORDERED: METOCLOPRAMIDE 5 MG/ML 2 ML VIAL IVP PRN (12:43)
[2018-11-29] MEDS ORDERED: HYDROmorphone 1 MG/ML 1 ML SYRINGE IVP ONE ×4 (13:10→13:45)
[2018-11-29] MEDS ORDERED: HYDROmorphone 0.5 MG/0.5 ML SYRINGE ONE (15:45)
[2018-11-29] MEDS ORDERED: HEPARIN SODIUM,PORCINE 5,000 UNIT/ML 1 ML VIAL SQ SCH (16:00)
[2018-11-29] MEDS: PIPERACILLIN-TAZOBACTAM 3.375 GM in SODIUM CHLORIDE 0.9% 100 ML IVPB SCH (18:23)
[2018-11-29] MEDS: HYDROmorphone 0.5 MG/0.5 ML SYRINGE IVP PRN ×2 (19:22→23:14)
[2018-11-29 20:03] VITALS: RESP 16
[2018-11-30] MEDS: HYDROmorphone 0.5 MG/0.5 ML SYRINGE IVP PRN (02:42)
[2018-11-30] MEDS: PIPERACILLIN-TAZOBACTAM 3.375 GM in SODIUM CHLORIDE 0.9% 100 ML IVPB SCH ×2 (02:43→07:47)
--- NOTE | 2018-11-30 07:39 | CONS ---
CONSULTATION DATE OF SERVICE: 11/29/2018 REASON FOR CONSULTATION: Advice regarding hypertension and other multiple medical issues requested by Dr. Adorno. HISTORY OF PRESENT ILLNESS: This is a 33-year-old woman with a past medical history of GERD, hypertension, DJD, history of cervical cancer being followed by Dr. Felder in the outpatient setting, was admitted after abdominal pain. Patient underwent laparoscopic appendectomy by Dr. Adorno for acute appendicitis. The patient is complaining of yellowish skin coloration, otherwise apart from some possible abdominal pain. There is no history of fever, chills, rigors. No history of headache, loss of consciousness, chest pain, shortness of breath, hematochezia or melena at this time. PAST MEDICAL HISTORY: GERD, hypertension, DJD, history of cervical cancer, history of MRSA, history of cholecystectomy, history of anxiety. MEDICATIONS ARE: Gas-X 125 mg daily p.r.n., multivitamin 1 p.o. daily. ALLERGIES: None. FAMILY HISTORY: History of cancer, hypertension, breast cancer with bilateral mastectomies. SOCIAL HISTORY: Previous history of smoking. Occasional alcohol intake. REVIEW OF SYSTEMS: ENT: No diminished hearing or vision. CARDIOVASCULAR: No angina or palpitations. RESPIRATION: No cough. GI: As mentioned earlier. : No dysuria. NERVOUS SYSTEM: No numbness or weakness. ALLERGY/IMMUNOLOGY: No asthma or hay fever. MUSCULOSKELETAL: As mentioned earlier. HEMATOLOGY: No history of anemia. ENDOCRINE: No history of diabetes or hypothyroidism. CONSTITUTIONAL: As mentioned earlier. DERMATOLOGY: Negative. RHEUMATOLOGY: Negative. PSYCHIATRY: As mentioned earlier. PHYSICAL EXAMINATION: Patient is alert and oriented x3. Pulse 76, blood pressure 133/79, respirations 16, temperature 98.6, pulse ox 94% on room air. HEENT: Conjunctivae normal, oral mucosa moist. NECK: No jugular venous distention. No carotid bruit. No lymph node enlargement. No thyroid enlargement. CARDIOVASCULAR: S1, S2, muffled. No S3, no S4. RESPIRATION: Breath sounds diminished at the bases. No rhonchi. No crackles. ABDOMEN: Soft, status post laparoscopic surgery. LEGS: No edema. No swelling. NERVOUS SYSTEM: Higher functions as mentioned earlier, moves all 4 limbs. No focal motor or sensory deficit. LYMPHATICS: None. SKIN: No ulcer, rash, bleeding. JOINTS: No active deforming arthropathy. LABS: WBC 11.8, hemoglobin is 12.8. ASSESSMENT: 1. Acute appendicitis, status post laparoscopic appendectomy. 2. Increased WBC. 3. History of hypertension. 4. History of degenerative joint disease. 5. History of cervical cancer. 6. History of stable pulmonary nodules. 7. History of nephrolithiasis. 8. History of anxiety. 9. Remote history of nicotine dependence. RECOMMENDATION: This is a 33-year-old woman who presented with multiple medical issues, at this time I recommend to continue the current medication, continue symptomatic treatment. DVT prophylaxis. Incentive spirometry. Blood pressure is well maintained at this time. Will continue to monitor and the LFTs are normal. There is no evidence of jaundice or any hepatic dysfunction. Patient may be asked to follow with Dr. Felder closely after discharge. Thank you, Dr. Adorno for letting us participate in the care of this patient. MMODL / IJN: [id number] /
[2018-11-30 08:47] LABS: Basophils % (A) 0 %; Eosinophils % (A) 0 %; HCT 29.1 % (34.0-46.0); Lymphocytes # (A) 1.4 k/uL (1.0-4.8); Lymphocytes % (A) 17 %; MCH 31.6 pg (25.0-35.0); MCHC 33.5 g/dL (31.0-37.0); MCV 94.3 fL (80.0-100.0); Mean Platelet Volume 8.2; Monocytes # (A) 0.5 k/uL (0-1.0); Monocytes % (A) 6 %; Neutrophils # (A) 6.5 k/uL (1.3-7.7); Neutrophils % (A) 76 %; Platelet Count 130 k/uL (150-450); RBC 3.09 m/uL (3.80-5.40); RDW 12.9 % (11.5-15.5); WBC 8.6 k/uL (3.8-10.6)
[2018-11-30 08:49] LABS: African American GFR (CKD) >90 (>60 ml/min/1.73 sqM); Anion Gap 4 mmol/L; Blood Urea Nitrogen 8 mg/dL (7-17); Calcium 8.5 mg/dL (8.4-10.2); Carbon Dioxide 27 mmol/L (22-30); Chloride 107 mmol/L (98-107); Glucose 109 mg/dL (74-99); Potassium 3.7 mmol/L (3.5-5.1); Sodium 138 mmol/L (137-145)
[2018-11-30 09:00] LABS: HGB 9.7 gm/dL (11.4-16.0)
[2018-11-30] MEDS ORDERED: ENOXAPARIN 40 MG/0.4 ML SYRINGE SQ SCH (09:00)
[2018-11-30] MEDS ORDERED: PANTOPRAZOLE 40 MG/10 ML VIAL IV SCH (09:00)
[2018-11-30 09:55] VITALS: BP 105/65; PULSE 70; TEMP 97.8
--- NOTE | 2018-11-30 10:43 | P.DS ---
Providers Date of admission: 11/29/18 10:58 Expected date of discharge: 11/30/18 Attending physician: Andrae Adorno Consults: 11/29/18 12:43 Consult Physician Routine Consulting Provider: Caro Chris Consult Reason/Comments: Medical management Do you want consulting provider notified?: Yes Primary care physician: Emerita Christensen [facility] Course: 33-year-old female who presented to emergency room with chief complaint of abdominal pain. Patient reports the pain is mostly in the right lower quadrant and radiates to her back. Patient was found to have acute appendicitis. Patient underwent laparoscopic appendectomy on 11/29/2018. Patient is doing well postoperative. She is tolerating diet. Vital signs have been stable. Pain is controlled on oral medications. She is stable for discharge home today per Dr. Adorno. Please see EMR for further hospital course details. Discharge diagnosis: 1. Abdominal pain 2. Acute appendicitis Nurse practitioner note has been reviewed by physician. Signing provider agrees with the documented findings, assessment, and plan of care. Patient Condition at Discharge: Stable Plan - Discharge Summary Discharge Rx Participant: No New Discharge Prescriptions: New Hydrocodone/Acetaminophen [[place] 5-325] 1 tab PO Q4HR PRN 3 Days #18 tab PRN Reason: Pain No Action Multivitamins, Thera [Multivitamin (formulary)] 1 tab PO DAILY Simethicone [Gas-X] 125 mg PO DAILY PRN PRN Reason: Gi Upset Discharge Medication List Multivitamins, Thera [Multivitamin (formulary)] 1 tab PO DAILY 05/12/17 [History] Simethicone [Gas-X] 125 mg PO DAILY PRN 11/29/18 [History] Hydrocodone/Acetaminophen [[place] 5-325] 1 tab PO Q4HR PRN 3 Days #18 tab 11/30/18 [Rx] Follow up Appointment(s)/Referral(s): Amparo Felder MD [Primary Care Provider] - 1 Week Andrae Adorno MD [STAFF PHYSICIAN] - 1 Week (December 08 at 1:20pm) Activity/Diet/Wound Care/Special Instructions: No driving while taking [place] No lifting over 10 pounds You may shower. No soaking or tub baths Very light activity until you are reevaluated at your follow up appointment with your surgeon FOLLOW UP SCHEDULED, SOONER IF PROBLEMS OR CONCERNS. REFER TO SURGICAL HANDOUT ON INFECTION.
--- NOTE | 2018-11-30 17:24 | PN ---
PROGRESS NOTE DATE OF SERVICE: 11/30/2018 This 33-year-old woman who was admitted after surgery for appendicitis is improving significantly. No chest pain. No palpitations. No fever. LFTs are normal. On exam, alert and oriented x3. Pulse 70, blood pressure 105/65, respirations 16, temperature 97.8, pulse ox 96% on room air. HEENT: Conjunctivae normal. NECK: No jugular venous distention. CARDIOVASCULAR SYSTEM: S1, S2 muffled. RESPIRATORY SYSTEM: Breath sounds diminished at the bases. No rhonchi. No crackles. ABDOMEN: Soft. Postoperative tenderness. Otherwise no guarding or rigidity. No mass palpable. LEGS: No edema. No swelling. NERVOUS SYSTEM: No focal deficit. LABS: WBC 8.6, hemoglobin 9.7. Other labs are noted. ASSESSMENT: 1. Acute appendicitis, status post laparoscopic appendectomy. 2. Increased white count. 3. Hypertension. 4. History of degenerative joint disease. 5. History of cervical cancer. 6. History of stable pulmonary nodules. 7. History of nephrolithiasis. 8. History of anxiety. 9. Remote history of nicotine dependence. RECOMMENDATIONS AND DISCUSSION: I recommend to continue current medications, continue with the monitoring, symptomatic treatment. Recommend continuing with incentive spirometry. Closely follow with Dr. Felder in the office setting. Further recommendations to follow. MMODL / IJN: [id number] /
== END 2018-11-30 12:30 | disposition home or self-care (01) ==
LOC: EC 08:12 → 4SSUR 10:58 → 6PED 16:03
PROVIDERS: ADMIT Surgery; ATTEND Surgery
DX: K35.80 Unspecified acute appendicitis (principal); I10 Essential (primary) hypertension; K21.9 Gastro-esophageal reflux disease without esophagitis; M19.90 Unspecified osteoarthritis, unspecified site; F41.9 Anxiety disorder, unspecified; R91.8 Other nonspecific abnormal finding of lung field; Z86.14 Personal history of Methicillin resistant Staphylococcus aureus infection; Z85.41 Personal history of malignant neoplasm of cervix uteri; Z87.442 Personal history of urinary calculi; Z90.49 Acquired absence of other specified parts of digestive tract; Z90.710 Acquired absence of both cervix and uterus; Z98.51 Tubal ligation status; Z87.891 Personal history of nicotine dependence; Z82.49 Family history of ischemic heart disease and other diseases of the circulatory system; Z80.3 Family history of malignant neoplasm of breast
CPT/HCPCS: 44970; 96372; 96361; 96374; 96375; 99285; 36415; 93005; 88304; 80053; 80048; 82150; 83690; 84484; 85025 ×2; 81001; 87040; 74018; 74177; G0378 ×2; J2543 ×2; J2250; J1644; J1100; J2710; J2405; J2001; J1650; J3010; J1885; J1170 ×3; J2704; C9113 ×2; Q9967

== ENCOUNTER 2018-12-04 16:34 | Emergency (ER) | payer OTHER ==
[2018-12-04 16:52] VITALS: RESP 18; TEMP 98.8
--- NOTE | 2018-12-04 17:37 | ED ---
Recheck HPI - General Chief Complaint: Recheck/Abnormal Lab/Rx Stated Complaint: HTN/[facility] Time Seen by Provider: 12/04/18 17:08 Source: patient, RN notes reviewed Mode of arrival: ambulatory Limitations: no limitations - History of Present Illness Initial Comments: This a 33-year-old female who just had a laparoscopic appendectomy done 5 days ago who presents with complaints of back pain radiates to her mid sternum. It is intermittent somewhat dull and achy [id number] in severity when it comes on it hasn't happened for a while now. She also states she's been bloated and was found have a blood pressure 181/102 when she was at the outpatient clinic. She was sent here for further evaluation she denies any fevers chills nausea vomiting sweats or other symptoms other than those already stated. He has a history of multiple surgeries including hysterectomy 3 C-sections and Harish fundoplication and hernia repair. No other modifying factors at this time she states she was taking pain medication for about a day he would've made her feel bad as she quit taking it her pain is not an issue she states. MD Complaint: other - Related Data Home Medications Medication Instructions Recorded Confirmed Multivitamins, Thera [Multivitamin 1 tab PO DAILY 05/12/17 12/04/18 (formulary)] Simethicone [Gas-X] 125 mg PO DAILY PRN 11/29/18 12/04/18 Ibuprofen [Motrin] 800 mg PO BID PRN 12/04/18 12/04/18 Previous Rx's Medication Instructions Recorded Ibuprofen 800 mg PO Q6HR PRN #20 tablet 12/04/18 Allergies Allergy/AdvReac Type Severity Reaction Status Date / Time No Known Allergies Allergy Verified 12/04/18 17:33 Review of Systems ROS Statement: Those systems with pertinent positive or pertinent negative responses have been documented in the HPI. ROS Other: All systems not noted in ROS Statement are negative. Past Medical History Past Medical History: Cancer, GERD/Reflux, Hypertension, Osteoarthritis (OA) Additional Past Medical History / Comment(s): Cervical cancer, stress induced htn, stable pulmonary nodules, kidney stone-pt passed on her own, arhtritis bilateral ankle. History of Any Multi-Drug Resistant Organisms: MRSA Date of last positivie culture/infection: 12/25/16 MDRO Source:: Left arm axilla Past Surgical History: Section, Cholecystectomy, Hernia Repair, Hysterectomy, Orthopedic Surgery, Tubal Ligation Additional Past Surgical History / Comment(s): L ankle fracture with plate/screws since removed, EGD, harish fudoplication, C-sections x3, 3 umbilical hernia repairs Past Anesthesia/Blood Transfusion Reactions: Family History of Problems w/ Anesthesia, Postoperative Nausea & Vomiting (PONV) Additional Past Anesthesia/Blood Transfusion Reaction / Comment(s): Pt has PONV as well as her mother has PONV. Pt is clausterphobic Past Psychological History: Anxiety Smoking Status: Former smoker Past Alcohol Use History: None Reported Past Drug Use History: None Reported - Past Family History Mother Family Medical History: Cancer, Hypertension Additional Family Medical History / Comment(s): Breast cancer with bilateral mastectomies-now has metastasis. Father Family Medical History: Asthma, Diabetes Mellitus, Hypertension, Rheumatoid Arthritis (RA) General Exam - General Exam Comments Initial Comments: This is a well-developed well-nourished awake alert oriented 3 female Limitations: no limitations General appearance: alert, in no apparent distress Head exam: Present: atraumatic, normocephalic, normal inspection Eye exam: Present: normal appearance, PERRL, EOMI. Absent: scleral icterus, conjunctival injection, periorbital swelling ENT exam: Present: normal exam, mucous membranes moist Neck exam: Present: normal inspection, full ROM, other (No stridor JVD or bruits). Absent: tenderness, meningismus, lymphadenopathy Respiratory exam: Present: normal lung sounds bilaterally. Absent: respiratory distress, wheezes, rales, rhonchi, stridor Cardiovascular Exam: Present: regular rate, normal rhythm, normal heart sounds. Absent: systolic murmur, diastolic murmur, rubs, gallop, clicks GI/Abdominal exam: Present: soft, normal bowel sounds, other (Well-healing surgical sites no evidence of any wound dehiscence no drainage no erythema. Minimal discomfort.). Absent: distended, tenderness, guarding, rebound, rigid Rectal exam: Present: deferred Extremities exam: Present: normal inspection, full ROM, normal capillary refill. Absent: tenderness, pedal edema, joint swelling, calf tenderness Back exam: Present: normal inspection Neurological exam: Present: alert, oriented X3, CN II-XII intact Psychiatric exam: Present: normal affect, normal mood Skin exam: Present: warm, dry, intact, normal color. Absent: rash Course Vital Signs 12/04/18 16:49 Temperature 98.8 F Pulse Rate 64 Respiratory 18 Rate Blood Pressure 174/98 O2 Sat by Pulse 100 Oximetry Medical Decision Making - Medical Decision Making I did discuss findings the patient presentation is consistent with chest wall pain patient be discharged on anti-inflammatory she is follow-up with her doctor return when necessary she is not having trouble bowel movements she was nothing by mouth for several days this time no other medication is indicated - EKG Data EKG shows normal: sinus rhythm (EKG shows normal sinus rhythm of 60 VA interval 154 QRS 94 QT since QTC 414/414 no acute changes.) - Radiology Data Radiology results: report reviewed (Did review the imaging and report evidence of pleural reaction the left lower base no other acute findings.), image reviewed Disposition Clinical Impression: Chest wall pain Disposition: HOME SELF-CARE Condition: Good Instructions (If sedation given, give patient instructions): Chest Wall Pain (ED) Prescriptions: Ibuprofen 800 mg PO Q6HR PRN #20 tablet PRN Reason: Pain Is patient prescribed a controlled substance at d/c from ED?: No Referrals: Amparo Felder MD [Primary Care Provider] - 1-2 days
--- NOTE | 2018-12-04 18:01 | XR ---
EXAMINATION TYPE: XR chest 2V DATE OF EXAM: 12/04/2018 COMPARISON: 09/11/2018 HISTORY: Cough TECHNIQUE: Frontal and lateral views of the chest are obtained. FINDINGS: Heart and mediastinum are normal. There is mild blunting left costophrenic angle. Lungs ar e clear of consolidation. Bony thorax is intact. IMPRESSION: There is new pleural reaction and fluid at the left lateral lung base compared to old ex am. Normal heart.
[2018-12-04 18:55] VITALS: BP 154/103; PULSE 65
== END 2018-12-04 18:30 | disposition home or self-care (01) ==
LOC: EC 16:34
DX: R07.89 Other chest pain (principal); M19.90 Unspecified osteoarthritis, unspecified site; Z86.14 Personal history of Methicillin resistant Staphylococcus aureus infection; Z85.41 Personal history of malignant neoplasm of cervix uteri; Z87.891 Personal history of nicotine dependence; Z90.49 Acquired absence of other specified parts of digestive tract; Z90.710 Acquired absence of both cervix and uterus
CPT/HCPCS: 71046; 93005; 99283

== ENCOUNTER 2018-12-26 06:00 | Emergency (ER) | payer OTHER ==
[2018-12-26 06:07] VITALS: RESP 18
[2018-12-26] MEDS ORDERED: KETOROLAC 30 MG/ML 1 ML VIAL IVP STA (06:53)
[2018-12-26] MEDS ORDERED: SODIUM CHLORIDE 0.9% 1,000 ML IV STA (06:53)
--- NOTE | 2018-12-26 06:59 | ED ---
Abdominal Pain HPI - General Chief Complaint: Abdominal Pain Stated Complaint: Abdominal Pain Time Seen by Provider: 12/26/18 06:37 Source: patient Mode of arrival: ambulatory Limitations: no limitations - History of Present Illness Initial Comments: Bridgette is a 33-year-old female who underwent a laparoscopic appendectomy 3 weeks ago. Patient reports she did quite well in the postoperative period, she doesn't do well with [place] as a pain medication so she manage her pain with Motrin. Patient reports that up until 3 days ago she felt like she was requiring quite well. The swelling of the incisions had gone down she's been eating and drinking normally she's been having normal bowel movements. Patient reports that for the past 3 days she's been feeling a cramping aching pain in her abdomen, pain with deep inspiration, occasional pain radiating to her right shoulder similar to what she is parents in the immediate postoperative period. This pain is been persistent for 3 days duration and patient thought that this was odd considering that she is now 3 weeks postoperative so she came to the ER for evaluation. Patient has had no nausea, no vomiting, no diarrhea, she reports that her stools have been a little firmer than usual. She's had no fevers chills dysuria or change in bladder habits. - Related Data Home Medications Medication Instructions Recorded Confirmed Multivitamins, Thera [Multivitamin 1 tab PO DAILY 05/12/17 12/26/18 (formulary)] Atenolol [Tenormin] 12.5 mg PO DAILY 12/26/18 12/26/18 Previous Rx's Medication Instructions Recorded Docusate [Colace] 100 mg PO DAILY #30 capsule 12/26/18 Polyethylene Glycol 3350 [Miralax] 17 gm PO DAILY #527 gm 12/26/18 Allergies Allergy/AdvReac Type Severity Reaction Status Date / Time No Known Allergies Allergy Verified 12/26/18 07:36 Review of Systems ROS Statement: Those systems with pertinent positive or pertinent negative responses have been documented in the HPI. ROS Other: All systems not noted in ROS Statement are negative. Past Medical History Past Medical History: Cancer, GERD/Reflux, Hypertension, Osteoarthritis (OA) Additional Past Medical History / Comment(s): Cervical cancer, stress induced htn, stable pulmonary nodules, arhtritis bilateral ankle. History of Any Multi-Drug Resistant Organisms: MRSA Date of last positivie culture/infection: 12/25/16 MDRO Source:: Left arm axilla Past Surgical History: Appendectomy, Section, Cholecystectomy, Hernia Repair, Hysterectomy, Orthopedic Surgery, Tubal Ligation Additional Past Surgical History / Comment(s): L ankle fracture with plate/screws since removed, EGD, harish fudoplication, C-sections x3, 3 umbilical hernia repairs Past Anesthesia/Blood Transfusion Reactions: Family History of Problems w/ Anesthesia, Postoperative Nausea & Vomiting (PONV) Additional Past Anesthesia/Blood Transfusion Reaction / Comment(s): Pt has PONV as well as her mother has PONV. Pt is clausterphobic Past Psychological History: Anxiety Smoking Status: Former smoker Past Alcohol Use History: None Reported Past Drug Use History: None Reported - Past Family History Mother Family Medical History: Cancer, Hypertension Additional Family Medical History / Comment(s): Breast cancer with bilateral mastectomies-now has metastasis. Father Family Medical History: Asthma, Diabetes Mellitus, Hypertension, Rheumatoid Arthritis (RA) General Exam - General Exam Comments Initial Comments: Physical Exam GENERAL: Patient is well-developed and well-nourished. Patient is nontoxic and well-hydrated and is in no distress. HENT: Normocephalic, Atraumatic. EYES: PERRL, EOMI PULMONARY: Unlabored respirations. No audible rales rhonchi or wheezing was noted. CARDIOVASCULAR: There is a regular rate and rhythm without any murmurs gallops or rubs. ABDOMEN: Soft and nontender with normal bowel sounds. Well healing laparoscopic surgical incisions SKIN: Skin is clear with no lesions or rashes and otherwise unremarkable. : Deferred NEUROLOGIC: Patient is alert and oriented x3. Moving all extremities spontaneously MUSCULOSKELETAL: Normal extremities with adequate strength and full range of motion. No lower extremity swelling or edema. No calf tenderness. PSYCHIATRIC: Normal psychiatric evaluation Limitations: no limitations Course Vital Signs 12/26/18 12/26/18 06:03 07:30 Temperature 98.3 F 97.7 F Pulse Rate 84 80 Respiratory 18 18 Rate Blood Pressure 130/86 125/92 O2 Sat by Pulse 100 98 Oximetry Medical Decision Making - Medical Decision Making Patient was seen and evaluated, history is obtained from the patient and review of medical record Labs and imaging were ordered KUB x-ray with no acute findings - there is significant fecal material throughout the colon CBC unremarkable Results were discussed with the patient who expresses relief. At this time patient is comfortable with the plan for discharge home, I will give the patient a stool softener as well as MiraLAX as there was significant amount of fecal m aterial throughout the colon. I advised the patient that she should follow-up with her surgeon for any persistent symptoms or return to the ER for any acute worsening. All questions pertaining care were answered return parameters were discussed patient was discharged home in stable condition. - Lab Data Result diagrams: 12/26/18 07:00 12/26/18 07:00 Lab Results 12/26/18 12/26/18 12/26/18 Range/Units 07:00 07:00 07:00 WBC 6.9 (3.8-10.6) k/uL RBC 3.94 (3.80-5.40) m/uL Hgb 12.2 (11.4-16.0) gm/dL Hct 36.1 (34.0-46.0) % MCV 91.6 (80.0-100.0) fL MCH 31.0 (25.0-35.0) pg MCHC 33.8 (31.0-37.0) g/dL RDW 14.0 (11.5-15.5) % Plt Count 168 (150-450) k/uL Neutrophils % 69 % Lymphocytes % 20 % Monocytes % 6 % Eosinophils % 3 % Basophils % 0 % Neutrophils # 4.7 (1.3-7.7) k/uL Lymphocytes # 1.4 (1.0-4.8) k/uL Monocytes # 0.4 (0-1.0) k/uL Eosinophils # 0.2 (0-0.7) k/uL Basophils # 0.0 (0-0.2) k/uL Sodium 140 (137-145) mmol/L Potassium 3.7 (3.5-5.1) mmol/L Chloride 107 (98-107) mmol/L Carbon Dioxide 23 (22-30) mmol/L Anion Gap 10 mmol/L BUN 13 (7-17) mg/dL Creatinine 0.73 (0.52-1.04) mg/dL Est GFR (CKD-EPI)AfAm >90 (>60 ml/min/1.73 sqM) Est GFR (CKD-EPI)NonAf >90 (>60 ml/min/1.73 sqM) Glucose 96 (74-99) mg/dL Calcium 9.1 (8.4-10.2) mg/dL Total Bilirubin 0.4 (0.2-1.3) mg/dL AST 20 (14-36) U/L ALT 17 (9-52) U/L Alkaline Phosphatase 76 (38-126) U/L Total Protein 6.8 (6.3-8.2) g/dL Albumin 3.9 (3.5-5.0) g/dL Amylase 53 (30-110) U/L Lipase 72 (23-300) U/L Urine Color Yellow Urine Appearance Cloudy H (Clear) Urine pH 5.5 (5.0-8.0) Ur Specific [place] 1.025 (1.001-1.035) Urine Protein Trace H (Negative) Urine Glucose (UA) Negative (Negative) Urine Ketones Negative (Negative) Urine Blood Negative (Negative) Urine Nitrite Negative (Negative) Urine Bilirubin Negative (Negative) Urine Urobilinogen <2.0 (<2.0) mg/dL Ur Leukocyte Esterase Trace H (Negative) Urine WBC 5 (0-5) /hpf Ur Squamous Epith Cells 9 H (0-4) /hpf Calcium Oxalate Crystal Occasional H (None) /hpf Urine Bacteria Rare H (None) /hpf Urine Mucus Few H (None) /hpf Disposition Clinical Impression: Abdominal pain Disposition: HOME SELF-CARE Condition: Stable Instructions (If sedation given, give patient instructions): Abdominal Pain (ED) Prescriptions: Docusate [Colace] 100 mg PO DAILY #30 capsule Polyethylene Glycol 3350 [Miralax] 17 gm PO DAILY #527 gm Is patient prescribed a controlled substance at d/c from ED?: No Referrals: Amparo Felder MD [Primary Care Provider] - 1-2 days
--- NOTE | 2018-12-26 07:42 | XR ---
EXAMINATION TYPE: XR KUB DATE OF EXAM: 12/26/2018 7:16 AM CLINICAL HISTORY: Abdominal pain TECHNIQUE: Single upright image of the abdomen is obtained. COMPARISON: None. FINDINGS: Scattered gas is seen in nondilated small bowel loops. Gas and fecal material is seen in no ndilated colon. There is no or abnormal calcification appreciated. The lung bases are clear and the o sseous structures are intact. Small phleboliths are seen within the pelvis. Cholecystectomy clips are seen. Surgical clip is also seen in the left upper quadrant. Minimal levoscoliosis may be positional in nature. IMPRESSION: Nonobstructive bowel gas pattern.
[2018-12-26 07:53] LABS: Basophils % (A) 0 %; Eosinophils # (A) 0.2 k/uL (0-0.7); Eosinophils % (A) 3 %; HCT 36.1 % (34.0-46.0); HGB 12.2 gm/dL (11.4-16.0); Lymphocytes # (A) 1.4 k/uL (1.0-4.8); Lymphocytes % (A) 20 %; MCHC 33.8 g/dL (31.0-37.0); MCV 91.6 fL (80.0-100.0); Mean Platelet Volume 8.3; Monocytes # (A) 0.4 k/uL (0-1.0); Monocytes % (A) 6 %; Neutrophils # (A) 4.7 k/uL (1.3-7.7); Neutrophils % (A) 69 %; Platelet Count 168 k/uL (150-450); RBC 3.94 m/uL (3.80-5.40); WBC 6.9 k/uL (3.8-10.6)
[2018-12-26 07:57] LABS: ALT 17 U/L (9-52); AST 20 U/L (14-36); African American GFR (CKD) >90 (>60 ml/min/1.73 sqM); Albumin 3.9 g/dL (3.5-5.0); Alkaline Phosphatase 76 U/L (38-126); Amylase 53 U/L (30-110); Anion Gap 10 mmol/L; Appearance,Urine Cloudy (Clear); Bacteria,Urine Rare /hpf; Bilirubin,Urine Negative (Negative); Blood Urea Nitrogen 13 mg/dL (7-17); Blood,Urine Negative (Negative); Calcium 9.1 mg/dL (8.4-10.2); Calcium Oxalate Crystals,Urine Occasional /hpf; Carbon Dioxide 23 mmol/L (22-30); Chloride 107 mmol/L (98-107); Color,Urine Yellow; Glucose 96 mg/dL (74-99); Glucose,Urine (UA) Negative (Negative); Ketones,Urine Negative (Negative); Leukocyte Esterase,Urine Trace (Negative); Lipase 72 U/L (23-300); Mucus,Urine Few /hpf; Nitrite,Urine Negative (Negative); PH, Urine 5.5 (5.0-8.0); Potassium 3.7 mmol/L (3.5-5.1); Protein,Urine Trace (Negative); Sodium 140 mmol/L (137-145); Specific Gravity,Urine 1.025 (1.001-1.035); Squamous Epithelial Cell,Urine 9 /hpf (0-4); Total Bilirubin 0.4 mg/dL (0.2-1.3); Total Protein 6.8 g/dL (6.3-8.2); Urobilinogen,Urine <2.0 mg/dL (<2.0); WBC,Urine 5 /hpf (0-5)
[2018-12-26 07:58] VITALS: BP 125/92; PULSE 80; TEMP 97.7
== END 2018-12-26 08:18 | disposition home or self-care (01) ==
LOC: EC 06:00
DX: R10.9 Unspecified abdominal pain (principal); I10 Essential (primary) hypertension; Z79.899 Other long term (current) drug therapy; Z87.891 Personal history of nicotine dependence; Z85.41 Personal history of malignant neoplasm of cervix uteri; Z90.49 Acquired absence of other specified parts of digestive tract; Z90.89 Acquired absence of other organs
CPT/HCPCS: 36415; 80053; 82150; 83690; 85025; 81001; 74018; 99284; 96374; 96361; J1885

== ENCOUNTER 2019-08-09 19:53 | Emergency (ER) | payer OTHER ==
[2019-08-09 19:58] VITALS: TEMP 98
[2019-08-09] MEDS ORDERED: PANTOPRAZOLE 40 MG/10 ML VIAL IVP STA (20:58)
[2019-08-09] MEDS ORDERED: SODIUM CHLORIDE 0.9% 1,000 ML IV STA (20:58)
[2019-08-09] MEDS ORDERED: IOPAMIDOL CONTRAST (ORAL USE) VIAL PO PRN (21:23)
[2019-08-09 21:42] LABS: Appearance,Urine Clear (Clear); Bilirubin,Urine Negative (Negative); Blood,Urine Negative (Negative); Color,Urine Light Yellow; Glucose,Urine (UA) Negative (Negative); Ketones,Urine Negative (Negative); Leukocyte Esterase,Urine Negative (Negative); Nitrite,Urine Negative (Negative); Protein,Urine Negative (Negative); Specific Gravity,Urine 1.015 (1.001-1.035); Urobilinogen,Urine <2.0 mg/dL (<2.0)
--- NOTE | 2019-08-09 21:44 | ED ---
Abdominal Pain HPI - General Chief Complaint: Abdominal Pain Stated Complaint: abd pain Time Seen by Provider: 08/09/19 20:00 Source: patient, RN notes reviewed, old records reviewed Mode of arrival: ambulatory Limitations: no limitations - History of Present Illness Initial Comments: This is a 33-year-old female history of a Harish fundoplication several years ago who presents with complaints of burning epigastric pain he has a go up toward her throat over last several days she also is had some episodes of along with his burning chest pain some nausea. She states she also had some episode of some tearing left lower quadrant that pushed out but slowly went back and she was concerned that she may have a small hernia. Additionally she states her blood pressure is been elevated in the 104 diastolic range. This is in spite of medication. He has any fevers chills sweats cough or other symptoms at this time MD Complaint: abdominal pain - Related Data Home Medications Medication Instructions Recorded Confirmed Multivitamins, Thera [Multivitamin 1 tab PO DAILY 05/12/17 12/26/18 (formulary)] Atenolol [Tenormin] 12.5 mg PO DAILY 12/26/18 12/26/18 Previous Rx's Medication Instructions Recorded Docusate [Colace] 100 mg PO DAILY #30 capsule 12/26/18 Polyethylene Glycol 3350 [Miralax] 17 gm PO DAILY #527 gm 12/26/18 Pantoprazole Sodium [Protonix] 40 mg PO DAILY #15 tablet. 08/09/19 Allergies Allergy/AdvReac Type Severity Reaction Status Date / Time No Known Allergies Allergy Verified 08/09/19 19:58 Review of Systems ROS Statement: Those systems with pertinent positive or pertinent negative responses have been documented in the HPI. ROS Other: All systems not noted in ROS Statement are negative. Past Medical History Past Medical History: Cancer, GERD/Reflux, Hypertension, Osteoarthritis (OA) Additional Past Medical History / Comment(s): Cervical cancer, stress induced htn, stable pulmonary nodules, arhtritis bilateral ankle. History of Any Multi-Drug Resistant Organisms: MRSA Date of last positivie culture/infection: 12/25/16 MDRO Source:: Left arm axilla Past Surgical History: Appendectomy, Section, Cholecystectomy, Hernia Repair, Hysterectomy, Orthopedic Surgery, Tubal Ligation Additional Past Surgical History / Comment(s): L ankle fracture with plate/screws since removed, EGD, harish fudoplication, C-sections x3, 3 umbilical hernia repairs Past Anesthesia/Blood Transfusion Reactions: Family History of Problems w/ Anesthesia, Postoperative Nausea & Vomiting (PONV) Additional Past Anesthesia/Blood Transfusion Reaction / Comment(s): Pt has PONV as well as her mother has PONV. Pt is clausterphobic Past Psychological History: Anxiety Smoking Status: Former smoker Past Alcohol Use History: None Reported Past Drug Use History: None Reported - Past Family History Mother Family Medical History: Cancer, Hypertension Additional Family Medical History / Comment(s): Breast cancer with bilateral mastectomies-now has metastasis. Father Family Medical History: Asthma, Diabetes Mellitus, Hypertension, Rheumatoid Arthritis (RA) General Exam - General Exam Comments Initial Comments: This is a well-developed well-nourished awake alert oriented 3 female Limitations: no limitations General appearance: alert Head exam: Present: atraumatic, normocephalic, normal inspection Eye exam: Present: normal appearance, PERRL, EOMI. Absent: scleral icterus, conjunctival injection, periorbital swelling ENT exam: Present: normal exam, mucous membranes moist Neck exam: Present: normal inspection. Absent: tenderness, meningismus, lymphad enopathy Respiratory exam: Present: normal lung sounds bilaterally. Absent: respiratory distress, wheezes, rales, rhonchi, stridor Cardiovascular Exam: Present: regular rate, normal rhythm, normal heart sounds. Absent: systolic murmur, diastolic murmur, rubs, gallop, clicks GI/Abdominal exam: Present: soft, tenderness (Epigastric tenderness palpation some mild left lower quadrant tenderness palpation no evidence of protruding bowel there is an area and left lower quadrant that may represent a defect in the rectus), normal bowel sounds. Absent: distended, guarding, rebound, rigid Rectal exam: Present: deferred Extremities exam: Present: normal inspection, full ROM, normal capillary refill. Absent: tenderness, pedal edema, joint swelling, calf tenderness Back exam: Present: normal inspection Neurological exam: Present: alert, oriented X3, CN II-XII intact Psychiatric exam: Present: normal affect, normal mood Skin exam: Present: warm, dry, intact, normal color. Absent: rash Course Vital Signs 08/09/19 19:55 Temperature 98.0 F Pulse Rate 72 Respiratory 20 Rate Blood Pressure 161/104 O2 Sat by Pulse 99 Oximetry Medical Decision Making - Medical Decision Making I did discuss findings with the patient she is feeling much improved at this time has no pain discuss whether she would like to go home and follow up outpatient with Dr. Adorno. This is reasonable she will be placed on a proton pump inhibitor in the interim. The will contact him tomorrow. - Lab Data Result diagrams: 08/09/19 21:45 08/09/19 21:45 Lab Results 08/09/19 08/09/19 08/09/19 Range/Units 21:30 21:45 21:45 WBC 8.5 (3.8-10.6) k/uL RBC 4.25 (3.80-5.40) m/uL Hgb 13.6 (11.4-16.0) gm/dL Hct 39.8 (34.0-46.0) % MCV 93.6 (80.0-100.0) fL MCH 31.9 (25.0-35.0) pg MCHC 34.1 (31.0-37.0) g/dL RDW 12.2 (11.5-15.5) % Plt Count 176 (150-450) k/uL Neutrophils % 55 % Lymphocytes % 36 % Monocytes % 5 % Eosinophils % 1 % Basophils % 0 % Neutrophils # 4.7 (1.3-7.7) k/uL Lymphocytes # 3.1 (1.0-4.8) k/uL Monocytes # 0.4 (0-1.0) k/uL Eosinophils # 0.1 (0-0.7) k/uL Basophils # 0.0 (0-0.2) k/uL PT (9.0-12.0) sec INR (<1.2) APTT (22.0-30.0) sec Sodium 139 (137-145) mmol/L Potassium 3.9 (3.5-5.1) mmol/L Chloride 103 (98-107) mmol/L Carbon Dioxide 26 (22-30) mmol/L Anion Gap 10 mmol/L BUN 17 (7-17) mg/dL Creatinine 0.81 (0.52-1.04) mg/dL Est GFR (CKD-EPI)AfAm >90 (>60 ml/min/1.73 sqM) Est GFR (CKD-EPI)NonAf >90 (>60 ml/min/1.73 sqM) Glucose 94 (74-99) mg/dL Calcium 10.1 (8.4-10.2) mg/dL Total Bilirubin 0.5 (0.2-1.3) mg/dL AST 25 (14-36) U/L ALT 16 (4-34) U/L Alkaline Phosphatase 84 (38-126) U/L Creatine Kinase 46 (30-135) U/L Troponin I (0.000-0.034) ng/mL Total Protein 8.0 (6.3-8.2) g/dL Albumin 4.8 (3.5-5.0) g/dL Amylase 62 (30-110) U/L Lipase 92 (23-300) U/L Urine Color Light Yellow Urine Appearance Clear (Clear) Urine pH 6.0 (5.0-8.0) Ur Specific [place] 1.015 (1.001-1.035) Urine Protein Negative (Negative) Urine Glucose (UA) Negative (Negative) Urine Ketones Negative (Negative) Urine Blood Negative (Negative) Urine Nitrite Negative (Negative) Urine Bilirubin Negative (Negative) Urine Urobilinogen <2.0 (<2.0) mg/dL Ur Leukocyte Esterase Negative (Negative) 08/09/19 08/09/19 Range/Units 21:45 21:45 WBC (3.8-10.6) k/uL RBC (3.80-5.40) m/uL Hgb (11.4-16.0) gm/dL Hct (34.0-46.0) % MCV (80.0-100.0) fL MCH (25.0-35.0) pg MCHC (31.0-37.0) g/dL RDW (11.5-15.5) % Plt Count (150-450) k/uL Neutrophils % % Lymphocytes % % Monocytes % % Eosinophils % % Basophils % % Neutrophils # (1.3-7.7) k/uL Lymphocytes # (1.0-4.8) k/uL Monocytes # (0-1.0) k/uL Eosinophils # (0-0.7) k/uL Basophils # (0-0.2) k/uL PT 9.6 (9.0-12.0) sec INR 0.9 (<1.2) APTT 22.7 (22.0-30.0) sec Sodium (137-145) mmol/L Potassium (3.5-5.1) mmol/L Chloride (98-107) mmol/L Carbon Dioxide (22-30) mmol/L Anion Gap mmol/L BUN (7-17) mg/dL Creatinine (0.52-1.04) mg/dL Est GFR (CKD-EPI)AfAm (>60 ml/min/1.73 sqM) Est GFR (CKD-EPI)NonAf (>60 ml/min/1.73 sqM) Glucose (74-99) mg/dL Calcium (8.4-10.2) mg/dL Total Bilirubin (0.2-1.3) mg/dL AST (14-36) U/L ALT (4-34) U/L Alkaline Phosphatase (38-126) U/L Creatine Kinase (30-135) U/L Troponin I <0.012 (0.000-0.034) ng/mL Total Protein (6.3-8.2) g/dL Albumin (3.5-5.0) g/dL Amylase (30-110) U/L Lipase (23-300) U/L Urine Color Urine Appearance (Clear) Urine pH (5.0-8.0) Ur Specific [place] (1.001-1.035) Urine Protein (Negative) Urine Glucose (UA) (Negative) Urine Ketones (Negative) Urine Blood (Negative) Urine Nitrite (Negative) Urine Bilirubin (Negative) Urine Urobilinogen (<2.0) mg/dL Ur Leukocyte Esterase (Negative) - Radiology Data Radiology results: report reviewed (I did review the imaging and report no acute findings no evidence of any obstruction. Receded complete report), image reviewed Disposition Clinical Impression: Abdominal pain, GERD (gastroesophageal reflux disease) Disposition: HOME SELF-CARE Condition: Good Instructions (If sedation given, give patient instructions): Abdominal Pain (ED), Gastroesophageal Reflux Disease (ED) Additional Instructions: Medication prescriptions sent your preferred to [facility] pharmacy Prescriptions: Pantoprazole Sodium [Protonix] 40 mg PO DAILY #15 tablet.dr Is patient prescribed a controlled substance at d/c from ED?: No Referrals: Amparo Felder MD [Primary Care Provider] - 1-2 days
[2019-08-09 22:09] LABS: ALT 16 U/L (4-34); AST 25 U/L (14-36); African American GFR (CKD) >90 (>60 ml/min/1.73 sqM); Albumin 4.8 g/dL (3.5-5.0); Alkaline Phosphatase 84 U/L (38-126); Amylase 62 U/L (30-110); Anion Gap 10 mmol/L; Blood Urea Nitrogen 17 mg/dL (7-17); Calcium 10.1 mg/dL (8.4-10.2); Carbon Dioxide 26 mmol/L (22-30); Chloride 103 mmol/L (98-107); Creatine Kinase 46 U/L (30-135); Glucose 94 mg/dL (74-99); Non-African American GFR(CKD) >90 (>60 ml/min/1.73 sqM); Potassium 3.9 mmol/L (3.5-5.1); Sodium 139 mmol/L (137-145); Total Bilirubin 0.5 mg/dL (0.2-1.3)
[2019-08-09 22:10] LABS: INR 0.9 (<1.2); Partial Thromboplastin Time 22.7 sec (22.0-30.0); Prothrombin Time 9.6 sec (9.0-12.0)
[2019-08-09 22:11] LABS: Basophils % (A) 0 %; Eosinophils # (A) 0.1 k/uL (0-0.7); Eosinophils % (A) 1 %; HCT 39.8 % (34.0-46.0); HGB 13.6 gm/dL (11.4-16.0); Lymphocytes # (A) 3.1 k/uL (1.0-4.8); Lymphocytes % (A) 36 %; MCH 31.9 pg (25.0-35.0); MCHC 34.1 g/dL (31.0-37.0); MCV 93.6 fL (80.0-100.0); Mean Platelet Volume 8.8; Monocytes # (A) 0.4 k/uL (0-1.0); Monocytes % (A) 5 %; Neutrophils # (A) 4.7 k/uL (1.3-7.7); Neutrophils % (A) 55 %; Platelet Count 176 k/uL (150-450); RBC 4.25 m/uL (3.80-5.40); RDW 12.2 % (11.5-15.5); WBC 8.5 k/uL (3.8-10.6)
--- NOTE | 2019-08-09 22:36 | CT ---
EXAMINATION TYPE: CT abdomen pelvis w con DATE OF EXAM: 08/09/2019 COMPARISON: 11/29/2018 HISTORY: Epigastric pain. Hernia CT DLP: 852.9 mGycm Automated exposure control for dose reduction was used. CONTRAST: Performed with IV Contrast, patient injected with 100 mL of Isovue 300. Multiple axial sections were obtained from the diaphragm to the floor the pelvis with intravenous con trast. Lung bases are clear. There is no pleural effusion. Heart size is normal. There is hiatal hernia. The re are clips from cholecystectomy. Liver spleen pancreas appear normal. Bile ducts are not dilated. S tomach is intact. There is no adrenal mass. Kidneys show satisfactory contrast opacification. There is no hydronephrosi s. Ureters are not dilated on the delayed images. There is satisfactory renal excretion. Bladder distends smoothly. There is no inguinal hernia. There is small amount of free fluid in the pe lvis. There is no mesenteric edema. There is no ascites or free air. There is no evidence of a bowel obstruction. There is hysterectomy. Fluid in the pelvis measures 2.5 x 3.5 cm. Appendix is not seen. There is no sign of thickened appendix. Lumbar vertebra have normal alignment. There is no compression fracture. Bony pelvis is intact. IMPRESSION: There is free fluid in the pelvis. Appendix not seen. No sign of appendicitis. No bowel obstruction. Hiatal hernia.
[2019-08-09 23:47] VITALS: BP 127/81; PULSE 68; RESP 18
== END 2019-08-09 23:47 | disposition home or self-care (01) ==
LOC: EC 19:53
DX: K21.9 Gastro-esophageal reflux disease without esophagitis (principal); I10 Essential (primary) hypertension; Z87.891 Personal history of nicotine dependence; Z79.899 Other long term (current) drug therapy; Z86.14 Personal history of Methicillin resistant Staphylococcus aureus infection; Z85.41 Personal history of malignant neoplasm of cervix uteri; Z90.49 Acquired absence of other specified parts of digestive tract; Z90.710 Acquired absence of both cervix and uterus
CPT/HCPCS: 36415; 93005; 80053; 82150; 82550; 83690; 84484; 85025; 85610; 85730; 81003; 74177; 99285; 96374; 96361 ×2; C9113; Q9967

== ENCOUNTER 2019-11-26 15:59 | Emergency (ER) | payer OTHER ==
[2019-11-26 16:03] VITALS: PULSE 66; RESP 18; TEMP 98.1
[2019-11-26] MEDS ORDERED: SODIUM CHLORIDE 0.9% 1,000 ML IV STA (16:20)
--- NOTE | 2019-11-26 16:25 | ED ---
General Adult HPI - General Source: patient Mode of arrival: ambulatory Limitations: no limitations <Jayme Gomes - Last Filed: 11/27/19 20:36> <Haily Juárez - Last Filed: 11/28/19 23:05> - General Chief complaint: Recheck/Abnormal Lab/Rx Stated complaint: Sugar issues Time Seen by Provider: 11/26/19 16:05 - History of Present Illness Initial comments: Patient is a 34-year-old female presenting to emergency department with a chief complaint of feeling shaky. States for about a week she has developed occ asional generalized "body shakiness". States that her "body feels weird". States about one week ago she began taking additional vitamins and minerals, energy supplements and fat metabolizers. Patient reports she continue take the medication even though her symptoms persisted. Denies any chest pain, shortness of breath, visual changes, one-sided weakness or paresthesias. Denies any urinary or vaginal symptoms. States there is no chance of due to hysterectomy. Denies any night sweats or chills. States she is diagnosed with hypertension and is taking atenolol. (Jayme Gomes) - Related Data Home Medications Medication Instructions Recorded Confirmed Multivitamins, Thera [Multivitamin 1 tab PO DAILY 05/12/17 12/26/18 (formulary)] Atenolol [Tenormin] 12.5 mg PO DAILY 12/26/18 12/26/18 Previous Rx's Medication Instructions Recorded Docusate [Colace] 100 mg PO DAILY #30 capsule 12/26/18 Polyethylene Glycol 3350 [Miralax] 17 gm PO DAILY #527 gm 12/26/18 Pantoprazole Sodium [Protonix] 40 mg PO DAILY #15 tablet. 08/09/19 Allergies Allergy/AdvReac Type Severity Reaction Status Date / Time No Known Allergies Allergy Verified 11/26/19 16:03 Review of Systems ROS Other: All systems not noted in ROS Statement are negative. <Jayme Gomes - Last Filed: 11/27/19 20:36> ROS Other: All systems not noted in ROS Statement are negative. <Haily Juárez - Last Filed: 11/28/19 23:05> ROS Statement: Those systems with pertinent positive or pertinent negative responses have been documented in the HPI. Past Medical History Past Medical History: Cancer, GERD/Reflux, Hypertension, Osteoarthritis (OA) Additional Past Medical History / Comment(s): Cervical cancer, stress induced htn, stable pulmonary nodules, arhtritis bilateral ankle. History of Any Multi-Drug Resistant Organisms: MRSA Date of last positivie culture/infection: 12/25/16 MDRO Source:: Left arm axilla Past Surgical History: Appendectomy, Section, Cholecystectomy, Hernia Repair, Hysterectomy, Orthopedic Surgery, Tubal Ligation Additional Past Surgical History / Comment(s): L ankle fracture with plate/screws since removed, EGD, harish fudoplication, C-sections x3, 3 umbilical hernia repairs Past Anesthesia/Blood Transfusion Reactions: Family History of Problems w/ Anesthesia, Postoperative Nausea & Vomiting (PONV) Additional Past Anesthesia/Blood Transfusion Reaction / Comment(s): Pt has PONV as well as her mother has PONV. Pt is clausterphobic Past Psychological History: Anxiety Smoking Status: Former smoker Past Alcohol Use History: None Reported Past Drug Use History: None Reported - Past Family History Mother Family Medical History: Cancer, Hypertension Additional Family Medical History / Comment(s): Breast cancer with bilateral mastectomies-now has metastasis. Father Family Medical History: Asthma, Diabetes Mellitus, Hypertension, Rheumatoid Arthritis (RA) <Jayme Gomes Last Filed: 11/27/19 20:36> General Exam Limitations: no limitations General appearance: alert, in no apparent distress Head exam: Present: atraumatic, normocephalic, normal inspection Eye exam: Present: normal appearance, PERRL, EOMI Pupils: Present: normal accommodation ENT exam: Present: normal exam, normal oropharynx, mucous membranes moist Neck exam: Present: normal inspection, full ROM. Absent: tenderness, lymphadenopathy Respiratory exam: Present: normal lung sounds bilaterally. Absent: respiratory distress, wheezes, rales Cardiovascular Exam: Present: regular rate, normal rhythm, normal heart sounds Extremities exam: Present: normal inspection, full ROM Back exam: Present: normal inspection, full ROM Neurological exam: Present: alert, oriented X3 Psychiatric exam: Present: normal affect, normal mood Skin exam: Present: warm, dry, intact, normal color <Jayme Gomes Last Filed: 11/27/19 20:36> Course Vital Signs 11/26/19 11/26/19 11/26/19 16:01 16:45 17:00 Temperature 98.1 F Pulse Rate 66 Respiratory 18 Rate Blood Pressure 161/105 128/79 O2 Sat by Pulse 99 98 100 Oximetry 11/26/19 17:34 Temperature 98.1 F Pulse Rate 66 Respiratory 18 Rate Blood Pressure 128/79 O2 Sat by Pulse 100 Oximetry EKG Findings - EKG Comments: EKG Findings:: Sinus rhythm with no ST or T-wave changes. Next, jugular 76, PA 160, QRS 90, QTC 454. <Jayme Gomes - Last Filed: 11/27/19 20:36> Medical Decision Making - Lab Data Result diagrams: 11/26/19 16:45 11/26/19 16:45 <Jayme Gomes - Last Filed: 11/27/19 20:36> - Lab Data Result diagrams: 11/26/19 16:45 11/26/19 16:45 <Haily Juárez - Last Filed: 11/28/19 23:05> - Medical Decision Making Patient is a 34-year-old female presenting to emergency Department with a chief complaint of feeling shaky. Patient recently started new supplements such as fat burner and energy boosters. EKG is unremarkable. CBC CMP and UA are unremarkable. I advised the patient to stop taking the new supplements because her symptoms began immediately after she started taking the supplements. Return parameters thoroughly discussed the patient was understanding and agreeable. Advised to follow up primary care. Case discussed with physician. (Jayme Gomes) I was available for consultation in the emergency department. The history and physical exam were done by the midlevel provider. I was consulted for this patients care. I reviewed the case with the midlevel provider and based on their presentation of the patient, I agree with the assessment, medical decision making and plan of care as documented. Chart was dictated using [employer] dictation software. Attempts were made to co rrect any dictation errors however some typographical errors may persist. Patient was seen during a national state of emergency due to the Covid-19 pandemic. (Haily Juárez) - Lab Data Lab Results 11/26/19 11/26/19 11/26/19 Range/Units 16:35 16:45 16:45 WBC 7.7 (3.8-10.6) k/uL RBC 3.94 (3.80-5.40) m/uL Hgb 13.1 (11.4-16.0) gm/dL Hct 38.4 (34.0-46.0) % MCV 97.5 (80.0-100.0) fL MCH 33.1 (25.0-35.0) pg MCHC 34.0 (31.0-37.0) g/dL RDW 12.6 (11.5-15.5) % Plt Count 217 (150-450) k/uL Neutrophils % 59 % Lymphocytes % 33 % Monocytes % 5 % Eosinophils % 1 % Basophils % 0 % Neutrophils # 4.5 (1.3-7.7) k/uL Lymphocytes # 2.5 (1.0-4.8) k/uL Monocytes # 0.4 (0-1.0) k/uL Eosinophils # 0.1 (0-0.7) k/uL Basophils # 0.0 (0-0.2) k/uL Sodium 137 (137-145) mmol/L Potassium 3.8 (3.5-5.1) mmol/L Chloride 105 (98-107) mmol/L Carbon Dioxide 23 (22-30) mmol/L Anion Gap 9 mmol/L BUN 12 (7-17) mg/dL Creatinine 0.73 (0.52-1.04) mg/dL Est GFR (CKD-EPI)AfAm >90 (>60 ml/min/1.73 sqM) Est GFR (CKD-EPI)NonAf >90 (>60 ml/min/1.73 sqM) Glucose 98 (74-99) mg/dL Calcium 9.8 (8.4-10.2) mg/dL Total Bilirubin 0.3 (0.2-1.3) mg/dL AST 26 (14-36) U/L ALT 16 (4-34) U/L Alkaline Phosphatase 103 (38-126) U/L Total Protein 8.0 (6.3-8.2) g/dL Albumin 4.6 (3.5-5.0) g/dL Urine Color Yellow Urine Appearance Clear (Clear) Urine pH 6.5 (5.0-8.0) Ur Specific [place] 1.008 (1.001-1.035) Urine Protein Negative (Negative) Urine Glucose (UA) Negative (Negative) Urine Ketones Negative (Negative) Urine Blood Negative (Negative) Urine Nitrite Negative (Negative) Urine Bilirubin Negative (Negative) Urine Urobilinogen <2.0 (<2.0) mg/dL Ur Leukocyte Esterase Negative (Negative) Disposition Is patient prescribed a controlled substance at d/c from ED?: No Time of Disposition: 17:14 <Jayme Gomes - Last Filed: 11/27/19 20:36> <Haily Juárez - Last Filed: 11/28/19 23:05> Clinical Impression: Fatigue Disposition: HOME SELF-CARE Condition: Good Additional Instructions: Follow with primary care. Return to emergency department if symptoms worsen. Referrals: Amparo Felder MD [Primary Care Provider] - 1-2 days
[2019-11-26 16:43] LABS: Appearance,Urine Clear (Clear); Bilirubin,Urine Negative (Negative); Blood,Urine Negative (Negative); Color,Urine Yellow; Glucose,Urine (UA) Negative (Negative); Ketones,Urine Negative (Negative); Leukocyte Esterase,Urine Negative (Negative); Nitrite,Urine Negative (Negative); PH, Urine 6.5 (5.0-8.0); Protein,Urine Negative (Negative); Specific Gravity,Urine 1.008 (1.001-1.035); Urobilinogen,Urine <2.0 mg/dL (<2.0)
[2019-11-26 16:49] LABS: Basophils % (A) 0 %; Eosinophils # (A) 0.1 k/uL (0-0.7); Eosinophils % (A) 1 %; HCT 38.4 % (34.0-46.0); HGB 13.1 gm/dL (11.4-16.0); Lymphocytes # (A) 2.5 k/uL (1.0-4.8); Lymphocytes % (A) 33 %; MCH 33.1 pg (25.0-35.0); MCV 97.5 fL (80.0-100.0); Mean Platelet Volume 8.4; Monocytes # (A) 0.4 k/uL (0-1.0); Monocytes % (A) 5 %; Neutrophils # (A) 4.5 k/uL (1.3-7.7); Neutrophils % (A) 59 %; Platelet Count 217 k/uL (150-450); RBC 3.94 m/uL (3.80-5.40); RDW 12.6 % (11.5-15.5); WBC 7.7 k/uL (3.8-10.6)
[2019-11-26 17:08] LABS: ALT 16 U/L (4-34); AST 26 U/L (14-36); African American GFR (CKD) >90 (>60 ml/min/1.73 sqM); Albumin 4.6 g/dL (3.5-5.0); Alkaline Phosphatase 103 U/L (38-126); Anion Gap 9 mmol/L; Blood Urea Nitrogen 12 mg/dL (7-17); Calcium 9.8 mg/dL (8.4-10.2); Carbon Dioxide 23 mmol/L (22-30); Chloride 105 mmol/L (98-107); Glucose 98 mg/dL (74-99); Non-African American GFR(CKD) >90 (>60 ml/min/1.73 sqM); Potassium 3.8 mmol/L (3.5-5.1); Sodium 137 mmol/L (137-145); Total Bilirubin 0.3 mg/dL (0.2-1.3)
[2019-11-26 17:10] VITALS: BP 128/79
== END 2019-11-26 17:34 | disposition home or self-care (01) ==
LOC: EC 15:59
DX: R53.83 Other fatigue (principal); R25.8 Other abnormal involuntary movements; I10 Essential (primary) hypertension; Z79.899 Other long term (current) drug therapy; Z90.710 Acquired absence of both cervix and uterus; Z86.14 Personal history of Methicillin resistant Staphylococcus aureus infection; Z87.891 Personal history of nicotine dependence; Z85.41 Personal history of malignant neoplasm of cervix uteri; Z90.49 Acquired absence of other specified parts of digestive tract; Z98.890 Other specified postprocedural states; Z80.3 Family history of malignant neoplasm of breast
CPT/HCPCS: 36415; 80053; 81003; 85025; 93005; 99283

== ENCOUNTER 2020-01-30 14:49 | Emergency (ER) | payer OTHER ==
[2020-01-30] MEDS ORDERED: SODIUM CHLORIDE 0.9% 1,000 ML IV STA (15:32)
[2020-01-30] MEDS ORDERED: atenoloL 25 MG TAB PO STA (15:33)
--- NOTE | 2020-01-30 15:36 | ED ---
Arrhythmia/Palpitations HPI - General Chief Complaint: Arrhythmia/Palpitations Stated Complaint: High Heart Rate Time Seen by Provider: 01/30/20 15:24 Source: patient, RN notes reviewed Mode of arrival: ambulatory Limitations: no limitations - History of Present Illness Initial Comments: This a 34-year-old female presents emergency Department with chief complaint of palpitations. Patient states she is feeling off at work states she felt flushed but they're her wants or shoulder her heart rate was 120. Patient went to her work station who recommended come emergency department. Patient states that she normally takes Tenormin daily with states that she is To take it. Patient has no complaints at this time denies any chest pain, shortness breath, nausea vomiting diarrhea constipation no back pain no flank pain no fevers or chills. - Related Data Home Medications Medication Instructions Recorded Confirmed Multivitamins, Thera [Multivitamin 1 tab PO DAILY 05/12/17 12/26/18 (formulary)] atenoloL [Tenormin] 12.5 mg PO DAILY 12/26/18 12/26/18 Previous Rx's Medication Instructions Recorded Docusate [Colace] 100 mg PO DAILY #30 capsule 12/26/18 Polyethylene Glycol 3350 [Miralax] 17 gm PO DAILY #527 gm 12/26/18 Pantoprazole Sodium [Protonix] 40 mg PO DAILY #15 tablet. 08/09/19 Allergies Allergy/AdvReac Type Severity Reaction Status Date / Time No Known Allergies Allergy Verified 11/26/19 16:03 Review of Systems ROS Statement: Those systems with pertinent positive or pertinent negative responses have been documented in the HPI. ROS Other: All systems not noted in ROS Statement are negative. Past Medical History Past Medical History: Cancer, GERD/Reflux, Hypertension, Osteoarthritis (OA) Additional Past Medical History / Comment(s): Cervical cancer, stress induced htn, stable pulmonary nodules, arhtritis bilateral ankle. History of Any Multi-Drug Resistant Organisms: MRSA Date of last positivie culture/infection: 12/25/16 MDRO Source:: Left arm axilla Past Surgical History: Appendectomy, Section, Cholecystectomy, Hernia Repair, Hysterectomy, Orthopedic Surgery, Tubal Ligation Additional Past Surgical History / Comment(s): L ankle fracture with plate/screws since removed, EGD, harish fudoplication, C-sections x3, 3 umbilical hernia repairs Past Anesthesia/Blood Transfusion Reactions: Family History of Problems w/ Anesthesia, Postoperative Nausea & Vomiting (PONV) Additional Past Anesthesia/Blood Transfusion Reaction / Comment(s): Pt has PONV as well as her mother has PONV. Pt is clausterphobic Past Psychological History: Anxiety Smoking Status: Never smoker Past Alcohol Use History: None Reported Past Drug Use History: None Reported - Past Family History Mother Family Medical History: Cancer, Hypertension Additional Family Medical History / Comment(s): Breast cancer with bilateral mastectomies-now has metastasis. Father Family Medical History: Asthma, Diabetes Mellitus, Hypertension, Rheumatoid Arthritis (RA) General Exam General appearance: alert, in no apparent distress Head exam: Present: atraumatic, normocephalic, normal inspection Eye exam: Present: normal appearance, PERRL, EOMI. Absent: scleral icterus, conjunctival injection, periorbital swelling Neck exam: Present: full ROM Respiratory exam: Present: normal lung sounds bilaterally. Absent: respiratory distress, wheezes, rales, rhonchi, stridor Cardiovascular Exam: Present: regular rate, normal rhythm, normal heart sounds. Absent: systolic murmur, diastolic murmur, rubs, gallop, clicks GI/Abdominal exam: Present: soft, normal bowel sounds. Absent: distended, tenderness, guarding, rebound, rigid Neurological exam: Present: alert, oriented X3, CN II-XII intact, reflexes n ormal. Absent: motor sensory deficit Skin exam: Present: warm, dry, intact, normal color. Absent: rash Course Vital Signs 01/30/20 01/30/20 15:17 15:52 Temperature 98.5 F Pulse Rate 76 68 Respiratory 16 18 Rate Blood Pressure 140/91 130/75 O2 Sat by Pulse 100 100 Oximetry EKG Findings - EKG Comments: EKG Findings:: EKG performed at 15:20 normal sinus rhythm rate of 80 OR 164 QRS 82 QT/QTC 392/452 Medical Decision Making - Medical Decision Making 34-year-old female presented for palpitations, tachycardia. Patient's EKG revealed heart rate of 80. Patient reported heart rate of 120 at work. Patient admitted not taking her atenolol was given her atenolol blood pressures improv ed. Vitals are repeated and are stable. Labs unremarkable. - Lab Data Result diagrams: 01/30/20 15:45 01/30/20 15:45 Lab Results 01/30/20 01/30/20 01/30/20 Range/Units 15:45 15:45 15:45 WBC 6.1 (3.8-10.6) k/uL RBC 3.61 L (3.80-5.40) m/uL Hgb 12.5 (11.4-16.0) gm/dL Hct 34.8 (34.0-46.0) % MCV 96.6 (80.0-100.0) fL MCH 34.6 (25.0-35.0) pg MCHC 35.8 (31.0-37.0) g/dL RDW 12.3 (11.5-15.5) % Plt Count 198 (150-450) k/uL Neutrophils % 58 % Lymphocytes % 32 % Monocytes % 6 % Eosinophils % 2 % Basophils % 0 % Neutrophils # 3.6 (1.3-7.7) k/uL Lymphocytes # 1.9 (1.0-4.8) k/uL Monocytes # 0.4 (0-1.0) k/uL Eosinophils # 0.1 (0-0.7) k/uL Basophils # 0.0 (0-0.2) k/uL Sodium 139 (137-145) mmol/L Potassium 4.0 (3.5-5.1) mmol/L Chloride 105 (98-107) mmol/L Carbon Dioxide 25 (22-30) mmol/L Anion Gap 9 mmol/L BUN 15 (7-17) mg/dL Creatinine 0.87 (0.52-1.04) mg/dL Est GFR (CKD-EPI)AfAm >90 (>60 ml/min/1.73 sqM) Est GFR (CKD-EPI)NonAf 86 (>60 ml/min/1.73 sqM) Glucose 98 (74-99) mg/dL Calcium 9.6 (8.4-10.2) mg/dL Magnesium 1.8 (1.6-2.3) mg/dL Total Bilirubin 0.5 (0.2-1.3) mg/dL AST 28 (14-36) U/L ALT 22 (4-34) U/L Alkaline Phosphatase 80 (38-126) U/L Troponin I <0.012 (0.000-0.034) ng/mL Total Protein 7.4 (6.3-8.2) g/dL Albumin 4.5 (3.5-5.0) g/dL Disposition Clinical Impression: Palpitations, Tachycardia Disposition: HOME SELF-CARE Condition: Stable Instructions (If sedation given, give patient instructions): Heart Palpitations (ED) Additional Instructions: Please return to the Emergency Department if symptoms worsen or any other concerns. Is patient prescribed a controlled substance at d/c from ED?: No Referrals: Amparo Felder MD [Primary Care Provider] - 1-2 days Time of Disposition: 16:08
[2020-01-30 15:52] LABS: Basophils % (A) 0 %; Eosinophils # (A) 0.1 k/uL (0-0.7); Eosinophils % (A) 2 %; HCT 34.8 % (34.0-46.0); HGB 12.5 gm/dL (11.4-16.0); Lymphocytes # (A) 1.9 k/uL (1.0-4.8); Lymphocytes % (A) 32 %; MCH 34.6 pg (25.0-35.0); MCHC 35.8 g/dL (31.0-37.0); MCV 96.6 fL (80.0-100.0); Mean Platelet Volume 8.4; Monocytes # (A) 0.4 k/uL (0-1.0); Monocytes % (A) 6 %; Neutrophils # (A) 3.6 k/uL (1.3-7.7); Neutrophils % (A) 58 %; Platelet Count 198 k/uL (150-450); RBC 3.61 m/uL (3.80-5.40); RDW 12.3 % (11.5-15.5); WBC 6.1 k/uL (3.8-10.6)
[2020-01-30 15:53] VITALS: RESP 18
[2020-01-30 16:02] LABS: ALT 22 U/L (4-34); AST 28 U/L (14-36); African American GFR (CKD) >90 (>60 ml/min/1.73 sqM); Albumin 4.5 g/dL (3.5-5.0); Alkaline Phosphatase 80 U/L (38-126); Anion Gap 9 mmol/L; Blood Urea Nitrogen 15 mg/dL (7-17); Calcium 9.6 mg/dL (8.4-10.2); Carbon Dioxide 25 mmol/L (22-30); Chloride 105 mmol/L (98-107); Glucose 98 mg/dL (74-99); Magnesium 1.8 mg/dL (1.6-2.3); Non-African American GFR(CKD) 86 (>60 ml/min/1.73 sqM); Sodium 139 mmol/L (137-145); Total Bilirubin 0.5 mg/dL (0.2-1.3); Total Protein 7.4 g/dL (6.3-8.2)
[2020-01-30 16:34] VITALS: BP 118/75; PULSE 70; TEMP 98
== END 2020-01-30 16:34 | disposition home or self-care (01) ==
LOC: EC 14:49
DX: R00.0 Tachycardia, unspecified (principal); R00.2 Palpitations; I10 Essential (primary) hypertension; Z79.899 Other long term (current) drug therapy; Z85.41 Personal history of malignant neoplasm of cervix uteri
CPT/HCPCS: 36415; 80053; 83735; 84484; 85025; 93005; 96360; 99285

== ENCOUNTER 2020-03-07 21:44 | Emergency (ER) | payer OTHER ==
[2020-03-07] MEDS ORDERED: ASPIRIN 81 MG PO STA (21:54)
[2020-03-07] MEDS ORDERED: SODIUM CHLORIDE 0.9% 1,000 ML IV STA (21:54)
--- NOTE | 2020-03-07 22:00 | ED ---
General Adult HPI - General Chief complaint: Recheck/Abnormal Lab/Rx Stated complaint: High BP Time Seen by Provider: 03/07/20 21:50 Source: patient Mode of arrival: ambulatory Limitations: no limitations - History of Present Illness Initial comments: 34 year-old female patient with past medical history significant for hypertension presents to the emergency department today for evaluation of elevated blood pressure and palpitations. Patient states that she has been unable to get her blood pressure under control today. States that she has been having heart rates as low as 48 and higher than 100. Patient states she feels short of breath. States that she takes 12.5 mg of atenolol daily. States she's been on this for the last couple of years. She denies any chest pain but states her chest does feel tight. She denies any nausea, vomiting, or abdominal pain. Denies chance of , states she has had partial hysterectomy in the past. Patient denies any recent rash, fever, chills, cough, diarrhea, constipation, back pain, numbness, tingling, dizziness, weakness, hematuria, dysuria, urinary urgency, urinary frequency, headache, visual changes, or any other complaints. - Related Data Home Medications Medication Instructions Recorded Confirmed Multivitamins, Thera [Multivitamin 1 tab PO DAILY 05/12/17 03/07/20 (formulary)] atenoloL [Tenormin] 12.5 mg PO DAILY 12/26/18 03/07/20 Allergies Allergy/AdvReac Type Severity Reaction Status Date / Time No Known Allergies Allergy Verified 03/07/20 22:28 Review of Systems ROS Statement: Those systems with pertinent positive or pertinent negative responses have been documented in the HPI. ROS Other: All systems not noted in ROS Statement are negative. Past Medical History Past Medical History: Cancer, GERD/Reflux, Hypertension, Osteoarthritis (OA) Additional Past Medical History / Comment(s): Cervical cancer, stress induced htn, stable pulmonary nodules, arhtritis bilateral ankle. History of Any Multi-Drug Resistant Organisms: MRSA Date of last positivie culture/infection: 12/25/16 MDRO Source:: Left arm axilla Past Surgical History: Appendectomy, Section, Cholecystectomy, Hernia Repair, Hysterectomy, Orthopedic Surgery, Tubal Ligation Additional Past Surgical History / Comment(s): L ankle fracture with plate/screws since removed, EGD, harish fudoplication, C-sections x3, 3 umbilical hernia repairs Past Anesthesia/Blood Transfusion Reactions: Family History of Problems w/ Anesthesia, Postoperative Nausea & Vomiting (PONV) Additional Past Anesthesia/Blood Transfusion Reaction / Comment(s): Pt has PONV as well as her mother has PONV. Pt is clausterphobic Past Psychological History: Anxiety Smoking Status: Never smoker Past Alcohol Use History: None Reported Past Drug Use History: None Reported - Past Family History Mother Family Medical History: Cancer, Hypertension Additional Family Medical History / Comment(s): Breast cancer with bilateral mastectomies-now has metastasis. Father Family Medical History: Asthma, Diabetes Mellitus, Hypertension, Rheumatoid Arthritis (RA) General Exam Limitations: no limitations General appearance: alert, in no apparent distress, other (This is a well-de veloped, well-nourished adult female patient in no acute distress. Vital signs upon presentation are temperature 98.0F, pulse 99, respirations 18, blood pressure 171/112, pulse ox 100% on room air.) Eye exam: Present: normal appearance, PERRL, EOMI. Absent: scleral icterus, conjunctival injection, periorbital swelling ENT exam: Present: normal exam, normal oropharynx, mucous membranes moist Respiratory exam: Present: normal lung sounds bilaterally. Absent: respiratory distress, wheezes, rales, rhonchi, stridor Cardiovascular Exam: Present: normal rhythm, tachycardia, normal heart sounds. Absent: systolic murmur, diastolic murmur, rubs, gallop, clicks GI/Abdominal exam: Present: soft, normal bowel sounds. Absent: distended, tenderness, guarding, rebound, rigid Neurological exam: Present: alert, oriented X3, CN II-XII intact Psychiatric exam: Present: normal affect, normal mood Skin exam: Present: warm, dry, intact, normal color. Absent: rash Course Vital Signs 03/07/20 03/07/20 21:45 23:31 Temperature 98.0 F Pulse Rate 99 72 Respiratory 18 16 Rate Blood Pressure 171/112 137/87 O2 Sat by Pulse 100 98 Oximetry Medical Decision Making - Medical Decision Making 34 year-old female patient presents to the emergency department today for evaluation of palpitations and high blood pressure. Physical examination did reveal normal heart sounds with tachycardia. She did have initially have an elevated blood pressure. Labs reviewed and are unremarkable. TSH is normal. Electrolytes are normal. Troponin is negative. I did discuss findings and results with the patient. Vital signs did improve. We did discuss follow-up with cardiology and possible Holter monitoring for further evaluation of her palpitations. She is instructed to follow-up with her primary care physician for recheck in 1-2 days. Return parameters were discussed in detail. She verb alizes understanding and agrees with this plan. - Lab Data Result diagrams: 03/07/20 22:14 03/07/20 22:14 Lab Results 03/07/20 03/07/20 03/07/20 Range/Units 22:14 22:14 22:14 WBC 8.4 (3.8-10.6) k/uL RBC 4.56 (3.80-5.40) m/uL Hgb 14.4 (11.4-16.0) gm/dL Hct 43.2 (34.0-46.0) % MCV 94.9 (80.0-100.0) fL MCH 31.5 (25.0-35.0) pg MCHC 33.2 (31.0-37.0) g/dL RDW 12.3 (11.5-15.5) % Plt Count 215 (150-450) k/uL Neutrophils % 51 % Lymphocytes % 39 % Monocytes % 5 % Eosinophils % 2 % Basophils % 0 % Neutrophils # 4.3 (1.3-7.7) k/uL Lymphocytes # 3.3 (1.0-4.8) k/uL Monocytes # 0.5 (0-1.0) k/uL Eosinophils # 0.2 (0-0.7) k/uL Basophils # 0.0 (0-0.2) k/uL PT 9.6 (9.0-12.0) sec INR 0.9 (<1.2) APTT 22.6 (22.0-30.0) sec Sodium 140 (137-145) mmol/L Potassium 3.5 (3.5-5.1) mmol/L Chloride 104 (98-107) mmol/L Carbon Dioxide 23 (22-30) mmol/L Anion Gap 13 mmol/L BUN 12 (7-17) mg/dL Creatinine 0.77 (0.52-1.04) mg/dL Est GFR (CKD-EPI)AfAm >90 (>60 ml/min/1.73 sqM) Est GFR (CKD-EPI)NonAf >90 (>60 ml/min/1.73 sqM) Glucose 95 (74-99) mg/dL Calcium 10.5 H (8.4-10.2) mg/dL Magnesium 2.0 (1.6-2.3) mg/dL Total Bilirubin 0.5 (0.2-1.3) mg/dL AST 34 (14-36) U/L ALT 28 (4-34) U/L Alkaline Phosphatase 90 (38-126) U/L Troponin I (0.000-0.034) ng/mL Total Protein 8.4 H (6.3-8.2) g/dL Albumin 5.0 (3.5-5.0) g/dL TSH 2.350 (0.465-4.680) mIU/L 03/07/20 Range/Units 22:14 WBC (3.8-10.6) k/uL RBC (3.80-5.40) m/uL Hgb (11.4-16.0) gm/dL Hct (34.0-46.0) % MCV (80.0-100.0) fL MCH (25.0-35.0) pg MCHC (31.0-37.0) g/dL RDW (11.5-15.5) % Plt Count (150-450) k/uL Neutrophils % % Lymphocytes % % Monocytes % % Eosinophils % % Basophils % % Neutrophils # (1.3-7.7) k/uL Lymphocytes # (1.0-4.8) k/uL Monocytes # (0-1.0) k/uL Eosinophils # (0-0.7) k/uL Basophils # (0-0.2) k/uL PT (9.0-12.0) sec INR (<1.2) APTT (22.0-30.0) sec Sodium (137-145) mmol/L Potassium (3.5-5.1) mmol/L Chloride (98-107) mmol/L Carbon Dioxide (22-30) mmol/L Anion Gap mmol/L BUN (7-17) mg/dL Creatinine (0.52-1.04) mg/dL Est GFR (CKD-EPI)AfAm (>60 ml/min/1.73 sqM) Est GFR (CKD-EPI)NonAf (>60 ml/min/1.73 sqM) Glucose (74-99) mg/dL Calcium (8.4-10.2) mg/dL Magnesium (1.6-2.3) mg/dL Total Bilirubin (0.2-1.3) mg/dL AST (14-36) U/L ALT (4-34) U/L Alkaline Phosphatase (38-126) U/L Troponin I <0.012 (0.000-0.034) ng/mL Total Protein (6.3-8.2) g/dL Albumin (3.5-5.0) g/dL TSH (0.465-4.680) mIU/L - Radiology Data Radiology results: report reviewed, image reviewed Two-view x-ray of the chest is obtained. Report was reviewed in its entirety. Impression by Dr. Interiano shows normal chest. No change. Disposition Clinical Impression: Palpitations, High blood pressure Disposition: HOME SELF-CARE Condition: Good Instructions (If sedation given, give patient instructions): Heart Palpitations (ED), Chronic Hypertension (ED) Additional Instructions: Follow-up with your primary care physician and baker helper for further evaluation. Discuss Holter or heart monitoring. Return to the emergency department immediately for any new, worsening, or concerning symptoms. Is patient prescribed a controlled substance at d/c from ED?: No Referrals: Amparo Felder MD [Primary Care Provider] - 1-2 days Claus Garvey MD [STAFF PHYSICIAN] - 1-2 days Time of Disposition: 23:43
--- NOTE | 2020-03-07 22:33 | XR ---
EXAMINATION TYPE: XR chest 2V DATE OF EXAM: 03/07/2020 COMPARISON: 12/04/2018 HISTORY: Dysrhythmia TECHNIQUE: FINDINGS: Heart and mediastinum are normal. Lungs are clear. Diaphragm is normal. Bony thorax appears normal. IMPRESSION: Normal chest. No change.
[2020-03-07 22:41] LABS: Basophils % (A) 0 %; Eosinophils # (A) 0.2 k/uL (0-0.7); Eosinophils % (A) 2 %; HCT 43.2 % (34.0-46.0); HGB 14.4 gm/dL (11.4-16.0); Lymphocytes # (A) 3.3 k/uL (1.0-4.8); Lymphocytes % (A) 39 %; MCH 31.5 pg (25.0-35.0); MCHC 33.2 g/dL (31.0-37.0); MCV 94.9 fL (80.0-100.0); Mean Platelet Volume 8.5; Monocytes # (A) 0.5 k/uL (0-1.0); Monocytes % (A) 5 %; Neutrophils # (A) 4.3 k/uL (1.3-7.7); Neutrophils % (A) 51 %; Platelet Count 215 k/uL (150-450); RBC 4.56 m/uL (3.80-5.40); RDW 12.3 % (11.5-15.5); WBC 8.4 k/uL (3.8-10.6)
[2020-03-07 22:51] LABS: ALT 28 U/L (4-34); AST 34 U/L (14-36); African American GFR (CKD) >90 (>60 ml/min/1.73 sqM); Alkaline Phosphatase 90 U/L (38-126); Anion Gap 13 mmol/L; Blood Urea Nitrogen 12 mg/dL (7-17); Calcium 10.5 mg/dL (8.4-10.2); Carbon Dioxide 23 mmol/L (22-30); Chloride 104 mmol/L (98-107); Glucose 95 mg/dL (74-99); INR 0.9 (<1.2); Non-African American GFR(CKD) >90 (>60 ml/min/1.73 sqM); Partial Thromboplastin Time 22.6 sec (22.0-30.0); Potassium 3.5 mmol/L (3.5-5.1); Prothrombin Time 9.6 sec (9.0-12.0); Sodium 140 mmol/L (137-145); Total Bilirubin 0.5 mg/dL (0.2-1.3); Total Protein 8.4 g/dL (6.3-8.2)
[2020-03-08 00:09] VITALS: BP 143/86; PULSE 63; RESP 18; TEMP 97.7
== END 2020-03-08 00:10 | disposition home or self-care (01) ==
LOC: EC 21:44
DX: I10 Essential (primary) hypertension (principal); F41.9 Anxiety disorder, unspecified; R00.0 Tachycardia, unspecified; R00.2 Palpitations; Z79.899 Other long term (current) drug therapy; Z90.710 Acquired absence of both cervix and uterus; Z85.41 Personal history of malignant neoplasm of cervix uteri
CPT/HCPCS: 36415; 71046; 80053; 83735; 84443; 84484; 85025; 85610; 85730; 93005; 96360; 96361; 99284

== ENCOUNTER 2020-05-21 08:53 | Emergency (ER) | payer OTHER ==
[2020-05-21 09:07] VITALS: RESP 18; TEMP 98.4
[2020-05-21] MEDS ORDERED: SODIUM CHLORIDE 0.9% 1,000 ML IV STA (09:15)
[2020-05-21] MEDS ORDERED: ONDANSETRON 4 MG/2 ML VIAL IVP STA (09:15)
[2020-05-21 09:23] LABS: Glucose,Whole Blood 98 mg/dL (75-99)
--- NOTE | 2020-05-21 09:24 | ED ---
General Adult HPI - General Chief complaint: Dizziness Stated complaint: near syncope Time Seen by Provider: 05/21/20 09:08 Source: patient Mode of arrival: ambulatory Limitations: no limitations - History of Present Illness Initial comments: Dictation was produced using [employer] dictation software. please excuse any grammatical, word or spelling errors. This patient was cared for during a federal and state declared state of emergency secondary to Covid 19 Chief Complaint: 34 year old female presents with near syncope and generalized weakness History of Present Illness: 34-year-old female she came here from work. Patient states while at work she has been experiencing dizziness, weakness and nausea. Patient has no emesis. She has no pain complaints. She reports that she's been in her usual state of health yesterday. Patient feels weak to bilateral lower extremities. She has past medical history of hypertension. 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 She is normally on her feet all the time. She notices more her symptoms when she is out and about doing her work. She has no diarrhea. No abdominal pain. No constitutional symptoms. The ROS documented in this emergency department record has been reviewed and confirmed by me. Those systems with pertinent positive or negative responses have been documented in the HPI. All other systems are other negative and/or noncontributory. PHYSICAL EXAM: General Impression: Alert and oriented x3, not in acute distress HEENT: Normocephalic atraumatic, extra-ocular movements intact, pupils equal and reactive to light bilaterally, mucous membranes moist. Cardiovascular: Heart regular rate and rhythm Chest: Able to complete full sentences, no retractions, no tachypnea Abdomen: abdomen soft, non-tender, non-distended, no organomegaly Musculoskeletal: Pulses present and equal in all extremities, no peripheral edema Motor: no focal deficits noted Neurological: CN II-XII grossly intact, no focal motor or sensory deficits noted Skin: Intact with no visualized rashes Psych: Normal affect and mood ED course: 34-year-old female presents today with dizziness and near syncope. Vital signs upon arrival shows findings within acceptable limits. EKG is benign. Abdomen evaluation obtained. CBC unremarkable. Metabolic panel is negative. Abdominal labs negative. Urinalysis negative. Patient given fluids with antiemetics with much improved symptoms. Patient clear for discharge. She is agreeable. Patient given Zofran starter pack. She is told to go home and rest and hydrate herself adequately. EKG interpretation: Ventricular rate 85, normal sinus rhythm, CO interval 160, QRS 90, QTC 452. No CO prolongation, no QTC prolongation, no ST or T-wave changes noted. No signs of ARVD, no signs of HOCM, Uhywj-[id number]-[id number] or prolonged QT Overall, this EKG is unremarkable - Related Data Home Medications Medication Instructions Recorded Confirmed Multivitamins, Thera [Multivitamin 1 tab PO DAILY 05/12/17 05/21/20 (formulary)] atenoloL [Tenormin] 12.5 mg PO DAILY 12/26/18 05/21/20 Allergies Allergy/AdvReac Type Severity Reaction Status Date / Time No Known Allergies Allergy Verified 05/21/20 09:48 Review of Systems ROS Statement: Those systems with pertinent positive or pertinent negative responses have been documented in the HPI. ROS Other: All systems not noted in ROS Statement are negative. Past Medical History Past Medical History: Cancer, GERD/Reflux, Hypertension, Osteoarthritis (OA) Additional Past Medical History / Comment(s): Cervical cancer, stress induced htn, stable pulmonary nodules, arhtritis bilateral ankle. History of Any Multi-Drug Resistant Organisms: MRSA Date of last positivie culture/infection: 12/25/16 MDRO Source:: Left arm axilla Past Surgical History: Appendectomy, Section, Cholecystectomy, Hernia Repair, Hysterectomy, Orthopedic Surgery, Tubal Ligation Additional Past Surgical History / Comment(s): L ankle fracture with plate/screws since removed, EGD, harish fudoplication, C-sections x3, 3 umbilical hernia repairs Past Anesthesia/Blood Transfusion Reactions: Family History of Problems w/ Anesthesia, Postoperative Nausea & Vomiting (PONV) Additional Past Anesthesia/Blood Transfusion Reaction / Comment(s): Pt has PONV as well as her mother has PONV. Pt is clausterphobic Past Psychological History: Anxiety Smoking Status: Never smoker Past Alcohol Use History: None Reported Past Drug Use History: None Reported - Past Family History Mother Family Medical History: Cancer, Hypertension Additional Family Medical History / Comment(s): Breast cancer with bilateral mastectomies-now has metastasis. Father Family Medical History: Asthma, Diabetes Mellitus, Hypertension, Rheumatoid Arthritis (RA) General Exam Limitations: no limitations Course Vital Signs 05/21/20 09:03 Temperature 98.4 F Pulse Rate 84 Respiratory 18 Rate Blood Pressure 133/84 O2 Sat by Pulse 100 Oximetry Medical Decision Making - Lab Data Result diagrams: 05/21/20 09:50 05/21/20 09:50 Lab Results 05/21/20 05/21/20 05/21/20 Range/Units 09:12 09:50 09:50 WBC (3.8-10.6) k/uL RBC (3.80-5.40) m/uL Hgb (11.4-16.0) gm/dL Hct (34.0-46.0) % MCV (80.0-100.0) fL MCH (25.0-35.0) pg MCHC (31.0-37.0) g/dL RDW (11.5-15.5) % Plt Count (150-450) k/uL MPV Neutrophils % % Lymphocytes % % Monocytes % % Eosinophils % % Basophils % % Neutrophils # (1.3-7.7) k/uL Lymphocytes # (1.0-4.8) k/uL Monocytes # (0-1.0) k/uL Eosinophils # (0-0.7) k/uL Basophils # (0-0.2) k/uL Sodium (137-145) mmol/L Potassium (3.5-5.1) mmol/L Chloride (98-107) mmol/L Carbon Dioxide (22-30) mmol/L Anion Gap mmol/L BUN (7-17) mg/dL Creatinine (0.52-1.04) mg/dL Est GFR (CKD-EPI)AfAm (>60 ml/min/1.73 sqM) Est GFR (CKD-EPI)NonAf (>60 ml/min/1.73 sqM) Glucose (74-99) mg/dL POC Glucose (mg/dL) 98 (75-99) mg/dL POC Glu Presales Senior Specialist ID Mallory Leblanc Calcium (8.4-10.2) mg/dL Magnesium (1.6-2.3) mg/dL Total Bilirubin (0.2-1.3) mg/dL AST (14-36) U/L ALT (4-34) U/L Alkaline Phosphatase (38-126) U/L Total Protein (6.3-8.2) g/dL Albumin (3.5-5.0) g/dL Urine Color Light Yellow Urine Appearance Cloudy H (Clear) Urine pH 7.5 (5.0-8.0) Ur Specific [place] 1.004 (1.001-1.035) Urine Protein Negative (Negative) Urine Glucose (UA) Negative (Negative) Urine Ketones Negative (Negative) Urine Blood Negative (Negative) Urine Nitrite Negative (Negative) Urine Bilirubin Negative (Negative) Urine Urobilinogen <2.0 (<2.0) mg/dL Ur Leukocyte Esterase Negative (Negative) Urine WBC 1 (0-5) /hpf Ur Squamous Epith Cells 9 H (0-4) /hpf Urine Bacteria Rare H (None) /hpf Urine HCG, Qual Not Detected (Not Detectd) 05/21/20 05/21/20 Range/Units 09:50 09:50 WBC 5.1 (3.8-10.6) k/uL RBC 4.23 (3.80-5.40) m/uL Hgb 13.8 (11.4-16.0) gm/dL Hct 40.3 (34.0-46.0) % MCV 95.2 (80.0-100.0) fL MCH 32.6 (25.0-35.0) pg MCHC 34.3 (31.0-37.0) g/dL RDW 12.1 (11.5-15.5) % Plt Count 199 (150-450) k/uL MPV 8.2 Neutrophils % 59 % Lymphocytes % 30 % Monocytes % 6 % Eosinophils % 2 % Basophils % 1 % Neutrophils # 3.0 (1.3-7.7) k/uL Lymphocytes # 1.5 (1.0-4.8) k/uL Monocytes # 0.3 (0-1.0) k/uL Eosinophils # 0.1 (0-0.7) k/uL Basophils # 0.0 (0-0.2) k/uL Sodium 141 (137-145) mmol/L Potassium 4.2 (3.5-5.1) mmol/L Chloride 106 (98-107) mmol/L Carbon Dioxide 27 (22-30) mmol/L Anion Gap 8 mmol/L BUN 12 (7-17) mg/dL Creatinine 0.69 (0.52-1.04) mg/dL Est GFR (CKD-EPI)AfAm >90 (>60 ml/min/1.73 sqM) Est GFR (CKD-EPI)NonAf >90 (>60 ml/min/1.73 sqM) Glucose 84 (74-99) mg/dL POC Glucose (mg/dL) (75-99) mg/dL POC Glu Presales Senior Specialist ID Calcium 9.8 (8.4-10.2) mg/dL Magnesium 2.0 (1.6-2.3) mg/dL Total Bilirubin 0.5 (0.2-1.3) mg/dL AST 37 H (14-36) U/L ALT 25 (4-34) U/L Alkaline Phosphatase 62 (38-126) U/L Total Protein 8.0 (6.3-8.2) g/dL Albumin 4.9 (3.5-5.0) g/dL Urine Color Urine Appearance (Clear) Urine pH (5.0-8.0) Ur Specific [place] (1.001-1.035) Urine Protein (Negative) Urine Glucose (UA) (Negative) Urine Ketones (Negative) Urine Blood (Negative) Urine Nitrite (Negative) Urine Bilirubin (Negative) Urine Urobilinogen (<2.0) mg/dL Ur Leukocyte Esterase (Negative) Urine WBC (0-5) /hpf Ur Squamous Epith Cells (0-4) /hpf Urine Bacteria (None) /hpf Urine HCG, Qual (Not Detectd) Disposition Clinical Impression: Dizziness Disposition: HOME SELF-CARE Condition: Good Instructions (If sedation given, give patient instructions): Dizziness (ED) Is patient prescribed a controlled substance at d/c from ED?: No Referrals: Amparo Felder MD [Primary Care Provider] - 1-2 days Time of Disposition: 10:48
[2020-05-21 10:19] LABS: Basophils % (A) 1 %; Eosinophils # (A) 0.1 k/uL (0-0.7); Eosinophils % (A) 2 %; HCT 40.3 % (34.0-46.0); HGB 13.8 gm/dL (11.4-16.0); Lymphocytes # (A) 1.5 k/uL (1.0-4.8); Lymphocytes % (A) 30 %; MCH 32.6 pg (25.0-35.0); MCHC 34.3 g/dL (31.0-37.0); MCV 95.2 fL (80.0-100.0); Mean Platelet Volume 8.2; Monocytes # (A) 0.3 k/uL (0-1.0); Monocytes % (A) 6 %; Neutrophils % (A) 59 %; Platelet Count 199 k/uL (150-450); RBC 4.23 m/uL (3.80-5.40); RDW 12.1 % (11.5-15.5); WBC 5.1 k/uL (3.8-10.6)
[2020-05-21 10:22] LABS: Appearance,Urine Cloudy (Clear); Bacteria,Urine Rare /hpf; Bilirubin,Urine Negative (Negative); Blood,Urine Negative (Negative); Color,Urine Light Yellow; Glucose,Urine (UA) Negative (Negative); Ketones,Urine Negative (Negative); Leukocyte Esterase,Urine Negative (Negative); Nitrite,Urine Negative (Negative); PH, Urine 7.5 (5.0-8.0); Protein,Urine Negative (Negative); Specific Gravity,Urine 1.004 (1.001-1.035); Squamous Epithelial Cell,Urine 9 /hpf (0-4); Urobilinogen,Urine <2.0 mg/dL (<2.0); WBC,Urine 1 /hpf (0-5)
[2020-05-21 10:36] LABS: ALT 25 U/L (4-34); AST 37 U/L (14-36); African American GFR (CKD) >90 (>60 ml/min/1.73 sqM); Albumin 4.9 g/dL (3.5-5.0); Alkaline Phosphatase 62 U/L (38-126); Anion Gap 8 mmol/L; Blood Urea Nitrogen 12 mg/dL (7-17); Calcium 9.8 mg/dL (8.4-10.2); Carbon Dioxide 27 mmol/L (22-30); Chloride 106 mmol/L (98-107); Glucose 84 mg/dL (74-99); Non-African American GFR(CKD) >90 (>60 ml/min/1.73 sqM); Potassium 4.2 mmol/L (3.5-5.1); Sodium 141 mmol/L (137-145); Total Bilirubin 0.5 mg/dL (0.2-1.3)
[2020-05-21] MEDS ORDERED: ONDANSETRON 4 MG ODT STARTER PACK 2 TAB BTL PO STA (10:48)
[2020-05-21 11:03] VITALS: BP 122/80; PULSE 64
== END 2020-05-21 10:58 | disposition home or self-care (01) ==
LOC: EC 08:53
DX: R42 Dizziness and giddiness (principal); R55 Syncope and collapse; I10 Essential (primary) hypertension; F41.9 Anxiety disorder, unspecified; Z79.899 Other long term (current) drug therapy; Z85.41 Personal history of malignant neoplasm of cervix uteri
CPT/HCPCS: 36415; 80053; 83735; 85025; 81001; 81025; 99285; 96374; 96361; J2405; 93005

== ENCOUNTER 2020-07-13 21:09 | Emergency (ER) | payer OTHER ==
[2020-07-13 21:17] VITALS: BP 157/97; PULSE 73; RESP 18; TEMP 98.8
--- NOTE | 2020-07-13 21:27 | ED ---
General Adult HPI - General Chief complaint: ENT Stated complaint: Poss Allergic Reaction Time Seen by Provider: 07/13/20 21:19 Source: patient Mode of arrival: ambulatory Limitations: no limitations - History of Present Illness Initial comments: 34 year-old female patient presents to the emergency department today for evaluation of left-sided neck swelling and ear pressure. Patient states that symptoms started shortly prior to arrival. States she swallowed and choked a little bit and then developed some pressure on the left side of her neck and in to her left ear. States she had decreased hearing to the left ear. States she felt fine prior to this. States she is swallowing without difficulty. Breathing without difficulty. Denies any rash, lip swelling, tongue swelling. Denies any recent fever or chills. Denies any pain to the area. - Related Data Home Medications Medication Instructions Recorded Confirmed Multivitamins, Thera [Multivitamin 1 tab PO DAILY 05/12/17 05/21/20 (formulary)] atenoloL [Tenormin] 12.5 mg PO DAILY 12/26/18 05/21/20 Allergies Allergy/AdvReac Type Severity Reaction Status Date / Time No Known Allergies Allergy Verified 05/21/20 09:48 Review of Systems ROS Statement: Those systems with pertinent positive or pertinent negative responses have been documented in the HPI. ROS Other: All systems not noted in ROS Statement are negative. Past Medical History Past Medical History: Cancer, GERD/Reflux, Hypertension, Osteoarthritis (OA) Additional Past Medical History / Comment(s): Cervical cancer, stress induced htn, stable pulmonary nodules, arhtritis bilateral ankle. History of Any Multi-Drug Resistant Organisms: MRSA Date of last positivie culture/infection: 12/25/16 MDRO Source:: Left arm axilla Past Surgical History: Appendectomy, Section, Cholecystectomy, Hernia Repair, Hysterectomy, Orthopedic Surgery, Tubal Ligation Additional Past Surgical History / Comment(s): L ankle fracture with plate/screws since removed, EGD, harish fudoplication, C-sections x3, 3 umbilical hernia repairs Past Anesthesia/Blood Transfusion Reactions: Family History of Problems w/ Anesthesia, Postoperative Nausea & Vomiting (PONV) Additional Past Anesthesia/Blood Transfusion Reaction / Comment(s): Pt has PONV as well as her mother has PONV. Pt is clausterphobic Past Psychological History: Anxiety Smoking Status: Never smoker Past Alcohol Use History: None Reported Past Drug Use History: None Reported - Past Family History Mother Family Medical History: Cancer, Hypertension Additional Family Medical History / Comment(s): Breast cancer with bilateral mastectomies-now has metastasis. Father Family Medical History: Asthma, Diabetes Mellitus, Hypertension, Rheumatoid Arthritis (RA) General Exam Limitations: no limitations General appearance: alert, in no apparent distress, other (This is a well- developed, well-nourished adult female patient in no acute distress. Vital signs upon presentation are temperature 98.8F, pulse 73, respirations 18, blood pressure 157/97, pulse ox 97% on room air.) ENT exam: Present: normal exam, normal oropharynx (Tonsils are symmetric, no exudate or erythema. Uvula is midline.), mucous membranes moist, TM's normal bilaterally (Pearly with no effusion) Neck exam: Present: normal inspection, other (Left submandibular gland enlargement, mild. No tenderness. No lymphadenopathy.). Absent: tenderness, meningismus, lymphadenopathy Respiratory exam: Present: normal lung sounds bilaterally. Absent: respiratory distress, wheezes, rales, rhonchi, stridor Cardiovascular Exam: Present: regular rate, normal rhythm, normal heart sounds. Absent: systolic murmur, diastolic murmur, rubs, gallop, clicks Neurological exam: Present: alert, oriented X3, CN II-XII intact Psychiatric exam: Present: normal affect, normal mood Skin exam: Present: warm, dry, intact, normal color. Absent: rash Course Vital Signs 07/13/20 21:13 Temperature 98.8 F Pulse Rate 73 Respiratory 18 Rate Blood Pressure 157/97 O2 Sat by Pulse 97 Oximetry Medical Decision Making - Medical Decision Making 34-year-old female patient presents to the emergency department today for evaluation of swelling to the left neck and pressure to the left ear. Physical examination did reveal mild swelling to the left submandibular gland with no tenderness. No lymphadenopathy. Tympanic membranes are unremarkable. She is afebrile, vital signs. No difficulty swallowing or breathing. We did discuss possible sialolith versus early sialoadenitis. She is instructed to purchase lemon drops and second and throughout the day. If symptoms are not improved in 2-3 days she is instructed to follow up the ENT specialist. She is instructed to return immediately should she have any difficulty swallowing or breathing or develops a fever. She is instructed to follow-up with her primary care physician for recheck in one to days. Return parameters were discussed in detail. She verbalizes understanding and agrees with this plan. Disposition Clinical Impression: Sialolithiasis Disposition: HOME SELF-CARE Condition: Good Instructions (If sedation given, give patient instructions): Sialoadenitis (ED) Additional Instructions: Purchase lemon drops and suck on them throughout the day. Symptoms should clear in 2-3 days. If you have any worsening symptoms or concerns return to the emergency department immediately. If you continue to have swelling beyond 2-3 days follow up with ENT for further evaluation. Is patient prescribed a controlled substance at d/c from ED?: No Referrals: Amparo Felder MD [Primary Care Provider] - 1-2 days Neo Rogers MD [STAFF PHYSICIAN] - 1-2 days Time of Disposition: 21:27
== END 2020-07-13 21:43 | disposition home or self-care (01) ==
LOC: EC 21:09
DX: K11.5 Sialolithiasis (principal); I10 Essential (primary) hypertension; Z79.899 Other long term (current) drug therapy; Z85.41 Personal history of malignant neoplasm of cervix uteri; Z86.14 Personal history of Methicillin resistant Staphylococcus aureus infection; Z90.49 Acquired absence of other specified parts of digestive tract; Z90.710 Acquired absence of both cervix and uterus; Z98.51 Tubal ligation status; Z80.3 Family history of malignant neoplasm of breast
CPT/HCPCS: 99283

== ENCOUNTER 2020-08-08 08:51 | Emergency (ER) | payer OTHER ==
[2020-08-08 09:06] VITALS: BP 130/83; PULSE 83; RESP 18; TEMP 98.4
--- NOTE | 2020-08-08 09:39 | ED ---
Headache HPI - General Chief Complaint: Headache Stated Complaint: fall 08/03/20 headaches Time Seen by Provider: 08/08/20 09:08 Source: RN notes reviewed Mode of arrival: ambulatory Limitations: no limitations - History of Present Illness Initial Comments: This a 34-year-old female presents emergency Department chief complaint of a headache. Patient states she's had pressure across her forehead for proximal one week. Patient states that this did start after she tripped and bumped her head and go wall states that she did not initially have a headache and had no loss consciousness no blurred vision no focal weakness denies any current nausea vomiting. No paresthesias. Patient states she feels like she has a sinus infection. Patient does admit to mild nasal congestion no other complaints of fevers chills neck pain neck stiffness. - Related Data Home Medications Medication Instructions Recorded Confirmed Multivitamins, Thera [Multivitamin 1 tab PO DAILY 05/12/17 05/21/20 (formulary)] atenoloL [Tenormin] 12.5 mg PO DAILY 12/26/18 05/21/20 Previous Rx's Medication Instructions Recorded Amoxicillin/Potassium Clav 1 tab PO Q12HR #20 tab 08/08/20 [Augmentin 875-125 Tablet] Allergies Allergy/AdvReac Type Severity Reaction Status Date / Time No Known Allergies Allergy Verified 08/08/20 09:04 Review of Systems ROS Statement: Those systems with pertinent positive or pertinent negative responses have been documented in the HPI. ROS Other: All systems not noted in ROS Statement are negative. Past Medical History Past Medical History: Cancer, GERD/Reflux, Hypertension, Osteoarthritis (OA) Additional Past Medical History / Comment(s): Cervical cancer, stress induced htn, stable pulmonary nodules, arhtritis bilateral ankle. History of Any Multi-Drug Resistant Organisms: MRSA Date of last positivie culture/infection: 12/25/16 MDRO Source:: Left arm axilla Past Surgical History: Appendectomy, Section, Cholecystectomy, Hernia Repair, Hysterectomy, Orthopedic Surgery, Tubal Ligation Additional Past Surgical History / Comment(s): L ankle fracture with plate/screws since removed, EGD, harish fudoplication, C-sections x3, 3 umbilical hernia repairs Past Anesthesia/Blood Transfusion Reactions: Family History of Problems w/ Anesthesia, Postoperative Nausea & Vomiting (PONV) Additional Past Anesthesia/Blood Transfusion Reaction / Comment(s): Pt has PONV as well as her mother has PONV. Pt is clausterphobic Past Psychological History: Anxiety Smoking Status: Never smoker Past Alcohol Use History: Occasional Past Drug Use History: None Reported - Past Family History Mother Family Medical History: Cancer, Hypertension Additional Family Medical History / Comment(s): Breast cancer with bilateral mastectomies-now has metastasis. Father Family Medical History: Asthma, Diabetes Mellitus, Hypertension, Rheumatoid Arthritis (RA) General Exam Limitations: no limitations General appearance: alert, in no apparent distress Head exam: Present: atraumatic, normocephalic, normal inspection Eye exam: Present: normal appearance, PERRL, EOMI. Absent: scleral icterus, conjunctival injection, periorbital swelling ENT exam: Present: normal exam, normal oropharynx, mucous membranes moist, TM's normal bilaterally, normal external ear exam Neck exam: Present: normal inspection, full ROM. Absent: tenderness, meningismus, lymphadenopathy Respiratory exam: Present: normal lung sounds bilaterally. Absent: respiratory distress, wheezes, rales, rhonchi, stridor Cardiovascular Exam: Present: regular rate, normal rhythm, normal heart sounds. Absent: systolic murmur, diastolic murmur, rubs, gallop, clicks Neurological exam: Present: alert, oriented X3, CN II-XII intact, reflexes normal, other (Finger to nose intact bilaterally). Absent: motor sensory deficit Skin exam: Present: warm, dry, intact, normal color. Absent: rash Course Vital Signs 08/08/20 09:04 Temperature 98.4 F Pulse Rate 83 Respiratory 18 Rate Blood Pressure 130/83 O2 Sat by Pulse 100 Oximetry Medical Decision Making - Medical Decision Making 34-year-old female presented from for headaches, facial pressure patient's had some increasing nasal congestion pressure. Patient did have a fall. She struck her head CT is obtained negative patient neurologically intact. Patient states that she's had recurrent sinus issues will be treated time follow-up with PCP, neurology if no improvement of symptoms. Disposition Clinical Impression: Headache, Sinusitis Disposition: HOME SELF-CARE Condition: Stable Instructions (If sedation given, give patient instructions): Acute Headache (ED) Additional Instructions: Please return to the Emergency Department if symptoms worsen or any other concerns. Prescriptions: Amoxicillin/Potassium Clav [Augmentin 875-125 Tablet] 1 tab PO Q12HR #20 tab Is patient prescribed a controlled substance at d/c from ED?: No Referrals: Amparo Felder MD [Primary Care Provider] - 1-2 days Morgan Albarran MD [REFERRING] - 1-2 days Time of Disposition: 10:35
--- NOTE | 2020-08-08 10:06 | CT ---
EXAMINATION TYPE: CT brain wo con DATE OF EXAM: 08/08/2020 COMPARISON: None HISTORY: Fall with injury. Frontal headache and pressure. CT DLP: 1099.[address] of the brain was performed. The ventricles, basal cisterns and sulci overlying the cerebral convexities demonstrate a normal appe arance. There is no evidence for intracranial hemorrhage or sulcal effacement. No mass effects are seen. Osseous calvarium is intact. If symptoms persist consider MRI as clinically warranted. IMPRESSION: 1. No acute intracranial process is seen at this time.
== END 2020-08-08 10:41 | disposition home or self-care (01) ==
LOC: EC 08:51
DX: J32.9 Chronic sinusitis, unspecified (principal); F41.9 Anxiety disorder, unspecified; Z79.899 Other long term (current) drug therapy; Z85.41 Personal history of malignant neoplasm of cervix uteri
CPT/HCPCS: 70450; 99284

== ENCOUNTER 2020-12-01 12:40 | Emergency (ER) | payer OTHER ==
[2020-12-01 12:44] VITALS: RESP 20; TEMP 98.7
[2020-12-01] MEDS ORDERED: ONDANSETRON 4 MG/2 ML VIAL IVP STA (13:57)
--- NOTE | 2020-12-01 14:00 | ED ---
Abdominal Pain HPI - General Chief Complaint: Abdominal Pain Stated Complaint: Abd pain Time Seen by Provider: 12/01/20 13:47 Source: patient Mode of arrival: ambulatory Limitations: no limitations - History of Present Illness Initial Comments: 35-year-old female with history of hiatal hernia presents to the emergency room with the chief complaint of abdominal pain. States several years ago she underwent Dar fundoplication for the hiatal hernia which initially was a success but states now she has gradually noticed a return of her symptoms. She reports her symptoms haven't gradually more noticeable over the last week and she noticed small "balls" in the upper abdominal region. She also reports today after turning her body is certain way, she felt a certain "pop" in the epigastric region and now she is experiencing a burning sensation in the area. She does report nausea but denies any vomiting or diarrhea. Reports pain is exacerbated with palpation to the region. She denies any chest pain or shortness of breath. - Related Data Home Medications Medication Instructions Recorded Confirmed atenoloL [Tenormin] 12.5 mg PO DAILY 12/26/18 12/01/20 LORazepam [Ativan] 0.5 mg PO DAILY PRN 12/01/20 12/01/20 Allergies Allergy/AdvReac Type Severity Reaction Status Date / Time No Known Allergies Allergy Verified 12/01/20 14:21 Review of Systems ROS Statement: Those systems with pertinent positive or pertinent negative responses have been documented in the HPI. ROS Other: All systems not noted in ROS Statement are negative. Past Medical History Past Medical History: Cancer, GERD/Reflux, Hypertension, Osteoarthritis (OA) Additional Past Medical History / Comment(s): Cervical cancer, stress induced htn, stable pulmonary nodules, arhtritis bilateral ankle. History of Any Multi-Drug Resistant Organisms: MRSA Date of last positivie culture/infection: 12/25/16 MDRO Source:: Left arm axilla Past Surgical History: Appendectomy, Section, Cholecystectomy, Hernia Repair, Hysterectomy, Orthopedic Surgery, Tubal Ligation Additional Past Surgical History / Comment(s): L ankle fracture with plate/sc rews since removed, EGD, harish fudoplication, C-sections x3, 3 umbilical hernia repairs Past Anesthesia/Blood Transfusion Reactions: Family History of Problems w/ Anesthesia, Postoperative Nausea & Vomiting (PONV) Additional Past Anesthesia/Blood Transfusion Reaction / Comment(s): Pt has PONV as well as her mother has PONV. Pt is clausterphobic Past Psychological History: Anxiety Smoking Status: Never smoker Past Alcohol Use History: Occasional Past Drug Use History: None Reported - Past Family History Mother Family Medical History: Cancer, Hypertension Additional Family Medical History / Comment(s): Breast cancer with bilateral mastectomies-now has metastasis. Father Family Medical History: Asthma, Diabetes Mellitus, Hypertension, Rheumatoid Arthritis (RA) General Exam Limitations: no limitations General appearance: alert, in no apparent distress Head exam: Present: atraumatic, normocephalic, normal inspection Eye exam: Present: normal appearance, PERRL, EOMI Pupils: Present: normal accommodation ENT exam: Present: normal exam, normal oropharynx, mucous membranes moist, TM's normal bilaterally, normal external ear exam Neck exam: Present: normal inspection, full ROM. Absent: tenderness Respiratory exam: Present: normal lung sounds bilaterally. Absent: respiratory distress, wheezes, rales, rhonchi, stridor, chest wall tenderness, accessory muscle use Cardiovascular Exam: Present: regular rate, normal rhythm, normal heart sounds. Absent: systolic murmur, diastolic murmur GI/Abdominal exam: Present: soft, tenderness (Tenderness in the left upper quadrant epigastric region), diminished bowel sounds, mass (Small palpable mass noted in the epigastric region measuring approximately 1 cm in diameter. No protrusions noted along the abdominal wall). Absent: distended, guarding, rebound, rigid, bruit, pulsatile mass Extremities exam: Present: normal inspection, full ROM, normal capillary refill. Absent: tenderness, pedal edema, joint swelling Back exam: Present: normal inspection, full ROM. Absent: tenderness, CVA tenderness (R), CVA tenderness (L) Neurological exam: Present: alert, oriented X3 Psychiatric exam: Present: normal affect, normal mood Skin exam: Present: warm, dry, intact, normal color Course Vital Signs 12/01/20 12/01/20 12/01/20 12:42 14:34 15:44 Temperature 98.7 F Pulse Rate 85 77 74 Respiratory 20 20 20 Rate Blood Pressure 142/86 137/78 124/83 O2 Sat by Pulse 100 100 100 Oximetry Medical Decision Making - Medical Decision Making 35-year-old female with history of hiatal hernia presents to the emergency room with the chief complaint of abdominal pain. Physical examination epigastric and left upper quadrant mild tenderness. Laboratory work is unremarkable. CT of abdomen and pelvis reveals omental fat stranding in the upper abdominal region that appears to be new compared to old exam. This could relate to some nonspecific inflammatory changes. Return parameters were discussed with patient was understanding and agreeable. She was advised to follow-up with her surgeon. Case discussed with Dr. Rao - Lab Data Result diagrams: 12/01/20 14:23 12/01/20 14:23 Lab Results 12/01/20 12/01/20 12/01/20 Range/Units 14:23 14:23 14:23 WBC 11.1 H (3.8-10.6) k/uL RBC 4.34 (3.80-5.40) m/uL Hgb 14.3 (11.4-16.0) gm/dL Hct 41.6 (34.0-46.0) % MCV 96.0 (80.0-100.0) fL MCH 32.9 (25.0-35.0) pg MCHC 34.3 (31.0-37.0) g/dL RDW 12.7 (11.5-15.5) % Plt Count 204 (150-450) k/uL MPV 7.9 Neutrophils % 75 % Lymphocytes % 18 % Monocytes % 5 % Eosinophils % 1 % Basophils % 0 % Neutrophils # 8.3 H (1.3-7.7) k/uL Lymphocytes # 2.0 (1.0-4.8) k/uL Monocytes # 0.6 (0-1.0) k/uL Eosinophils # 0.1 (0-0.7) k/uL Basophils # 0.1 (0-0.2) k/uL Sodium (137-145) mmol/L Potassium (3.5-5.1) mmol/L Chloride (98-107) mmol/L Carbon Dioxide (22-30) mmol/L Anion Gap mmol/L BUN (7-17) mg/dL Creatinine (0.52-1.04) mg/dL Est GFR (CKD-EPI)AfAm (>60 ml/min/1.73 sqM) Est GFR (CKD-EPI)NonAf (>60 ml/min/1.73 sqM) Glucose (74-99) mg/dL Calcium (8.4-10.2) mg/dL Total Bilirubin (0.2-1.3) mg/dL AST (14-36) U/L ALT (4-34) U/L Alkaline Phosphatase (38-126) U/L Total Protein (6.3-8.2) g/dL Albumin (3.5-5.0) g/dL Lipase (23-300) U/L Urine Color Yellow Urine Appearance Clear (Clear) Urine pH 5.5 (5.0-8.0) Ur Specific [place] 1.015 (1.001-1.035) Urine Protein Negative (Negative) Urine Glucose (UA) Negative (Negative) Urine Ketones Negative (Negative) Urine Blood Negative (Negative) Urine Nitrite Negative (Negative) Urine Bilirubin Negative (Negative) Urine Urobilinogen <2.0 (<2.0) mg/dL Ur Leukocyte Esterase Negative (Negative) Urine HCG, Qual Not Detected (Not Detectd) 12/01/20 Range/Units 14:23 WBC (3.8-10.6) k/uL RBC (3.80-5.40) m/uL Hgb (11.4-16.0) gm/dL Hct (34.0-46.0) % MCV (80.0-100.0) fL MCH (25.0-35.0) pg MCHC (31.0-37.0) g/dL RDW (11.5-15.5) % Plt Count (150-450) k/uL MPV Neutrophils % % Lymphocytes % % Monocytes % % Eosinophils % % Basophils % % Neutrophils # (1.3-7.7) k/uL Lymphocytes # (1.0-4.8) k/uL Monocytes # (0-1.0) k/uL Eosinophils # (0-0.7) k/uL Basophils # (0-0.2) k/uL Sodium 140 (137-145) mmol/L Potassium 4.3 (3.5-5.1) mmol/L Chloride 109 H (98-107) mmol/L Carbon Dioxide 24 (22-30) mmol/L Anion Gap 7 mmol/L BUN 13 (7-17) mg/dL Creatinine 0.76 (0.52-1.04) mg/dL Est GFR (CKD-EPI)AfAm >90 (>60 ml/min/1.73 sqM) Est GFR (CKD-EPI)NonAf >90 (>60 ml/min/1.73 sqM) Glucose 90 (74-99) mg/dL Calcium 10.1 (8.4-10.2) mg/dL Total Bilirubin 0.4 (0.2-1.3) mg/dL AST 30 (14-36) U/L ALT 21 (4-34) U/L Alkaline Phosphatase 71 (38-126) U/L Total Protein 8.0 (6.3-8.2) g/dL Albumin 5.1 H (3.5-5.0) g/dL Lipase 183 (23-300) U/L Urine Color Urine Appearance (Clear) Urine pH (5.0-8.0) Ur Specific [place] (1.001-1.035) Urine Protein (Negative) Urine Glucose (UA) (Negative) Urine Ketones (Negative) Urine Blood (Negative) Urine Nitrite (Negative) Urine Bilirubin (Negative) Urine Urobilinogen (<2.0) mg/dL Ur Leukocyte Esterase (Negative) Urine HCG, Qual (Not Detectd) Disposition Clinical Impression: Abdominal pain Disposition: HOME SELF-CARE Condition: Stable Instructions (If sedation given, give patient instructions): Abdominal Pain (ED) Additional Instructions: Please return to the Emergency Department if symptoms worsen or any other concerns. Is patient prescribed a controlled substance at d/c from ED?: No Referrals: Amparo Felder MD [Primary Care Provider] - 1-2 days Time of Disposition: 15:53
[2020-12-01 14:38] LABS: Basophils # (A) 0.1 k/uL (0-0.2); Basophils % (A) 0 %; Eosinophils # (A) 0.1 k/uL (0-0.7); Eosinophils % (A) 1 %; HCT 41.6 % (34.0-46.0); HGB 14.3 gm/dL (11.4-16.0); Lymphocytes % (A) 18 %; MCH 32.9 pg (25.0-35.0); MCHC 34.3 g/dL (31.0-37.0); Mean Platelet Volume 7.9; Monocytes # (A) 0.6 k/uL (0-1.0); Monocytes % (A) 5 %; Neutrophils # (A) 8.3 k/uL (1.3-7.7); Neutrophils % (A) 75 %; Platelet Count 204 k/uL (150-450); RBC 4.34 m/uL (3.80-5.40); RDW 12.7 % (11.5-15.5); WBC 11.1 k/uL (3.8-10.6)
[2020-12-01 14:48] LABS: Appearance,Urine Clear (Clear); Bilirubin,Urine Negative (Negative); Blood,Urine Negative (Negative); Color,Urine Yellow; Glucose,Urine (UA) Negative (Negative); Ketones,Urine Negative (Negative); Leukocyte Esterase,Urine Negative (Negative); Nitrite,Urine Negative (Negative); PH, Urine 5.5 (5.0-8.0); Protein,Urine Negative (Negative); Specific Gravity,Urine 1.015 (1.001-1.035); Urobilinogen,Urine <2.0 mg/dL (<2.0)
[2020-12-01 14:49] LABS: ALT 21 U/L (4-34); AST 30 U/L (14-36); African American GFR (CKD) >90 (>60 ml/min/1.73 sqM); Albumin 5.1 g/dL (3.5-5.0); Alkaline Phosphatase 71 U/L (38-126); Anion Gap 7 mmol/L; Blood Urea Nitrogen 13 mg/dL (7-17); Calcium 10.1 mg/dL (8.4-10.2); Carbon Dioxide 24 mmol/L (22-30); Chloride 109 mmol/L (98-107); Glucose 90 mg/dL (74-99); Lipase 183 U/L (23-300); Non-African American GFR(CKD) >90 (>60 ml/min/1.73 sqM); Potassium 4.3 mmol/L (3.5-5.1); Sodium 140 mmol/L (137-145); Total Bilirubin 0.4 mg/dL (0.2-1.3)
--- NOTE | 2020-12-01 15:44 | CT ---
EXAMINATION TYPE: CT abdomen pelvis w con DATE OF EXAM: 12/01/2020 COMPARISON: 08/09/2019 HISTORY: epigastric mass CT DLP: 577.4 mGycm Automated exposure control for dose reduction was used. CONTRAST: Performed with IV Contrast, patient injected with 100 mL of Isovue 300. Lung bases are clear. There is no pleural effusion. Heart size is normal. There is no pericardial eff usion. There are clips at the gastroesophageal junction. Stomach is intact. There are clips from chol ecystectomy. Liver and spleen are intact. The bile ducts are not dilated. There is no pancreatic mass . There is no adrenal mass. Kidneys show satisfactory contrast opacification. There is no hydronephrosi s. Ureters are not dilated. There is no retroperitoneal adenopathy. Bladder distends smoothly. There is small amount of low-density free fluid in the pelvis. There is no inguinal hernia. There is appare nt hysterectomy. I see no pelvic mass. Appendix is not definitely seen. There is no sign of thickened appendix. There is some minimal omental fat stranding in the upper abdomen. There is no evidence of a bowel obs truction. There is no sign of free air. The lumbar vertebra have normal alignment. Posterior elements are intact. Disc spaces are normal. The re is no compression fracture. Bony pelvis is intact. Hip joints are intact. IMPRESSION: . Omental fat stranding in the upper abdomen appears new compared to old exam. Clinical significance is not clear. This could relate to some nonspecific inflammatory process. There is small amount of free fluid in the pelvis similar to old exam. Appendix not seen. No sign of appendicitis
[2020-12-01 15:45] VITALS: BP 124/83; PULSE 74
== END 2020-12-01 16:07 | disposition home or self-care (01) ==
LOC: EC 12:40
DX: R10.13 Epigastric pain (principal); R10.12 Left upper quadrant pain; R19.06 Epigastric swelling, mass or lump; I10 Essential (primary) hypertension; K21.9 Gastro-esophageal reflux disease without esophagitis; F41.9 Anxiety disorder, unspecified; Z79.899 Other long term (current) drug therapy; Z85.41 Personal history of malignant neoplasm of cervix uteri
CPT/HCPCS: 36415; 80053; 83690; 85025; 81003; 81025; 74177; 99284; 96374; J2405; Q9967

== ENCOUNTER 2021-01-27 14:09 | Emergency (ER) | payer OTHER ==
[2021-01-27] MEDS ORDERED: ONDANSETRON 4 MG/2 ML VIAL IVP STA (15:22)
[2021-01-27] MEDS ORDERED: SODIUM CHLORIDE 0.9% 1,000 ML IV STA (15:22)
[2021-01-27] MEDS ORDERED: KETOROLAC 15 MG/ML 1 ML VIAL IVP STA (15:22)
[2021-01-27] MEDS ORDERED: diphenhydrAMINE 50 MG/ML 1 ML VIAL IVP STA (15:22)
--- NOTE | 2021-01-27 15:25 | ED ---
General Adult HPI - General Chief complaint: Headache Stated complaint: Dizziness Time Seen by Provider: 01/27/21 15:12 Source: patient Mode of arrival: ambulatory Limitations: no limitations - History of Present Illness Initial comments: Dictation was produced using [employer] dictation software. please excuse any grammatical, word or spelling errors. Chief Complaint: 35-year-old female presents with acute on chronic headaches. History of Present Illness: Is a 35-year-old female she presents today with a headache ongoing for approximately one. She was at work when her headache started to feel acutely worse. She states it's bilateral retro-orbital with a pressure-like sensation to her forehead. She states it is worse in the morning and when she bends 4. Denies a runny nose. No fevers. No radiation of symptoms. States that the pain is moderate and not severe. Patient has history of hypertension. She has history of hysterectomy secondary to pelvic cancer. Laceration to have some tingling to her bilateral hands. No weakness to extremities. The ROS documented in this emergency department record has been reviewed and confirmed by me. Those systems with pertinent positive or negative responses have been documented in the HPI. All other systems are other negative and/or noncontributory. PHYSICAL EXAM: General Impression: Alert and oriented x3, not in acute distress HEENT: Normocephalic atraumatic, extra-ocular movements intact, pupils equal and reactive to light bilaterally, mucous membranes moist. Cardiovascular: Heart regular rate and rhythm Chest: Able to complete full sentences, no retractions, no tachypnea Abdomen: abdomen soft, non-tender, non-distended, no organomegaly Musculoskeletal: Pulses present and equal in all extremities, no peripheral edema Motor: no focal deficits noted Neurological: CN II-XII grossly intact, no focal motor or sensory deficits noted, not ataxic Skin: Intact with no visualized rashes Psych: Normal affect and mood ED course: 35-year-old female presents to the emergency department for headache. Patient has been having headaches that have been ongoing on a daily basis for the last month. Vital signs upon arrival are within acceptable limits. She states that her headaches have a diurnal pattern worse in the morning. She has history of hysterectomy. Computed tomography scan ordered for suspicion of possible symptomatic brain mass. Her neurologic exam is unremarkable.Computed tomography scan of brain is unremarkable. Laboratory evaluation is unremar kable. Patient given headache cocktail with improvement of symptoms. She has no high-risk features. Patient discharged told to follow-up with primary care physician for outpatient workup of headache. - Related Data Home Medications Medication Instructions Recorded Confirmed atenoloL [Tenormin] 12.5 mg PO DAILY 12/26/18 12/01/20 LORazepam [Ativan] 0.5 mg PO DAILY PRN 12/01/20 12/01/20 Allergies Allergy/AdvReac Type Severity Reaction Status Date / Time No Known Allergies Allergy Verified 01/27/21 14:35 Review of Systems ROS Statement: Those systems with pertinent positive or pertinent negative responses have been documented in the HPI. ROS Other: All systems not noted in ROS Statement are negative. Past Medical History Past Medical History: Cancer, GERD/Reflux, Hypertension, Osteoarthritis (OA) Additional Past Medical History / Comment(s): Cervical cancer, stress induced htn, stable pulmonary nodules, arhtritis bilateral ankle. History of Any Multi-Drug Resistant Organisms: MRSA Date of last positivie culture/infection: 12/25/16 MDRO Source:: Left arm axilla Past Surgical History: Appendectomy, Section, Cholecystectomy, Hernia Repair, Hysterectomy, Orthopedic Surgery, Tubal Ligation Additional Past Surgical History / Comment(s): L ankle fracture with plate/screws since removed, EGD, harish fudoplication, C-sections x3, 3 umbilical hernia repairs Past Anesthesia/Blood Transfusion Reactions: Family History of Problems w/ Anesthesia, Postoperative Nausea & Vomiting (PONV) Additional Past Anesthesia/Blood Transfusion Reaction / Comment(s): Pt has PONV as well as her mother has PONV. Pt is clausterphobic Past Psychological History: Anxiety Smoking Status: Never smoker Past Alcohol Use History: Occasional Past Drug Use History: None Reported - Past Family History Mother Family Medical History: Cancer, Hypertension Additional Family Medical History / Comment(s): Breast cancer with bilateral mastectomies-now has metastasis. Father Family Medical History: Asthma, Diabetes Mellitus, Hypertension, Rheumatoid Arthritis (RA) General Exam Limitations: no limitations Course Vital Signs 01/27/21 01/27/21 14:35 15:37 Temperature 98.3 F Pulse Rate 81 83 Respiratory 16 18 Rate Blood Pressure 133/84 165/105 O2 Sat by Pulse 98 100 Oximetry Medical Decision Making - Lab Data Result diagrams: 01/27/21 15:40 01/27/21 15:40 Lab Results 01/27/21 01/27/21 Range/Units 15:40 15:40 WBC 9.1 (3.8-10.6) k/uL RBC 3.88 (3.80-5.40) m/uL Hgb 12.9 (11.4-16.0) gm/dL Hct 37.3 (34.0-46.0) % MCV 96.2 (80.0-100.0) fL MCH 33.2 (25.0-35.0) pg MCHC 34.5 (31.0-37.0) g/dL RDW 12.6 (11.5-15.5) % Plt Count 184 (150-450) k/uL MPV 8.3 Neutrophils % 60 % Lymphocytes % 30 % Monocytes % 6 % Eosinophils % 2 % Basophils % 0 % Neutrophils # 5.5 (1.3-7.7) k/uL Lymphocytes # 2.7 (1.0-4.8) k/uL Monocytes # 0.5 (0-1.0) k/uL Eosinophils # 0.2 (0-0.7) k/uL Basophils # 0.0 (0-0.2) k/uL Sodium 137 (137-145) mmol/L Potassium 3.7 (3.5-5.1) mmol/L Chloride 105 (98-107) mmol/L Carbon Dioxide 23 (22-30) mmol/L Anion Gap 9 mmol/L BUN 17 (7-17) mg/dL Creatinine 0.66 (0.52-1.04) mg/dL Est GFR (CKD-EPI)AfAm >90 (>60 ml/min/1.73 sqM) Est GFR (CKD-EPI)NonAf >90 (>60 ml/min/1.73 sqM) Glucose 96 (74-99) mg/dL Calcium 9.7 (8.4-10.2) mg/dL Disposition Clinical Impression: Headache Disposition: HOME SELF-CARE Condition: Fair Instructions (If sedation given, give patient instructions): Acute Headache (ED) Is patient prescribed a controlled substance at d/c from ED?: No Referrals: Amparo Felder MD [Primary Care Provider] - 1-2 days
[2021-01-27 15:54] LABS: Basophils % (A) 0 %; Eosinophils # (A) 0.2 k/uL (0-0.7); Eosinophils % (A) 2 %; HCT 37.3 % (34.0-46.0); HGB 12.9 gm/dL (11.4-16.0); Lymphocytes # (A) 2.7 k/uL (1.0-4.8); Lymphocytes % (A) 30 %; MCH 33.2 pg (25.0-35.0); MCHC 34.5 g/dL (31.0-37.0); MCV 96.2 fL (80.0-100.0); Mean Platelet Volume 8.3; Monocytes # (A) 0.5 k/uL (0-1.0); Monocytes % (A) 6 %; Neutrophils # (A) 5.5 k/uL (1.3-7.7); Neutrophils % (A) 60 %; Platelet Count 184 k/uL (150-450); RBC 3.88 m/uL (3.80-5.40); RDW 12.6 % (11.5-15.5); WBC 9.1 k/uL (3.8-10.6)
[2021-01-27 16:02] LABS: African American GFR (CKD) >90 (>60 ml/min/1.73 sqM); Anion Gap 9 mmol/L; Blood Urea Nitrogen 17 mg/dL (7-17); Calcium 9.7 mg/dL (8.4-10.2); Carbon Dioxide 23 mmol/L (22-30); Chloride 105 mmol/L (98-107); Glucose 96 mg/dL (74-99); Non-African American GFR(CKD) >90 (>60 ml/min/1.73 sqM); Potassium 3.7 mmol/L (3.5-5.1); Sodium 137 mmol/L (137-145)
[2021-01-27 16:07] VITALS: RESP 18
--- NOTE | 2021-01-27 16:13 | CT ---
EXAMINATION TYPE: CT brain wo con DATE OF EXAM: 01/27/2021 COMPARISON: 08/08/2020 INDICATION: Headache and visual disturbance. DLP: 1087.4 mGycm, Automated exposure control for dose reduction was used. CONTRAST: None CT of the brain is performed utilizing 3 mm thick sections through the posterior fossa and 3 mm thick sections through the remaining calvarium. Study is performed within 24 hours of arrival to the hosp [facility]. No abnormal hyperdensity is present to suggest an acute intracranial hemorrhage. No mass lesion is evident. No acute infarcts are evident. Ventricles and sulci are appropriate for the patient age. Paranasal sinuses and mastoid air cells within the [id number] are clear. IMPRESSIONS: 1. Normal CT Brain
[2021-01-27 16:55] VITALS: BP 142/87; PULSE 61; TEMP 97.9
== END 2021-01-27 16:52 | disposition home or self-care (01) ==
LOC: EC 14:09
DX: R51.9 Headache, unspecified (principal); I10 Essential (primary) hypertension; K21.9 Gastro-esophageal reflux disease without esophagitis; F41.9 Anxiety disorder, unspecified; M19.90 Unspecified osteoarthritis, unspecified site; Z79.899 Other long term (current) drug therapy; Z82.49 Family history of ischemic heart disease and other diseases of the circulatory system; Z80.3 Family history of malignant neoplasm of breast; Z83.3 Family history of diabetes mellitus; Z85.41 Personal history of malignant neoplasm of cervix uteri; Z90.49 Acquired absence of other specified parts of digestive tract
CPT/HCPCS: 36415; 93005; 80048; 85025; 70450; 96374; 96375 ×2; 96361; 99284; J1200; J2405; J1885

== ENCOUNTER 2021-05-03 00:04 | Emergency (ER) | payer OTHER ==
[2021-05-03] MEDS ORDERED: SODIUM CHLORIDE 0.9% 500 ML 500 ML IV STA (00:21)
[2021-05-03] MEDS ORDERED: MORPHINE SULFATE 4 MG/ML SYRINGE IV STA (00:21)
[2021-05-03] MEDS ORDERED: ONDANSETRON 4 MG/2 ML VIAL IVP STA (00:21)
[2021-05-03] MEDS ORDERED: SODIUM CHLORIDE 0.9% 1,000 ML IV STA (00:21)
[2021-05-03] MEDS ORDERED: PANTOPRAZOLE 40 MG/10 ML VIAL IVP STA (00:21)
--- NOTE | 2021-05-03 00:57 | ED ---
Abdominal Pain HPI - General Chief Complaint: Abdominal Pain Stated Complaint: Stomach Pain Time Seen by Provider: 05/03/21 00:20 Source: patient, RN notes reviewed, old records reviewed Mode of arrival: ambulatory Limitations: no limitations - History of Present Illness Initial Comments: This is a 35-year-old female to the emergency room today. Patient presents today for evaluation of severe abdominal pain and tenderness. Epigastric pain and tenderness. Mild nausea with burning, no travel history sick contacts. No other complaints. Patient is without fevers. No diarrhea. No dysuria. Denies chance of MD Complaint: abdominal pain -: days(s) Location: epigastric Radiation: epigastric Severity: moderate Severity scale (1-10): 4 Quality: stabbing, aching Consistency: constant Improves With: nothing Worsens With: nothing Associated Symptoms: nausea, vomiting Treatments Prior to Arrival: other (none) - Related Data Home Medications Medication Instructions Recorded Confirmed atenoloL [Tenormin] 12.5 mg PO DAILY 12/26/18 12/01/20 LORazepam [Ativan] 0.5 mg PO DAILY PRN 12/01/20 12/01/20 Allergies Allergy/AdvReac Type Severity Reaction Status Date / Time No Known Allergies Allergy Verified 05/03/21 00:15 Review of Systems ROS Statement: Those systems with pertinent positive or pertinent negative responses have been documented in the HPI. ROS Other: All systems not noted in ROS Statement are negative. Past Medical History Past Medical History: Cancer, GERD/Reflux, Hypertension, Osteoarthritis (OA) Additional Past Medical History / Comment(s): Cervical cancer, stress induced htn, stable pulmonary nodules, arhtritis bilateral ankle. History of Any Multi-Drug Resistant Organisms: MRSA Date of last positivie culture/infection: 12/25/16 MDRO Source:: Left arm axilla Past Surgical History: Appendectomy, Section, Cholecystectomy, Hernia Repair, Hysterectomy, Orthopedic Surgery, Tubal Ligation Additional Past Surgical History / Comment(s): L ankle fracture with plate/screws since removed, EGD, harish fudoplication, C-sections x3, 3 umbilical hernia repairs Past Anesthesia/Blood Transfusion Reactions: Family History of Problems w/ Anesthesia, Postoperative Nausea & Vomiting (PONV) Additional Past Anesthesia/Blood Transfusion Reaction / Comment(s): Pt has PONV as well as her mother has PONV. Pt is clausterphobic Past Psychological History: Anxiety Smoking Status: Never smoker Past Alcohol Use History: Occasional Past Drug Use History: None Reported - Past Family History Mother Family Medical History: Cancer, Hypertension Additional Family Medical History / Comment(s): Breast cancer with bilateral mastectomies-now has metastasis. Father Family Medical History: Asthma, Diabetes Mellitus, Hypertension, Rheumatoid Arthritis (RA) General Exam General appearance: alert, in no apparent distress Head exam: Present: atraumatic, normocephalic, normal inspection Eye exam: Present: normal appearance, PERRL, EOMI. Absent: scleral icterus, conjunctival injection, periorbital swelling ENT exam: Present: normal exam, mucous membranes moist Neck exam: Present: normal inspection. Absent: tenderness, meningismus, lymphadenopathy Respiratory exam: Present: normal lung sounds bilaterally. Absent: respiratory distress, wheezes, rales, rhonchi, stridor Cardiovascular Exam: Present: regular rate, normal rhythm, normal heart sounds. Absent: systolic murmur, diastolic murmur, rubs, gallop, clicks GI/Abdominal exam: Present: tenderness, guarding, normal bowel sounds. Absent: distended, rebound, rigid Extremities exam: Present: normal inspection, full ROM, normal capillary refill. Absent: tenderness, pedal edema, joint swelling, calf tenderness Back exam: Present: normal inspection Neurological exam: Present: alert, oriented X3, CN II-XII intact Psychiatric exam: Present: normal affect, normal mood Skin exam: Present: warm, dry, intact, normal color. Absent: rash Course Vital Signs 05/03/21 05/03/21 05/03/21 00:07 01:20 03:08 Temperature 97.2 F L 97.8 F Pulse Rate 79 67 62 Respiratory 17 18 18 Rate Blood Pressure 138/89 114/60 109/54 O2 Sat by Pulse 99 97 98 Oximetry - Reevaluation(s) Reevaluation #1: Medical record is reviewed Symptoms are improved here in the emergency department Patient is informed of results and questions answered Medical Decision Making - Medical Decision Making 35 female for acute abdominal pain. Patient having persistently severe abdominal pain although currently resolved. Patient at this time and can be discharged home - Lab Data Result diagrams: 05/03/21 00:46 05/03/21 00:46 Lab Results 05/03/21 05/03/21 05/03/21 Range/Units 00:46 00:46 00:46 WBC 8.9 (3.8-10.6) k/uL RBC 3.72 L (3.80-5.40) m/uL Hgb 12.1 (11.4-16.0) gm/dL Hct 35.8 (34.0-46.0) % MCV 96.3 (80.0-100.0) fL MCH 32.5 (25.0-35.0) pg MCHC 33.7 (31.0-37.0) g/dL RDW 12.0 (11.5-15.5) % Plt Count 172 (150-450) k/uL MPV 8.1 Neutrophils % 52 % Lymphocytes % 38 % Monocytes % 5 % Eosinophils % 2 % Basophils % 1 % Neutrophils # 4.6 (1.3-7.7) k/uL Lymphocytes # 3.4 (1.0-4.8) k/uL Monocytes # 0.5 (0-1.0) k/uL Eosinophils # 0.2 (0-0.7) k/uL Basophils # 0.1 (0-0.2) k/uL Sodium 134 L (137-145) mmol/L Potassium 3.6 (3.5-5.1) mmol/L Chloride 104 (98-107) mmol/L Carbon Dioxide 22 (22-30) mmol/L Anion Gap 8 mmol/L BUN 15 (7-17) mg/dL Creatinine 0.64 (0.52-1.04) mg/dL Est GFR (CKD-EPI)AfAm >90 (>60 ml/min/1.73 sqM) Est GFR (CKD-EPI)NonAf >90 (>60 ml/min/1.73 sqM) Glucose 91 (74-99) mg/dL Plasma Lactic Acid Russ (0.7-2.0) mmol/L Calcium 9.4 (8.4-10.2) mg/dL Total Bilirubin 0.3 (0.2-1.3) mg/dL AST 21 (14-36) U/L ALT 14 (4-34) U/L Alkaline Phosphatase 60 (38-126) U/L Troponin I (0.000-0.034) ng/mL Total Protein 7.1 (6.3-8.2) g/dL Albumin 4.2 (3.5-5.0) g/dL Amylase 55 (30-110) U/L Lipase 103 (23-300) U/L Urine Color Light Yellow Urine Appearance Clear (Clear) Urine pH 5.5 (5.0-8.0) Ur Specific [place] 1.011 (1.001-1.035) Urine Protein Negative (Negative) Urine Glucose (UA) Negative (Negative) Urine Ketones Negative (Negative) Urine Blood Negative (Negative) Urine Nitrite Negative (Negative) Urine Bilirubin Negative (Negative) Urine Urobilinogen <2.0 (<2.0) mg/dL Ur Leukocyte Esterase Negative (Negative) 05/03/21 05/03/21 Range/Units 00:46 00:46 WBC (3.8-10.6) k/uL RBC (3.80-5.40) m/uL Hgb (11.4-16.0) gm/dL Hct (34.0-46.0) % MCV (80.0-100.0) fL MCH (25.0-35.0) pg MCHC (31.0-37.0) g/dL RDW (11.5-15.5) % Plt Count (150-450) k/uL MPV Neutrophils % % Lymphocytes % % Monocytes % % Eosinophils % % Basophils % % Neutrophils # (1.3-7.7) k/uL Lymphocytes # (1.0-4.8) k/uL Monocytes # (0-1.0) k/uL Eosinophils # (0-0.7) k/uL Basophils # (0-0.2) k/uL Sodium (137-145) mmol/L Potassium (3.5-5.1) mmol/L Chloride (98-107) mmol/L Carbon Dioxide (22-30) mmol/L Anion Gap mmol/L BUN (7-17) mg/dL Creatinine (0.52-1.04) mg/dL Est GFR (CKD-EPI)AfAm (>60 ml/min/1.73 sqM) Est GFR (CKD-EPI)NonAf (>60 ml/min/1.73 sqM) Glucose (74-99) mg/dL Plasma Lactic Acid Russ 0.8 (0.7-2.0) mmol/L Calcium (8.4-10.2) mg/dL Total Bilirubin (0.2-1.3) mg/dL AST (14-36) U/L ALT (4-34) U/L Alkaline Phosphatase (38-126) U/L Troponin I <0.012 (0.000-0.034) ng/mL Total Protein (6.3-8.2) g/dL Albumin (3.5-5.0) g/dL Amylase (30-110) U/L Lipase (23-300) U/L Urine Color Urine Appearance (Clear) Urine pH (5.0-8.0) Ur Specific [place] (1.001-1.035) Urine Protein (Negative) Urine Glucose (UA) (Negative) Urine Ketones (Negative) Urine Blood (Negative) Urine Nitrite (Negative) Urine Bilirubin (Negative) Urine Urobilinogen (<2.0) mg/dL Ur Leukocyte Esterase (Negative) - EKG Data -: EKG Interpreted by Me (EKG shows sinus rhythm 76 [place] 170 QRS 106 QTc 445) Disposition Clinical Impression: Abdominal pain, Gastritis Disposition: HOME SELF-CARE Condition: Good Instructions (If sedation given, give patient instructions): Gastritis (ED) Is patient prescribed a controlled substance at d/c from ED?: No Referrals: Amparo Felder MD [Primary Care Provider] - 1-2 days
[2021-05-03 00:58] LABS: Basophils # (A) 0.1 k/uL (0-0.2); Basophils % (A) 1 %; Eosinophils # (A) 0.2 k/uL (0-0.7); Eosinophils % (A) 2 %; HCT 35.8 % (34.0-46.0); HGB 12.1 gm/dL (11.4-16.0); Lymphocytes # (A) 3.4 k/uL (1.0-4.8); Lymphocytes % (A) 38 %; MCH 32.5 pg (25.0-35.0); MCHC 33.7 g/dL (31.0-37.0); MCV 96.3 fL (80.0-100.0); Mean Platelet Volume 8.1; Monocytes # (A) 0.5 k/uL (0-1.0); Monocytes % (A) 5 %; Neutrophils # (A) 4.6 k/uL (1.3-7.7); Neutrophils % (A) 52 %; Platelet Count 172 k/uL (150-450); RBC 3.72 m/uL (3.80-5.40); WBC 8.9 k/uL (3.8-10.6)
[2021-05-03 01:29] LABS: ALT 14 U/L (4-34); AST 21 U/L (14-36); African American GFR (CKD) >90 (>60 ml/min/1.73 sqM); Albumin 4.2 g/dL (3.5-5.0); Alkaline Phosphatase 60 U/L (38-126); Amylase 55 U/L (30-110); Anion Gap 8 mmol/L; Blood Urea Nitrogen 15 mg/dL (7-17); Calcium 9.4 mg/dL (8.4-10.2); Carbon Dioxide 22 mmol/L (22-30); Chloride 104 mmol/L (98-107); Glucose 91 mg/dL (74-99); Lipase 103 U/L (23-300); Non-African American GFR(CKD) >90 (>60 ml/min/1.73 sqM); Potassium 3.6 mmol/L (3.5-5.1); Sodium 134 mmol/L (137-145); Total Bilirubin 0.3 mg/dL (0.2-1.3); Total Protein 7.1 g/dL (6.3-8.2)
[2021-05-03 01:31] LABS: Appearance,Urine Clear (Clear); Bilirubin,Urine Negative (Negative); Blood,Urine Negative (Negative); Color,Urine Light Yellow; Glucose,Urine (UA) Negative (Negative); Ketones,Urine Negative (Negative); Leukocyte Esterase,Urine Negative (Negative); Nitrite,Urine Negative (Negative); PH, Urine 5.5 (5.0-8.0); Protein,Urine Negative (Negative); Specific Gravity,Urine 1.011 (1.001-1.035); Urobilinogen,Urine <2.0 mg/dL (<2.0)
[2021-05-03 01:54] VITALS: RESP 18
[2021-05-03] MEDS ORDERED: HYDROmorphone 1 MG/ML 1 ML SYRINGE IVP STA (02:41)
[2021-05-03] MEDS ORDERED: MAG HYDROX/AL HYDROX/SIMETH 30 ML, HYOSCYAMINE ELIXIR 10 ML, LIDOCAINE VISCOUS 2% 10 ML PO STA ×3 (02:41)
[2021-05-03 03:09] VITALS: BP 109/54; PULSE 62; TEMP 97.8
== END 2021-05-03 03:09 | disposition home or self-care (01) ==
LOC: EC 00:04
DX: K29.70 Gastritis, unspecified, without bleeding (principal); I10 Essential (primary) hypertension; K21.9 Gastro-esophageal reflux disease without esophagitis; Z79.899 Other long term (current) drug therapy
CPT/HCPCS: 36415; 93005; 80053; 82150; 83605; 83690; 84484; 85025; 81003; 99284; 96374; 96375 ×2; 96361 ×2; J2270; J2405; C9113

== ENCOUNTER 2021-07-16 07:26 | Emergency (ER) | payer OTHER ==
[2021-07-16 07:31] VITALS: RESP 18
[2021-07-16] MEDS ORDERED: SODIUM CHLORIDE 0.9% 1,000 ML IV STA (08:06)
[2021-07-16] MEDS ORDERED: METOCLOPRAMIDE 5 MG/ML 2 ML VIAL IVP STA (08:06)
[2021-07-16] MEDS ORDERED: MAG HYDROX/AL HYDROX/SIMETH 30 ML, HYOSCYAMINE ELIXIR 10 ML PO STA ×2 (08:07)
[2021-07-16 08:59] LABS: Basophils % (A) 0 %; Eosinophils # (A) 0.2 k/uL (0-0.7); Eosinophils % (A) 2 %; HCT 39.2 % (34.0-46.0); HGB 13.1 gm/dL (11.4-16.0); Lymphocytes % (A) 12 %; MCH 32.9 pg (25.0-35.0); MCHC 33.5 g/dL (31.0-37.0); MCV 98.1 fL (80.0-100.0); Mean Platelet Volume 8.1; Monocytes # (A) 0.4 k/uL (0-1.0); Monocytes % (A) 5 %; Neutrophils # (A) 6.3 k/uL (1.3-7.7); Neutrophils % (A) 78 %; Platelet Count 173 k/uL (150-450); RBC 3.99 m/uL (3.80-5.40); RDW 12.1 % (11.5-15.5)
--- NOTE | 2021-07-16 09:04 | ED ---
Abdominal Pain HPI - General Chief Complaint: Abdominal Pain Stated Complaint: abd pain & vomiting Time Seen by Provider: 07/16/21 07:35 Source: patient, RN notes reviewed Mode of arrival: ambulatory Limitations: no limitations - History of Present Illness Initial Comments: 35-year-old female presents emergency Department with chief complaint of abdominal pain. Patient states pain started primary this morning but some last night. Patient states it's in her midabdomen, epigastric region. She states that she vomited states she still feels pressure. Patient states that she has had a prior cholecystectomy and Dar fundoplication 3 years ago. Patient states that she's had no significant diarrhea constipation no dysuria hematuria she's had prior hysterectomy. Patient denies any flank pain no chest pain. - Related Data Home Medications Medication Instructions Recorded Confirmed atenoloL [Tenormin] 12.5 mg PO DAILY 12/26/18 12/01/20 LORazepam [Ativan] 0.5 mg PO DAILY PRN 12/01/20 12/01/20 Previous Rx's Medication Instructions Recorded Omeprazole [PriLOSEC] 20 mg PO AC-BRKFST #14 cap 07/16/21 Ondansetron Odt [Zofran Odt] 4 mg PO Q8HR PRN #10 tab 07/16/21 Allergies Allergy/AdvReac Type Severity Reaction Status Date / Time No Known Allergies Allergy Verified 07/16/21 07:27 Review of Systems ROS Statement: Those systems with pertinent positive or pertinent negative responses have been documented in the HPI. ROS Other: All systems not noted in ROS Statement are negative. Past Medical History Past Medical History: Cancer, GERD/Reflux, Hypertension, Osteoarthritis (OA) Additional Past Medical History / Comment(s): Cervical cancer, stress induced htn, stable pulmonary nodules, arhtritis bilateral ankle. History of Any Multi-Drug Resistant Organisms: MRSA Date of last positivie culture/infection: 12/25/16 MDRO Source:: Left arm axilla Past Surgical History: Appendectomy, Section, Cholecystectomy, Hernia Repair, Hysterectomy, Orthopedic Surgery, Tubal Ligation Additional Past Surgical History / Comment(s): L ankle fracture with plate/screws since removed, EGD, harish fudoplication, C-sections x3, 3 umbilical hernia repairs Past Anesthesia/Blood Transfusion Reactions: Family History of Problems w/ Anesthesia, Postoperative Nausea & Vomiting (PONV) Additional Past Anesthesia/Blood Transfusion Reaction / Comment(s): Pt has PONV as well as her mother has PONV. Pt is clausterphobic Past Psychological History: Anxiety Smoking Status: Never smoker Past Alcohol Use History: Occasional Past Drug Use History: None Reported - Past Family History Mother Family Medical History: Cancer, Hypertension Additional Family Medical History / Comment(s): Breast cancer with bilateral mastectomies-now has metastasis. Father Family Medical History: Asthma, Diabetes Mellitus, Hypertension, Rheumatoid Arthritis (RA) General Exam Limitations: no limitations General appearance: alert, in no apparent distress Head exam: Present: atraumatic, normocephalic, normal inspection Eye exam: Present: normal appearance, PERRL, EOMI. Absent: scleral icterus, conjunctival injection, periorbital swelling ENT exam: Present: normal exam, mucous membranes moist Neck exam: Present: normal inspection, full ROM. Absent: tenderness, meningismu s, lymphadenopathy Respiratory exam: Present: normal lung sounds bilaterally. Absent: respiratory distress, wheezes, rales, rhonchi, stridor Cardiovascular Exam: Present: regular rate, normal rhythm, normal heart sounds. Absent: systolic murmur, diastolic murmur, rubs, gallop, clicks GI/Abdominal exam: Present: soft, tenderness, normal bowel sounds. Absent: distended, guarding, rebound, rigid Course Vital Signs 07/16/21 07:27 Temperature 98 F Pulse Rate 79 Respiratory 18 Rate Blood Pressure 135/92 O2 Sat by Pulse 99 Oximetry Medical Decision Making - Medical Decision Making 35-year-old since emergency Department with chief complaint of dental pain CT shows recurrence of viral hernia a she's had prior Dar fundoplication. Patient follow-up with primary surgeon. She does feel improved after antiemetics, GI cocktail. Patient CT also shows evidence of enteritis. - Lab Data Result diagrams: 07/16/21 08:32 07/16/21 08:32 Lab Results 07/16/21 07/16/21 07/16/21 Range/Units 08:32 08:32 08:32 WBC 8.0 (3.8-10.6) k/uL RBC 3.99 (3.80-5.40) m/uL Hgb 13.1 (11.4-16.0) gm/dL Hct 39.2 (34.0-46.0) % MCV 98.1 (80.0-100.0) fL MCH 32.9 (25.0-35.0) pg MCHC 33.5 (31.0-37.0) g/dL RDW 12.1 (11.5-15.5) % Plt Count 173 (150-450) k/uL MPV 8.1 Neutrophils % 78 % Lymphocytes % 12 % Monocytes % 5 % Eosinophils % 2 % Basophils % 0 % Neutrophils # 6.3 (1.3-7.7) k/uL Lymphocytes # 1.0 (1.0-4.8) k/uL Monocytes # 0.4 (0-1.0) k/uL Eosinophils # 0.2 (0-0.7) k/uL Basophils # 0.0 (0-0.2) k/uL Sodium 138 (137-145) mmol/L Potassium 4.0 (3.5-5.1) mmol/L Chloride 107 (98-107) mmol/L Carbon Dioxide 24 (22-30) mmol/L Anion Gap 7 mmol/L BUN 13 (7-17) mg/dL Creatinine 0.66 (0.52-1.04) mg/dL Est GFR (CKD-EPI)AfAm >90 (>60 ml/min/1.73 sqM) Est GFR (CKD-EPI)NonAf >90 (>60 ml/min/1.73 sqM) Glucose 87 (74-99) mg/dL Plasma Lactic Acid Russ (0.7-2.0) mmol/L Calcium 9.0 (8.4-10.2) mg/dL Total Bilirubin 0.9 (0.2-1.3) mg/dL AST 25 (14-36) U/L ALT 23 (4-34) U/L Alkaline Phosphatase 59 (38-126) U/L Total Protein 7.2 (6.3-8.2) g/dL Albumin 4.1 (3.5-5.0) g/dL Lipase 93 (23-300) U/L Urine Color Yellow Urine Appearance Clear (Clear) Urine pH 5.5 (5.0-8.0) Ur Specific [place] 1.018 (1.001-1.035) Urine Protein Negative (Negative) Urine Glucose (UA) Negative (Negative) Urine Ketones Negative (Negative) Urine Blood Negative (Negative) Urine Nitrite Negative (Negative) Urine Bilirubin Negative (Negative) Urine Urobilinogen <2.0 (<2.0) mg/dL Ur Leukocyte Esterase Negative (Negative) 07/16/21 Range/Units 08:32 WBC (3.8-10.6) k/uL RBC (3.80-5.40) m/uL Hgb (11.4-16.0) gm/dL Hct (34.0-46.0) % MCV (80.0-100.0) fL MCH (25.0-35.0) pg MCHC (31.0-37.0) g/dL RDW (11.5-15.5) % Plt Count (150-450) k/uL MPV Neutrophils % % Lymphocytes % % Monocytes % % Eosinophils % % Basophils % % Neutrophils # (1.3-7.7) k/uL Lymphocytes # (1.0-4.8) k/uL Monocytes # (0-1.0) k/uL Eosinophils # (0-0.7) k/uL Basophils # (0-0.2) k/uL Sodium (137-145) mmol/L Potassium (3.5-5.1) mmol/L Chloride (98-107) mmol/L Carbon Dioxide (22-30) mmol/L Anion Gap mmol/L BUN (7-17) mg/dL Creatinine (0.52-1.04) mg/dL Est GFR (CKD-EPI)AfAm (>60 ml/min/1.73 sqM) Est GFR (CKD-EPI)NonAf (>60 ml/min/1.73 sqM) Glucose (74-99) mg/dL Plasma Lactic Acid Russ 0.7 (0.7-2.0) mmol/L Calcium (8.4-10.2) mg/dL Total Bilirubin (0.2-1.3) mg/dL AST (14-36) U/L ALT (4-34) U/L Alkaline Phosphatase (38-126) U/L Total Protein (6.3-8.2) g/dL Albumin (3.5-5.0) g/dL Lipase (23-300) U/L Urine Color Urine Appearance (Clear) Urine pH (5.0-8.0) Ur Specific [place] (1.001-1.035) Urine Protein (Negative) Urine Glucose (UA) (Negative) Urine Ketones (Negative) Urine Blood (Negative) Urine Nitrite (Negative) Urine Bilirubin (Negative) Urine Urobilinogen (<2.0) mg/dL Ur Leukocyte Esterase (Negative) Disposition Clinical Impression: Hiatal hernia, Enteritis Disposition: HOME SELF-CARE Condition: Stable Instructions (If sedation given, give patient instructions): Hiatal Hernia (ED) Additional Instructions: Please return to the Emergency Department if symptoms worsen or any other concerns. Prescriptions: Omeprazole [PriLOSEC] 20 mg PO AC-BRKFST #14 cap Ondansetron Odt [Zofran Odt] 4 mg PO Q8HR PRN #10 tab PRN Reason: Nausea Is patient prescribed a controlled substance at d/c from ED?: No Referrals: Amparo Felder MD [Primary Care Provider] - 1-2 days Time of Disposition: 11:41
[2021-07-16 09:08] LABS: Appearance,Urine Clear (Clear); Bilirubin,Urine Negative (Negative); Blood,Urine Negative (Negative); Color,Urine Yellow; Glucose,Urine (UA) Negative (Negative); Ketones,Urine Negative (Negative); Leukocyte Esterase,Urine Negative (Negative); Nitrite,Urine Negative (Negative); PH, Urine 5.5 (5.0-8.0); Protein,Urine Negative (Negative); Specific Gravity,Urine 1.018 (1.001-1.035); Urobilinogen,Urine <2.0 mg/dL (<2.0)
[2021-07-16 09:29] LABS: ALT 23 U/L (4-34); AST 25 U/L (14-36); African American GFR (CKD) >90 (>60 ml/min/1.73 sqM); Albumin 4.1 g/dL (3.5-5.0); Alkaline Phosphatase 59 U/L (38-126); Anion Gap 7 mmol/L; Blood Urea Nitrogen 13 mg/dL (7-17); Carbon Dioxide 24 mmol/L (22-30); Chloride 107 mmol/L (98-107); Glucose 87 mg/dL (74-99); Lipase 93 U/L (23-300); Non-African American GFR(CKD) >90 (>60 ml/min/1.73 sqM); Sodium 138 mmol/L (137-145); Total Bilirubin 0.9 mg/dL (0.2-1.3); Total Protein 7.2 g/dL (6.3-8.2)
--- NOTE | 2021-07-16 11:31 | CT ---
EXAMINATION TYPE: CT abdomen pelvis w con DATE OF EXAM: 07/16/2021 COMPARISON: CT 12/01/2020 HISTORY: Abdominal pain CT DLP: 675.9 mGycm Automated exposure control for dose reduction was used. TECHNIQUE: Helical acquisition of images from the lung bases through the pelvis have been completed. CONTRAST: Performed without Oral Contrast and with IV Contrast, patient injected with 100 mL of Isovue 300. FINDINGS: Patient is post op at the level of the gastroesophageal junction, suspect there is recurren ce of a hiatal hernia which has developed in the interval from prior CT. At the level of the patient's operative site in the lower anterior abdominal wall there is some focal soft tissue present, axial image 62, sagittal image 52 which may be related to scar or fibromatosis, consider follow-up LUNG BASES: No significant abnormality is appreciated. AORTA: No significant abnormality is appreciated. LIVER/GB: Patient is post cholecystectomy. Liver is stable, focal metallic density centrally is uncha nged, low-attenuation within the liver may be due to hepatic steatosis. PANCREAS: No significant abnormality is seen. SPLEEN: No significant abnormality is seen. ADRENALS: No significant abnormality is seen. KIDNEYS: No significant abnormality is seen. Circumaortic left renal vein is present REPRODUCTIVE ORGANS: Ovaries are thought present, uterus is not seen BOWEL: Multiple fluid-filled loops of small and large bowel are present, some areas of bowel wall th ickening present along the jejunum. Appendix is not seen FREE AIR: No Free Air visible. ASCITES: None visible. PELVIC ADENOPATHY: None visualized. RETROPERITONEAL ADENOPATHY: No Retroperitoneal Adenopathy visible. URINARY BLADDER: No significant abnormality is seen. OSSEOUS STRUCTURES: Probable bone island present in the left femoral head is stable. Degenerative di sc changes are present in the lumbar sacral junction IMPRESSION: CORRELATE FOR POSSIBLE ENTERITIS. SUSPECT RECURRENCE OF HIATAL HERNIA. CONSIDER FOLLOW-UP FOR POSSIBL E FIBROMATOSIS ALONG THE PATIENT'S INCISION
[2021-07-16 11:56] VITALS: BP 126/85; PULSE 73; TEMP 97.7
== END 2021-07-16 11:59 | disposition home or self-care (01) ==
LOC: EC 07:26
DX: K44.9 Diaphragmatic hernia without obstruction or gangrene (principal); K52.9 Noninfective gastroenteritis and colitis, unspecified; I10 Essential (primary) hypertension; Z79.899 Other long term (current) drug therapy
CPT/HCPCS: 36415; 80053; 83605; 83690; 85025; 81003; 74177; 99284; 96374; 96361; J2765; Q9967

== ENCOUNTER 2021-10-05 15:59 | Emergency (ER) | payer OTHER ==
[2021-10-05 16:30] VITALS: BP 137/89; PULSE 87; RESP 16; TEMP 98.2
[2021-10-05] MEDS ORDERED: LIDOCAINE 1% INJ 10MG/ML (20 ML MDV) SQ ONE (18:00)
--- NOTE | 2021-10-05 18:38 | ED ---
Female Urogenital HPI - General Chief complaint: Urogenital Stated complaint: Post-op complications Time Seen by Provider: 10/05/21 17:22 Source: patient, RN notes reviewed, old records reviewed Mode of arrival: ambulatory Limitations: no limitations - History of Present Illness Initial comments: Bridgette is a 36-year-old female who presents with concerns for left-sided Bartholin gland abscess. Patient reports that she noticed swelling and pain for the past 5 days. She reports she initially was seen at [facility] and was advised to do warm but compresses and sitz baths. Patient states that today the swelling and pain became worse. She was initially seen at [facility]. Patient reports that she had an I&D completed their however no pus or cystic-like fluid was removed and Patient believes that the practitioner who performed the I&D did not go deep enough. Patient states that there is no packing placed. She was started on Keflex. Patient reports that she came here to see if she needed to have another I&D completed. Ports that she's had history of a Bartholin's gland abscess in the past and did require surgery from Dr. Hagan. - Related Data Home Medications Medication Instructions Recorded Confirmed atenoloL [Tenormin] 12.5 mg PO DAILY 12/26/18 10/05/21 Acetaminophen Tab [Tylenol Tab] 1,000 mg PO Q6HR PRN 10/05/21 10/05/21 Naproxen 500 mg PO BID PRN 10/05/21 10/05/21 Omeprazole [PriLOSEC] 20 mg PO AC-BRKFST PRN 10/05/21 10/05/21 Sulfamethoxazole/Trimethoprim 1 tab PO BID 10/05/21 10/05/21 [Bactrim DS 800-160 mg] Allergies Allergy/AdvReac Type Severity Reaction Status Date / Time No Known Allergies Allergy Verified 10/05/21 18:00 Review of Systems ROS Statement: Those systems with pertinent positive or pertinent negative responses have been documented in the HPI. ROS Other: All systems not noted in ROS Statement are negative. Past Medical History Past Medical History: Cancer, GERD/Reflux, Hypertension, Osteoarthritis (OA) Additional Past Medical History / Comment(s): Cervical cancer, stress induced htn, stable pulmonary nodules, arhtritis bilateral ankle. History of Any Multi-Drug Resistant Organisms: MRSA Date of last positivie culture/infection: 12/25/16 MDRO Source:: Left arm axilla Past Surgical History: Appendectomy, Section, Cholecystectomy, Hernia Repair, Hysterectomy, Orthopedic Surgery, Tubal Ligation Additional Past Surgical History / Comment(s): L ankle fracture with plate/screws since removed, EGD, harish fudoplication, C-sections x3, 3 umbilical hernia repairs Past Anesthesia/Blood Transfusion Reactions: Family History of Problems w/ Anesthesia, Postoperative Nausea & Vomiting (PONV) Additional Past Anesthesia/Blood Transfusion Reaction / Comment(s): Pt has PONV as well as her mother has PONV. Pt is clausterphobic Past Psychological History: Anxiety Smoking Status: Never smoker Past Alcohol Use History: Occasional Past Drug Use History: None Reported - Past Family History Mother Family Medical History: Cancer, Hypertension Additional Family Medical History / Comment(s): Breast cancer with bilateral mastectomies-now has metastasis. Father Family Medical History: Asthma, Diabetes Mellitus, Hypertension, Rheumatoid Arthritis (RA) General Exam - General Exam Comments Initial Comments: 36 year old female, Alert and oriented. No acute distress. Limitations: no limitations Head exam: Present: atraumatic, normocephalic, normal inspection Eye exam: Present: normal appearance, PERRL, EOMI. Absent: scleral icterus, conjunctival injection, periorbital swelling ENT exam: Present: normal exam, mucous membranes moist Neck exam: Present: normal inspection. Absent: tenderness, meningismus, lymphadenopathy Respiratory exam: Present: normal lung sounds bilaterally. Absent: respiratory distress, wheezes, rales, rhonchi, stridor Cardiovascular Exam: Present: regular rate, normal rhythm, normal heart sounds. Absent: systolic murmur, diastolic murmur, rubs, gallop, clicks GI/Abdominal exam: Present: soft, normal bowel sounds. Absent: distended, tenderness, guarding, rebound, rigid External exam: Present: erythema (Patient has evidence of swelling and erythema over the left labia concern for Bartholin's gland cyst/abscess. ), swelling. Absent: normal external exam Extremities exam: Present: normal inspection, full ROM, normal capillary refill. Absent: tenderness, pedal edema, joint swelling, calf tenderness Back exam: Present: normal inspection, full ROM Neurological exam: Present: alert, oriented X3, CN II-XII intact Psychiatric exam: Present: normal affect, normal mood Skin exam: Present: warm, dry, intact, normal color. Absent: rash Course Vital Signs 10/05/21 16:28 Temperature 98.2 F Pulse Rate 87 Respiratory 16 Rate Blood Pressure 137/89 O2 Sat by Pulse 95 Oximetry Procedures - Incision & Drainage Indication: bartholin gland abscess Site: vulva/vagina Size (cm): 3 Anesthetic Used: lidocaine 1% Amount (mLs): 3 I&D Cleaning Method: Iodine (When lidocaine injected, bartholin gland opened through its natural duct and clear fluid and some purulent fluid was expressed. This continued to be massaged and 3cc of purulent fluid remvoed and abscess is now diminished. Patient did not have incision completed as the duct opened naturally ) Sterile Field Used?: Yes I&D Drainage Obtained: Pus, Blood Culture Obtained?: Yes Patient Tolerated Procedure: well, no complications Medical Decision Making - Medical Decision Making 28-year-old female presents for on gland abscess. She was seen earlier today at [facility] and started on antibiotics. When incision and drainage was attempted be completed by provider at that time nothing drained. Today in our emergency room Patient had lidocaine injected. Once I injected 3 mL of lidocaine in the natural gland duct opened and expressed purulent and clear fluid. This was then massaged and the abscess was removed to near entirety. Patient elected to avoid another incision. I advised she needs to continue to do sits baths. Take antibiotic as previously prescribed. Advised follow-up with DESIGN ENGINEERING MANAGER. Disposition Clinical Impression: Bartholin's gland abscess Disposition: HOME SELF-CARE Condition: Good Instructions (If sedation given, give patient instructions): Bartholin Cyst (ED) Additional Instructions: Advised to follow-up with DESIGN ENGINEERING MANAGER. Continue to do warm sits baths. Take antibiotic as previously prescribed. Is patient prescribed a controlled substance at d/c from ED?: No Referrals: Amparo Felder MD [Primary Care Provider] - 1-2 days Danita Singleton DO [Doctor of Osteopathic Medicine] - 1-2 days Time of Disposition: 18:36
== END 2021-10-05 18:53 | disposition home or self-care (01) ==
LOC: EC 15:59
DX: N75.1 Abscess of Bartholin's gland (principal); I10 Essential (primary) hypertension; K21.9 Gastro-esophageal reflux disease without esophagitis; M19.90 Unspecified osteoarthritis, unspecified site; F41.9 Anxiety disorder, unspecified; Z79.899 Other long term (current) drug therapy
CPT/HCPCS: 87070; 87205; 56420; 99283; J2001

== ENCOUNTER 2021-10-11 05:21 | Emergency (ER) | payer OTHER ==
[2021-10-11 05:31] VITALS: BP 129/93; PULSE 76; RESP 16; TEMP 97.9
[2021-10-11] MEDS ORDERED: LIDOCAINE 1% INJ 10MG/ML (20 ML MDV) SQ ONE (05:56)
--- NOTE | 2021-10-11 06:37 | ED ---
Female Urogenital HPI - General Chief complaint: Urogenital Stated complaint: Cyst Time Seen by Provider: 10/11/21 05:38 Source: patient Mode of arrival: ambulatory Limitations: no limitations - History of Present Illness Initial comments: This patient is a 36-year-old woman presenting to have evaluation for what she suspects his Bartholin's cyst. She has had swelling and pain getting progressively worse over past few days. She was seen here and sent home. She states that she has had increased swelling since that time. Review of records reveals that the true yesterday consisted of injecting lidocaine and at that time there was spontaneous drainage. No no incision was performed. MD Complaint: other -: days(s) Location: labia Quality: dull Consistency: constant Improves with: none Worsens with: movement Patient : No - Related Data Home Medications Medication Instructions Recorded Confirmed atenoloL [Tenormin] 12.5 mg PO DAILY 12/26/18 10/05/21 Acetaminophen Tab [Tylenol Tab] 1,000 mg PO Q6HR PRN 10/05/21 10/05/21 Naproxen 500 mg PO BID PRN 10/05/21 10/05/21 Omeprazole [PriLOSEC] 20 mg PO AC-BRKFST PRN 10/05/21 10/05/21 Sulfamethoxazole/Trimethoprim 1 tab PO BID 10/05/21 10/05/21 [Bactrim DS 800-160 mg] Previous Rx's Medication Instructions Recorded Cefixime [Suprax] 400 mg PO DAILY #7 cap 10/11/21 Clindamycin HCl 300 mg PO QID #28 cap 10/11/21 Allergies Allergy/AdvReac Type Severity Reaction Status Date / Time No Known Allergies Allergy Verified 10/05/21 18:00 Review of Systems ROS Statement: Those systems with pertinent positive or pertinent negative responses have been documented in the HPI. ROS Other: All systems not noted in ROS Statement are negative. Constitutional: Denies: fever, chills Respiratory: Denies: cough, dyspnea Cardiovascular: Denies: chest pain Gastrointestinal: Denies: abdominal pain, vomiting, diarrhea Genitourinary: Reports: as per HPI Musculoskeletal: Denies: back pain Skin: Denies: rash Past Medical History Past Medical History: Cancer, GERD/Reflux, Hypertension, Osteoarthritis (OA) Additional Past Medical History / Comment(s): Cervical cancer, stress induced htn, stable pulmonary nodules, arhtritis bilateral ankle. History of Any Multi-Drug Resistant Organisms: MRSA Date of last positivie culture/infection: 12/25/16 MDRO Source:: Left arm axilla Past Surgical History: Appendectomy, Section, Cholecystectomy, Hernia Repair, Hysterectomy, Orthopedic Surgery, Tubal Ligation Additional Past Surgical History / Comment(s): L ankle fracture with plate/screws since removed, EGD, harish fudoplication, C-sections x3, 3 umbilical hernia repairs Past Anesthesia/Blood Transfusion Reactions: Family History of Problems w/ Anesthesia, Postoperative Nausea & Vomiting (PONV) Additional Past Anesthesia/Blood Transfusion Reaction / Comment(s): Pt has PONV as well as her mother has PONV. Pt is clausterphobic Past Psychological History: Anxiety Smoking Status: Never smoker Past Alcohol Use History: Occasional Past Drug Use History: None Reported - Past Family History Mother Family Medical History: Cancer, Hypertension Additional Family Medical History / Comment(s): Breast cancer with bilateral mastectomies-now has metastasis. Father Family Medical History: Asthma, Diabetes Mellitus, Hypertension, Rheumatoid Arthritis (RA) General Exam Limitations: no limitations General appearance: alert, in no apparent distress Head exam: Present: atraumatic, normocephalic Eye exam: Present: normal appearance Respiratory exam: Present: normal lung sounds bilaterally. Absent: respiratory distress, wheezes, rales, rhonchi, stridor Cardiovascular Exam: Present: regular rate, normal rhythm, normal heart sounds. Absent: systolic murmur, diastolic murmur, rubs, gallop GI/Abdominal exam: Present: soft. Absent: distended, tenderness External exam: Present: other (There is approximately 3 cm diameter Bartholin's cyst left introitus.) Course Vital Signs 10/11/21 10/11/21 05:27 06:44 Temperature 97.9 F 97.9 F Pulse Rate 76 76 Respiratory 16 16 Rate Blood Pressure 129/93 129/93 O2 Sat by Pulse 98 98 Oximetry Procedures - Incision & Drainage Consent Obtained: verbal consent Site: vulva/vagina Anesthetic Used: lidocaine 1% Scalpel Used: #11 I&D Drainage Obtained: Pus, Blood Packing: Other (Word catheter) Complications: pain Patient Tolerated Procedure: well Medical Decision Making - Medical Decision Making Patient is 36-year-old woman with Bartholin's cyst. Standard incision and drainage was performed and word catheter placed without complication though patient did have moderate amount of pain. Discussed the further care and follow-up. Return parameters discussed Disposition Clinical Impression: Bartholin cyst Disposition: HOME SELF-CARE Condition: Good Instructions (If sedation given, give patient instructions): Bartholin Cyst (ED) Prescriptions: Clindamycin HCl 300 mg PO QID #28 cap Cefixime [Suprax] 400 mg PO DAILY #7 cap Is patient prescribed a controlled substance at d/c from ED?: No Referrals: Amparo Felder MD [Primary Care Provider] - 1-2 days
== END 2021-10-11 06:44 | disposition home or self-care (01) ==
LOC: EC 05:21
DX: N75.0 Cyst of Bartholin's gland (principal); I10 Essential (primary) hypertension; K21.9 Gastro-esophageal reflux disease without esophagitis; Z79.83 Long term (current) use of bisphosphonates
CPT/HCPCS: 56420; 99283; J2001

== ENCOUNTER → 2024-01-25 | Outpatient (CLI) | payer BC ==
--- NOTE | 2024-01-29 10:39 | CT ---
EXAMINATION TYPE: CT abdomen pelvis wo con CT DLP: 295 mGycm, Automated exposure control for dose reduction was used. DATE OF EXAM: 01/25/2024 6:55 PM COMPARISON: CT abdomen pelvis most recent from CLINICAL INDICATION:Female, 38 years old with history of S39.91XA UNSPECIFIED INJURY OF ABDOMEN, INIT IAL ENCOUNTER; trauma TECHNIQUE: Axial CT abdomen pelvis wo con;Sagittal and coronal reformats were created on a separate workstation. Contrast used: mL of , (none if empty) Oral contrast used: without Oral Contrast (none if empty) FINDINGS: LOWER CHEST: Small to moderate hiatal hernia. Suspected of dehiscence of fundoplication. Lung bases a re clear. No pleural effusions. ABDOMEN LIVER: Unremarkable GALLBLADDER AND BILE DUCTS: Bile ducts unremarkable. Cholecystectomy clips in the gallbladder fossa. PANCREAS: Unremarkable. SPLEEN: Unremarkable. ADRENAL GLANDS: Unremarkable. KIDNEYS AND URETERS: No evidence of hydronephrosis or renal calculus. The ureters are unremarkable. PELVIS BLADDER: Unremarkable REPRODUCTIVE: Unremarkable. ABDOMEN & PELVIS STOMACH AND BOWEL: No evidence of bowel obstruction. PERITONEUM/RETROPERITONEUM: No evidence of pneumoperitoneum or free fluid. VASCULATURE: No evidence of aortic aneurysm. MUSCULOSKELETAL: No acute osseous abnormalities LYMPH NODES: No gross evidence for lymphadenopathy. SOFT TISSUE/ABDOMINAL WALL: Unremarkable IMPRESSION: 1. Grossly no specific injury identified. 2. Status post cholecystectomy. 3. Suspected dehiscence of a fundoplication. 4. Moderate hiatal hernia.
== END | disposition home or self-care (01) ==
LOC: RADCTMAIN 18:31
PROVIDERS: ATTEND Family Medicine
DX: S39.91XA Unspecified injury of abdomen, initial encounter (principal); K44.9 Diaphragmatic hernia without obstruction or gangrene; Z90.49 Acquired absence of other specified parts of digestive tract
CPT/HCPCS: 74176

== ENCOUNTER → 2024-10-19 | Outpatient (CLI) | payer BC ==
--- NOTE | 2024-10-20 07:36 | MM ---
Reason for Exam: Screening (asymptomatic). Baseline mammogram. Patient History: Menarche at age 11. First Full-Term at age 19. Hysterectomy at age 24. Patient has history of breast feeding. Mother had breast cancer, age 50. Risk Values: Rosi 5 year model risk: 1.2%. NCI Lifetime model risk: 18.2%. Prior Study Comparison: 05/31/2017 Bilateral Diagnostic Ultrasound, [facility]. 12/15/2017 Left Diagnostic Ultrasound, [facility]. 07/07/2018 Left Diagnostic Ultrasound, [facility]. Patient's first Mammogram. Tissue Density: The breasts are heterogeneously dense, which may obscure small masses. Findings: Analyzed By CAD. There is no suspicious group of microcalcifications or new suspicious mass in either breast. Overall Assessment: Negative, BI-RAD 1 Management: Screening Mammogram of both breasts in 1 year. . Patient should continue monthly self-breast exams. A clinical breast exam by your physician is recommended on an annual basis. This exam should not preclude additional follow-up of suspicious palpable abnormalities. Note on Rosi scores and lifetime risk: 1. A Rosi score greater than 3% is considered moderate risk. If this is the case, consider specialist referral to assess eligibility for a risk reducing agent. 2. If overall lifetime risk for the development of breast cancer is 20% or higher, the patient may qualify for future screening with alternating mammogram and breast MRI. [facility], , 10/20/2024 7:34 AM. Electronically signed and approved by: Nic Ravi M.D. Radiolog[facility]
== END | disposition home or self-care (01) ==
LOC: RADMAMWWP 15:41
PROVIDERS: ATTEND Family Medicine
DX: Z12.31 Encounter for screening mammogram for malignant neoplasm of breast (principal); R92.333 Mammographic heterogeneous density, bilateral breasts; Z80.3 Family history of malignant neoplasm of breast
CPT/HCPCS: 77063; 77067